=== PATIENT | male | born 1970 | race Caucasian/White ===

== ENCOUNTER 2021-01-02 06:05 | Outpatient (REF) | payer OTHER, SELFPAY ==
[2021-01-02 11:49] LABS: Estimated Average Glucose 252 mg/dL; Hemoglobin A1c % 10.4 %
[2021-01-02 12:08] LABS: Alanine Aminotransferase 59 U/L (0-40); Albumin Level 4.2 g/dL (3.5-5.0); Alkaline Phosphatase 147 U/L (39-117); Anion Gap 16 (12-20); Aspartate Amino Transferase 34 U/L (5-37); Bilirubin Total 0.9 mg/dL (0.0-1.0); Blood Urea Nitrogen 12 mg/dL (9-16); Calcium 8.9 mg/dL (8.4-10.2); Carbon Dioxide 27 mmol/L (22-29); Chloride 99 mmol/L (96-108); Cholesterol 190 mg/dL; Estimated Glomerular Filt Rate > 60; Glucose Fasting 296 mg/dL (60-99); HDL Cholesterol 28 mg/dL; LDL Cholesterol Calculated 114 mg/dl; Potassium 4.6 mmol/L (3.3-5.1); Sodium 137 mmol/L (135-145); Total Protein 7.3 g/dL (6.5-8.0); Triglycerides 241 mg/dL
[2021-01-02 12:28] LABS: Prostate Specific Antigen Scr 0.13 ng/mL (<0.05-4.0); TSH reflex Free T4 1.03 uIU/mL (0.32-4.0)
[2021-01-02 12:29] LABS: Creatinine Urine 180.14 mg/dL; Microalbum/Creatinine Ratio Ur 165.4 ug/mg cr
== END 2021-01-02 06:06 | disposition home or self-care (01) ==
LOC: HO.HMGCLDS 06:05
PROVIDERS: PCP Nurse Practitioner Family; Visit Provider Nurse Practitioner Family
DX: Z00.00 Encounter for general adult medical examination without abnormal findings (principal); Z12.5 Encounter for screening for malignant neoplasm of prostate; E11.9 Type 2 diabetes mellitus without complications
CPT/HCPCS: 36415; 80053; 80061; 82043; 83036; 84153; 84443

== ENCOUNTER 2021-01-08 06:33 | Outpatient (REF) | payer OTHER, SELFPAY ==
[2021-01-08 12:09] LABS: HBsAGNum1 0.25 S/CO (0.00-0.99); Hepatitis B Surface Antigen Negative (Negative); ~HepC Num1 0.07 S/CO (0.00-0.79); ~Hepatitis C Antibody Nonreactive (Nonreactive)
[2021-01-08 12:27] LABS: Gamma Glutamyl Transpeptidase 52 U/L (11-51)
[2021-01-08 12:48] LABS: HBS Num1 0.04 mIU/mL (0-7.99); HBc Num1 0.06 S/CO (0.00-0.79); Hepatitis B Core Antibody Nonreactive (Nonreactive); ~Hepatitis B Surface Antibody NONREACTIVE (Nonreactive)
[2021-01-10 08:43] LABS: Hepatitis A Antibody IgM 0.11 Index (0-0.79); ~Hepatitis A Antibody IgM Nonreactive (Nonreactive)
== END 2021-01-08 06:34 | disposition home or self-care (01) ==
LOC: HO.HMGCLDS 06:33
PROVIDERS: PCP Nurse Practitioner Family; Visit Provider Nurse Practitioner Family
DX: R74.8 Abnormal levels of other serum enzymes (principal)
CPT/HCPCS: 36415; 82977; 86704; 86706; 86709; 86803; 87340

== ENCOUNTER 2021-01-18 07:49 | Outpatient (REF) | payer OTHER, SELFPAY ==
--- NOTE | ~2021-01-18 | US_ITS ---
EXAMINATION: US ABDOMEN COMPLETE CLINICAL INFORMATION: Abnormal levels of serum enzymes. COMPARISON: None TECHNIQUE: Real-time imaging of the abdominal viscera. FINDINGS: Limited exam due to body habitus. PANCREAS: The head and the body of the pancreas are homogeneous in echotexture. The tail of the pancreas is obscured by overlying gas. ABDOMINAL AORTA: The proximal, mid, and distal segments are normal in caliber. INFERIOR VENA CAVA: Visualized portions are normal. LIVER: The liver is enlarged in size. The liver contour is normal. Parenchymal echogenicity is increased. No focal hepatic lesion. There is no intrahepatic biliary duct dilatation seen. GALLBLADDER: There are multiple echogenic mobile gallstones without wall thickening. There is no gallbladder wall thickening. COMMON BILE DUCT: Common bile duct is not visualized. RIGHT KIDNEY: There is an anechoic cyst in the lower pole lateral cortex partially exophytic measuring 0.9 x 0.6 x 0.8 cm. No additional lesions seen. No hydronephrosis. No renal calculi or focal parenchymal lesions. The kidney measures 13.4 cm in maximum dimension. LEFT KIDNEY: Normal. No hydronephrosis. No renal calculi or focal parenchymal lesions. The kidney measures 13.4 cm in maximum dimension. SPLEEN: The spleen is enlarged and homogeneous in echotexture. The spleen measures 15.4 cm in maximum dimension. FREE FLUID: None. US/US abdomen complete IMPRESSION: Multiple mobile echogenic gallstones without wall thickening. Mild hepatomegaly with hepatic steatosis. No focal lesion seen. Simple cyst lower pole right kidney. Mild splenomegaly.
== END 2021-01-18 07:50 | disposition home or self-care (01) ==
LOC: HO.US 07:49
PROVIDERS: PCP Nurse Practitioner Family; Visit Provider Nurse Practitioner Family
DX: R74.8 Abnormal levels of other serum enzymes (principal)
CPT/HCPCS: 76700

== ENCOUNTER → 2021-02-26 09:13 | Outpatient (REF) | payer OTHER, SELFPAY ==
--- NOTE | 2021-02-26 09:16 | CA_ITS ---
Transthoracic Echocardiogram Patient (Last, First, Middle): Jarrett Moore M Gender: Male Date of : 1970 Age: 50 Procedure Date: 02/26/2021 Procedure Type: Transthoracic Echocardiogram Location: OP Height: 187.96 cm Weight: 149.69 kg BSA: 2.69 m2 Heart Rate: bpm BP: 122 / 80 mmHg Fill Technician: RJ Referring MD: Homero Car [facility] Symptoms: R01.1 - Cardiac murmur, unspecified Study Quality: Fair/contrast ECG Rhythm: Sinus Conclusions: - The left ventricular systolic function is normal. The visually estimated ejection fraction is between 60-65%. - No obvious valvular pathology seen on this study. Findings Procedure Information Contrast agent, definity, is being given per protocol without apparent complications. Left Ventricle Normal left ventricular cavity size. There is normal left ventricular wall thickness. The left ventricular systolic function is normal. The visually estimated ejection fraction is between 60-65%. There is no evidence of regional wall motion abnormalities. Diastolic function is normal for age. Right Ventricle Normal right ventricular cavity size and systolic function. Atria The left atrium is normal in size. The right atrium is normal in size. Aortic Valve There is a normal trileaflet aortic valve. There is no aortic valve stenosis. The mean gradient is 4 mmHg. The aortic valve area is 4.03 cm2. There is no aortic valve regurgitation. Mitral Valve There is mild anterior mitral leaflet thickening. There is trace mitral valve regurgitation. There is no mitral valve stenosis. Pulmonic Valve The pulmonic valve was not well visualized. Tricuspid Valve Normal tricuspid valve structure. There is trace tricuspid valve regurgitation. The pulmonary artery systolic pressure is normal. Great Vessels The asc aorta is normal in size. Venous The inferior vena cava is normal in size and collapses greater than 50% with inspiration. Pericardium/Pleural There is no evidence of pericardial effusion. Prior Study Comparison No significant change compared to prior study dated: 01/12/2018. Recommendations, Care & Conclusions No obvious valvular pathology seen on this study. Measurements 2D Linear Measurements IVSd: 1.04 0.6-0.9/0.6-1.0 cm LVIDd: 5.60 3.9-5.3/4.2-5.9 cm LVIDd Index: 2.08 2.4-3.2/2.2-3.1 cm/m2 LVIDs: 3.75 2.0-3.6 cm LVPWd: 1.07 0.7-1.1 cm Ao Root: 3.30 2.1-3.5 cm LA Diam: 4.50 2.7-3.8/3.0-4.0 cm LAIDs Index: 1.67 1.5-2.3 cm/m2 LV Mass: 294.01 67-162/88-224 g LV Mass Index: 109.30 43-95/49-115 g/m2 LVOT Diam: 2.20 3.0+(-)1.3 cm 2D Systolic Function EF 4C: 63.30 >55% EF 2C: 63.70 >55% EF BiP: 63.10 >55% Mitral Valve MV Pk E: 0.85 MV PK A: 0.97 MV Decel Time: 268.00 E/A: 0.90 E'Lateral: 13.10 E'Medial: 7.62 E/E' Med: 11.10 E/E' Lat: 6.50 PHT: 78.00 MVA PHT: 2.82 Decel Kingfisher: 3.16 Aortic Valve AoV Pk Allan: 1.41 AoV Mn Allan: 0.93 AoV VTI: 0.28 AoV Pk Grad: 8.00 Aov Mn Grad: 4.00 WILFRIDO Cont.VTI: 4.03 LVOT LVOT Pk Allan: 1.17 LVOT Mn Allan: 0.85 LVOT VTI: 0.30 LVOT Pk Grad: 5.00 LVOT Mn Grad: 3.00 LVOT Diam: 2.20 LVOT Area: 3.80 Diastolic Function MV Pk E: 0.85 MV Pk A: 0.97 E/A: 0.90 E'Medial: 7.62 E/E' Med: 11.10 E' Laterial: 13.10 E/E' Lat: 6.50 Tricuspid Valve TR Pk Allan: 1.87 TR Pk Grad: 14.00 RA Press: 3.00 RVSP: 17.00 Great Vessels Aorta Ao Root-2D: 3.30 2.0-3.7 cm Ao Asc: 3.50 2.1-3.4 cm Ao Arch: 2.60 Updated in Other Vendor System with Status of Final Juan Spivey MD electronically signed on 02/27/2021 11:25:26 AM with status of Final
== END ==
LOC: HO.CARD 09:13
PROVIDERS: Visit Provider Nurse Practitioner Family
DX: R01.1 Cardiac murmur, unspecified (principal)
CPT/HCPCS: 93306; Q9957

== ENCOUNTER 2021-06-13 06:13 | Outpatient (REF) | payer OTHER, SELFPAY ==
[2021-06-13 12:03] LABS: Alanine Aminotransferase 32 U/L (0-40); Albumin Level 4.3 g/dL (3.5-5.0); Alkaline Phosphatase 90 U/L (39-117); Anion Gap 13 (12-20); Aspartate Amino Transferase 20 U/L (5-37); Bilirubin Total 0.4 mg/dL (0.0-1.0); Blood Urea Nitrogen 14 mg/dL (9-16); Calcium 9.1 mg/dL (8.4-10.2); Carbon Dioxide 25 mmol/L (22-29); Chloride 104 mmol/L (96-108); Cholesterol 186 mg/dL; Estimated Average Glucose 108 mg/dL; Estimated Glomerular Filt Rate > 60; Glucose Fasting 129 mg/dL (60-99); HDL Cholesterol 30 mg/dL; Hemoglobin A1C 148.3331 umol/L; Hemoglobin A1c % 5.4 %; LDL Cholesterol Calculated 130 mg/dl; Potassium 4.4 mmol/L (3.3-5.1); Sodium 138 mmol/L (135-145); Total Protein 7.4 g/dL (6.5-8.0); Triglycerides 130 mg/dL
== END 2021-06-13 06:14 | disposition home or self-care (01) ==
LOC: HO.HMGCLDS 06:13
PROVIDERS: PCP Nurse Practitioner Family; Visit Provider Nurse Practitioner Family
DX: E11.9 Type 2 diabetes mellitus without complications (principal)
CPT/HCPCS: 36415; 80053; 80061; 83036

== ENCOUNTER 2021-09-28 06:11 | Outpatient (REF) | payer OTHER, SELFPAY ==
[2021-09-28 11:37] LABS: Appearance Urine TURBID; Color Urine YELLOW; Glucose Urine UA NEG (NEG); Leukocyte Esterase Urine NEG (NEG); Nitrite Urine NEG (NEG); PH 5.5 (5.0-8.0); Specific Gravity - Urine >= 1.030 (1.005-1.025); Urine Blood NEG (NEG); Urine Ketones NEG (NEG); Urine Protein NEG (NEG-TRACE)
[2021-09-28 11:58] LABS: Estimated Average Glucose 114 mg/dL; Hemoglobin A1c % 5.6 %
[2021-09-28 12:13] LABS: Alanine Aminotransferase 34 U/L (0-40); Albumin Level 4.4 g/dL (3.5-5.0); Alkaline Phosphatase 89 U/L (39-117); Anion Gap 14 (12-20); Aspartate Amino Transferase 20 U/L (5-37); Bilirubin Total 0.7 mg/dL (0.0-1.0); Blood Urea Nitrogen 14 mg/dL (9-16); Calcium 9.4 mg/dL (8.4-10.2); Carbon Dioxide 23 mmol/L (22-29); Chloride 104 mmol/L (96-108); Cholesterol 209 mg/dL; Estimated Glomerular Filt Rate > 60; Glucose Fasting 119 mg/dL (60-99); HDL Cholesterol 27 mg/dL; LDL Cholesterol Calculated 144 mg/dl; Potassium 4.1 mmol/L (3.3-5.1); Sodium 137 mmol/L (135-145); Total Protein 7.6 g/dL (6.5-8.0); Triglycerides 193 mg/dL
[2021-09-28 12:22] LABS: Creatinine Urine 224.71 mg/dL; Microalbum/Creatinine Ratio Ur 21.3 ug/mg cr
[2021-09-28 12:35] LABS: TSH reflex Free T4 1.28 uIU/mL (0.32-4.0)
== END 2021-09-28 06:12 | disposition home or self-care (01) ==
LOC: HO.HMGCLDS 06:11
PROVIDERS: PCP Nurse Practitioner Family; Visit Provider Nurse Practitioner Family
DX: E11.9 Type 2 diabetes mellitus without complications (principal)
CPT/HCPCS: 36415; 80053; 80061; 81003; 82043; 83036; 84443

== ENCOUNTER → 2021-10-01 09:33 | Outpatient (BNVA) | payer OTHER, SELFPAY | PROVIDERS: PCP Nurse Practitioner Family; Referring Provider Nurse Practitioner Family; Visit Provider Surgery ==

== ENCOUNTER → 2021-11-13 10:09 | Outpatient (BNVA) | payer OTHER, SELFPAY | PROVIDERS: PCP Nurse Practitioner Family; Referring Provider Nurse Practitioner Family; Visit Provider Nurse Practitioner ==

== ENCOUNTER 2021-11-27 06:59 | Day surgery (SDC) | payer OTHER, SELFPAY ==
[2021-11-22 16:32] VITALS: BMI 40.8
--- NOTE | 2021-11-26 08:15 | P.CONAN_ITS ---
Documented by User: Shea Irwin NP 11/26/21 08:17 HPI - Anesthesia Eval Consult details Narrative: 51yo M for Hernia Repair Umbilical with Possible Mesh PMFSH Active Problems Active Problems: All Active Problems (Updated 11/22/21 @ 16:30 by Aleja Webster RN) Acute sinusitis (Acute) Occipital neuralgia (Acute) Erectile dysfunction (Acute) GERD (gastroesophageal reflux disease) (Acute) Tendonitis (Acute) Strain of other extensor muscle, fascia and tendon at forearm level, left arm, initial encounter (Acute) Diabetes (Acute) Physical exam (Acute) Screening PSA (prostate specific antigen) (Acute) Systolic murmur (Acute) Folliculitis (Acute) Elevated liver enzymes (Acute) Microalbuminuria (Acute) Lateral epicondylitis of elbow (Acute) Upper respiratory tract infection (Acute) Diabetes (Acute) Umbilical hernia (Acute) Screening for colon cancer (Acute) Dyslipidemia (Acute) Family history of polyps in the colon (Acute) Morbid obesity (Acute) Diabetes mellitus (Acute) Past Medical History Medical History (Updated 11/22/21 @ 16:30 by Aleja Webster RN) Diabetes mellitus Heart murmur Morbid obesity PONV (postoperative nausea and vomiting) Refused pneumococcal vaccination Family History Family History Father No problems noted. Father No problems noted. Surgical History Surgical History (Updated 11/22/21 @ 16:30 by Aleja Webster RN) H/O heart surgery History of surgery on extremity Social History Social History Housing: House Alcohol intake: current Alcohol intake frequency: holidays/special occasions only Patient Tobacco Use Status: Current everyday Tobacco user Tobacco use type: Cigarette Cigarettes Per Day: 15 e-Cigarette/Vaping Use: Never Used Second Hand Smoke Exposure: No Use of substances other than those prescribed or required for medical reasons: No Are you DNR?: No Advance Directives: No Advance Directives Information Provided: Yes Advance Directives on File: No service: No Current occupational status: employed Current occupation: [employer] Current occupational exposures/hazards: No Meds Allergies Allergy/AdvReac Type Severity Reaction Status Date / Time No Known Allergies Allergy Verified 11/27/21 07:07 [No Known Allergies*] Home Medications Medication Instructions Recorded Confirmed Last Taken Type diclofenac sodium 75 mg 75 mg PO Q OTHER DAY 09/10/21 11/22/21 Unknown History tablet,delayed release Exam Exam Date and Time: November 26, 2021 0815 Height,Weight and Vital Signs: Height 6 ft 2 in Weight 144.242 kg Pertinent Lab Results Pertinent Lab Results: Laboratory Tests 09/28/21 06:23 Sodium 137 Potassium 4.1 Chloride 104 Carbon Dioxide 23 BUN 14 Creatinine 0.84 Narrative Narrative: ECHO 02/2021 Conclusions: - The left ventricular systolic function is normal.? The visually estimated ejection fraction is between 60-65%. ? - No obvious valvular pathology seen on this study.? ?? Assessment and Plan Assessment Anesthesia Assessment: Chart Reviewed Documented by User: Brannon Trujillo MD 11/27/21 09:24 [facility] Past Medical History Medical History (Updated 11/22/21 @ 16:30 by Aleja Webster RN) Diabetes mellitus Heart murmur Morbid obesity PONV (postoperative nausea and vomiting) Refused pneumococcal vaccination Family History Family History Father No problems noted. Father No problems noted. Family history of problems with anesthesia: No Surgical History Surgical History (Updated 11/22/21 @ 16:30 by Aleja Webster RN) H/O heart surgery History of surgery on extremity History of Problems with Anesthesia: Yes (PONV) Social History Social History Housing: House Alcohol intake: current Alcohol intake frequency: holidays/special occasions only Patient Tobacco Use Status: Current everyday Tobacco user Tobacco use type: Cigarette Cigarettes Per Day: 15 e-Cigarette/Vaping Use: Never Used Second Hand Smoke Exposure: No Use of substances other than those prescribed or required for medical reasons: No Are you DNR?: No Advance Directives: No Advance Directives Information Provided: Yes Advance Directives on File: No service: No Current occupational status: employed Current occupation: [employer] Current occupational exposures/hazards: No Meds Allergies Allergy/AdvReac Type Severity Reaction Status Date / Time No Known Allergies Allergy Verified 11/27/21 07:07 [No Known Allergies*] Home Medications Medication Instructions Recorded Confirmed Last Taken Type diclofenac sodium 75 mg 75 mg PO Q OTHER DAY 09/10/21 11/22/21 Unknown History tablet,delayed release Exam Airway Mallampati Class: I TM Dist: >3cm Neck ROM: Full Loose/Missing/Broken Teeth: No Heart: ok Lungs: ok Assessment and Plan Final Anesthetic Review Family History of Problems with Anesthesia: No History of Problems with Anesthesia: Yes (PONV) NPO: Yes ASA Class: II Final Preanesthetic Review: No Changes in Pt Med Stat, Meds/Allgs Chart Reviewed, Consent Obtained/Reviewed and Anes Risks/Benef Reviewed Patient Risk: Intermediate Procedure Risk: Low Anesthetic Plan Anesthetic Plan: GA and Agree w/ Assess. and Plan Disposition: Standard PACU
[2021-11-27] VITALS (9 sets, daily range): BP systolic 100–137; BP diastolic 45–88; PULSE 50–63; RESP 14–18; TEMP 36.1–36.9; O2SAT 92–99
[2021-11-27 07:24] LABS: Glucose, Whole Blood 134 mg/dL (60-115)
[2021-11-27] MEDS: Lactated Ringers 1,000 ML 100 ML IVCONT (07:50)
[2021-11-27] MEDS: Scopolamine 1.5 MG PATCH.TD.3 TRANSDERMA (07:57)
--- NOTE | 2021-11-27 08:37 | P.HPSUR_ITS ---
Pre-Procedural Eval Section A Date of Service: 11/27/21 Section B Chief Complaint: Umbilical Hernia Details of Present Illness: has had a reducible mass on the umbilicus with discomfort Relevant Family History (Specify if Yes): No Relevant Social History: None Present Medications: see Short Stay Collaborative assessment Medical History: Significant History ( obesity and diabetes) History of Previous Operations: No relevant previous surgery Allergies: Allergies Allergy/AdvReac Type Severity Reaction Status Date / Time No Known Allergies Allergy Verified 11/27/21 07:07 [No Known Allergies*] Review of Systems Sugical H&P ROS: Negative: Constitution, Cardiovascular, Respiratory, Neurological, Psychiatric, Hem-Onc, Allergic/Immunologic, Gastrointestinal, Genitourinary, Musculoskeletal, Integumentary, Endocrine and Eyes/Ea rs/Nose/Throat Exam Surgical H&P Exam: Normal: HEENT, Normal: Heart, Normal: Lungs, Normal: Extremities, Normal: Skin and Normal: Neurological and Significant Findings: Abdomen ( umbilical hernia reducible, about 2.5 cm) Plan Diagnosis/Plan: Unchanged I have reviewed the history and physical and performed a pertinent physical examination on my patient. No changes have occurred unless specified.
--- NOTE | 2021-11-27 09:52 | W.PM.OPN ---
Operative Note Operative Note Date of Service: 11/27/21 Narrative: Preop diagnosis: umbilical hernia Postop diagnosis: Large umbilical hernia Procedure: Repair of a large umbilical hernia with him size Ventralex mesh , with partial omentectomy Surgeon: Reji Zuleta MD speech language pathology assistant: AVANI Dash The patient is a 51-year-old male who was morbidly obese, with the mass on the umbilicus a little to the right and superiorly. This was consistent with an umbilical hernia. In view of symptoms he wanted to proceed with repair. He understood technique of repair with mesh. He was aware of the risks, benefits, and alternatives. He understood that his perioperative risks are higher in view of his morbid obesity He was brought to the operating room placed supine on the table under general anesthesia via laryngeal mask airway. The abdomen is prepped and draped in the usual sterile fashion. A surgical time-out was done. The patient received cefazolin 2 g IV preoperatively. I infiltrated the planned line of incision using Lidocaine 1%. I made the incision longitudinally adjacent to the umblicus using a blade 15. This was carried down through the full-thickness of the skin and subcutaneous fat with electrocautery. Please note the patient had a pannus and went to go through a thick amount of subcutaneous fat. I was eventually able to see the hernia sac. I gently dissected the sac off of the rest of the thick subcutaneous layer using Metzenbaum scissors and electrocautery until was able to reach the basal layer. I opened the hernia sac to define the fascial edges. I excised part of the hernia sac using electrocautery. The hernia contents were seen and this was all omentum. I continued to separate the hernia contents off the rest of the fascia using electrocautery as well as Metzenbaum scissors. I was able to eventually define the fascial defect. There was large amounts of omentum that was herniated and we could not reduce this through the hernia. I had to do partial omentectomy with serial clamping and ligation using Effie clamps and division of omentum between the clamps with Metzenbaum scissors and ligation of the divided omentum using Dexon 2-0 ties.Eventually, I was able to reduce this omentum totally through the defect. I defined the fascial defect by excising more of the hernia sac. I dissected more adherent omentum from the fascial layers until was able to eventually define the entire hernia defect. This measured about 3.5 cm in diameter. I applied Maciel clamps on the fascial edges. I used a medium-sized Ventralex mesh to reinforce this defect. I secured the Prolene straps to the fascial layer with Prolene 2 sutures and trimmed the Prolene straps of the mesh. I then closed the fascial defect with a running Maxon 1 stitch, incorporating the Prolene side of the mesh periodically during closure. I irrigated the area and reapposed the subcutaneous layer with Dexon 3-0 interrupted sutures. Skin closure achieved with Dexon 4-0 subcuticular running stitch. Steri-Strips and dressings were applied. The procedure was completed. The patient tolerated procedure well. There were no complications noted. Initial and final counts of sponges and instruments were correct. Estimated blood loss was about 25 cc. The patient was extubated without difficulty and transferred to recovery room with stable vital signs.
[2021-11-27] MEDS: Acetaminophen 325 MG TABLET 650 MG PO (10:26)
[2021-11-27] MEDS: oxyCODONE HCl Immed Release 5 MG TABLET 10 MG PO (10:26)
[2021-11-27] MEDS: fentaNYL citrate/PF 100 MCG/2 ML VIAL 50 MCG IVPUSH (10:42)
== END 2021-11-27 11:41 | disposition home or self-care (01) ==
PROVIDERS: PCP Nurse Practitioner Family; Visit Provider Surgery
PROC: (CPT 49585; principal; 2021-11-27 08:40)
DX: K42.9 Umbilical hernia without obstruction or gangrene (principal); E11.9 Type 2 diabetes mellitus without complications; E66.01 Morbid (severe) obesity due to excess calories; Z68.41 Body mass index [BMI] 40.0-44.9, adult; R01.1 Cardiac murmur, unspecified; Z79.84 Long term (current) use of oral hypoglycemic drugs; Z79.899 Other long term (current) drug therapy; Z98.890 Other specified postprocedural states
CPT/HCPCS: 49585; 82947; 88302; 88304; C1781; J0690; J1100; J1885; J2250; J2405; J3010

== ENCOUNTER → 2021-12-10 14:05 | Outpatient (BNVA) | payer OTHER, SELFPAY | PROVIDERS: PCP Nurse Practitioner Family; Referring Provider Nurse Practitioner Family; Visit Provider Surgery | DX: Z09 Encounter for follow-up examination after completed treatment for conditions other than malignant neoplasm (principal); F17.210 Nicotine dependence, cigarettes, uncomplicated; Z87.19 Personal history of other diseases of the digestive system | CPT/HCPCS: 99212 ==

== ENCOUNTER 2022-06-07 13:53 | Day surgery (SDC) | payer OTHER, SELFPAY ==
[2022-06-04 14:57] VITALS: BMI 41.2
[2022-06-07 14:01] VITALS: BMI 38.5
[2022-06-07 14:06] VITALS: BP 143/86; PULSE 73; RESP 16; TEMP 36.4; O2SAT 97
--- NOTE | 2022-06-07 14:16 | P.CONAN_ITS ---
[facility] Active Problems Active Problems: All Active Problems (Updated 06/04/22 @ 14:56 by Niki Monique RN) Acute sinusitis (Acute) Occipital neuralgia (Acute) Erectile dysfunction (Acute) GERD (gastroesophageal reflux disease) (Acute) Tendonitis (Acute) Strain of other extensor muscle, fascia and tendon at forearm level, left arm, initial encounter (Acute) Diabetes (Acute) Physical exam (Acute) Screening PSA (prostate specific antigen) (Acute) Systolic murmur (Acute) Folliculitis (Acute) Elevated liver enzymes (Acute) Microalbuminuria (Acute) Lateral epicondylitis of elbow (Acute) Upper respiratory tract infection (Acute) Diabetes (Acute) Umbilical hernia (Acute) Screening for colon cancer (Acute) Dyslipidemia (Acute) Family history of polyps in the colon (Acute) Morbid obesity (Acute) Diabetes mellitus (Acute) Past Medical History Medical History (Updated 06/04/22 @ 14:56 by Niki Monique RN) Diabetes mellitus Elevated cholesterol GERD (gastroesophageal reflux disease) Heart murmur Morbid obesity PONV (postoperative nausea and vomiting) Refused pneumococcal vaccination Family History Family History Father No problems noted. Father No problems noted. Family history of problems with anesthesia: No Surgical History Surgical History (Updated 06/04/22 @ 14:53 by Niki Monique RN) H/O heart surgery History of surgery on extremity History of umbilical hernia repair (~11/27/21) History of Problems with Anesthesia: Yes Social History Social History Housing: House Alcohol intake: current Alcohol intake frequency: holidays/special occasions only Patient Tobacco Use Status: Current everyday Tobacco user Tobacco use type: Cigarette Cigarettes Per Day: 15 Years Smoked: 25 Smoked in Last 30 Days: Yes e-Cigarette/Vaping Use: Never Used Second Hand Smoke Exposure: No Use of substances other than those prescribed or required for medical reasons: No Are you DNR?: No Advance Directives: No Advance Directives Information Provided: Yes service: No Current occupational status: employed Current occupation: [employer] Current occupational exposures/hazards: No Meds Allergies Allergy/AdvReac Type Severity Reaction Status Date / Time No Known Allergies Allergy Verified 06/07/22 14:08 [No Known Allergies*] Exam Exam Date and Time: June 07, 2022 1416 Height,Weight and Vital Signs: Height 6 ft 2 in Weight 136.078 kg Last Vital Signs Temp 97.5 F 06/07/22 14:06 Pulse 73 06/07/22 14:06 Resp 16 06/07/22 14:06 BP 143/86 H 06/07/22 14:06 Pulse Ox 97 06/07/22 14:06 O2 Del Method 06/07/22 14:06 Airway Mallampati Class: II TM Dist: >3cm Heart: RRR Lungs: CTA Assessment and Plan Assessment Anesthesia Assessment: Anesthesia Plan Discussed and Chart Reviewed Final Anesthetic Review Family History of Problems with Anesthesia: No History of Problems with Anesthesia: Yes NPO: Yes ASA Class: III Final Preanesthetic Review: No Changes in Pt Med Stat, Meds/Allgs Chart Reviewed, Consent Obtained/Reviewed and Anes Risks/Benef Reviewed Patient Risk: Intermediate Procedure Risk: Low Anesthetic Plan Anesthetic Plan: MAC: Disposition: Standard PACU
[2022-06-07 14:18] LABS: Glucose, Whole Blood 116 mg/dL (60-115)
--- NOTE | 2022-06-07 14:30 | MHC.SHP ---
Pre-Procedural Eval Section A Date of Service: 06/07/22 The patient is an INPATIENT: No The History & Physical has been completed within 30 days and I have reviewed it.: No Section B Chief Complaint: screening Details of Present Illness: Colon cancer screening Relevant Family History (Specify if Yes): Yes Relevant Social History: Tobacco Use Present Medications: see Short Stay Collaborative assessment Medical History: Significant History (Morbid obesity High cholesterol Diabetes Occipital neuralgia Systolic heart murmur Umbilical hernia Erectile dysfunction GERD) History of Previous Operations: Relevant previous surgery/procedure and date(s) (Repair septal defect-infancy Multiple cyst removals dermal) Allergies: Allergies Allergy/AdvReac Type Severity Reaction Status Date / Time No Known Allergies Allergy Verified 06/07/22 14:08 [No Known Allergies*] Review of Systems Sugical H&P ROS: Negative: Constitution, Cardiovascular, Respiratory and Gastrointestinal Exam Surgical H&P Exam: Normal: Heart, Normal: Lungs, Normal: Extremities and Normal: Abdomen Plan Diagnosis/Plan: Unchanged I have reviewed the history and physical and performed a pertinent physical examination on my patient. No changes have occurred unless specified.
--- NOTE | 2022-06-07 14:35 | W.PM.OPN ---
Operative Note Operative Note Date of Service: 06/07/22 Narrative: Pre-op diagnosis: Colon cancer screening, family history of colon polyps - mom in her 70's Post-op diagnosis:?other (Colon polyps, diverticulosis, hemorrhoids) Procedure: COLONOSCOPY TILL CECUM WITH BIOPSIES, SNARE POLYPECTOMY AND HEMOCLIP PLACEMENT Consent: Indications for the procedure and potential complications of bleeding, perforation, reaction to medications and missed diagnosis were discussed with the patient and informed consent was obtained. Instrument: Olympus CF H 190 L variable stiffness adult colonoscope Monitoring: Vital signs and clinical assessment, intermittent blood pressure monitoring, continuous EKG monitoring, Pulse oximetry and Carbon Dioxide monitoring were done throughout the procedure. Colon withdrawl time was 25 minutes. Procedure: The patient was placed in the left lateral decubitis position and pre-procedure medications were administered. After a digital rectal examination of the ano-rectum, the video colonoscope was inserted into the rectum and advanced through the colon to the cecum. The colonoscope was slowly withdrawn in a retrograde panoramic fashion and the colon mucosa was carefully examined including a retroflexed view of the rectum. Findings and interventions are described below. Procedure Difficulty: Without difficulty Findings: Terminal Ileum: Not evaluated Cecum:? Normal Ascending Colon:? Two 4-8 mm sessile polyps in the distal AC removed with a cold bx and a cold snare. Transverse Colon:? Two 8 to 12 mm sessile polyps removed with a hot snare and a cold snare Descending Colon:? Moderate diverticulosis Sigmoid Colon:? Two 12-15 mm sessile polyps removed with a hot snare. A 2 cms pedunculated polyp at 30 cms - removed with a hot snare Polypectomy site was closed with a hemoclip. Moderate diverticulosis. Rectum:? Normal Ano-rectum:? Moderate internal hemorrhoids Colon preparation:? Good? Impression and Post Procedure Diagnosis: Colonoscopy Findings: Two small and five medium to large sized polyps removed Moderate diverticulosis seen in the left colon Moderate hemorrhoids on retroflexed exam. Plan: Await pathology results Patient has an appointment on 06/21/22 in the GI Clinic with? Ina Medina NP? . Repeat Colonoscopy interval based on path results - in 2 years if polyps are adenomatous and 5 years if polyps are hyperplastic. Above findings were reviewed with the patient and colon polyps and diverticulosis handouts were given in the discharge area Surgeon: Jasper Devlin MD Anesthesia:?MAC (Dr Pham) Was an Sheet Roller Operator used for this Procedure?:?Yes Sheet Roller Operator:?Felicitas Goddard Estimated blood loss (mL):?0 Pathology:?other (A. ascending colon polyps (2)? B. transverse colon polyps (2)? C. sigmoid polyps (2)? D. polyp @ 30 cm) Condition:?stable Disposition:?PACU
[2022-06-07 15:20] VITALS: BP 105/58; PULSE 66; RESP 19; TEMP 36.4; O2SAT 98
[2022-06-07 15:35] VITALS: BP 111/66; PULSE 64; RESP 16; TEMP 36.4; O2SAT 98
== END 2022-06-07 15:58 | disposition home or self-care (01) ==
PROVIDERS: PCP Internal Medicine Gastroenterology; Visit Provider Internal Medicine Gastroenterology
PROC: 0DJD8ZZ Inspection of Lower Intestinal Tract, Via Natural or Artificial Opening Endoscopic (ICD-10-PCS; CPT 45378; principal; 2022-06-07 13:20)
DX: Z12.11 Encounter for screening for malignant neoplasm of colon (principal); Z83.71 Family history of colonic polyps; D12.3 Benign neoplasm of transverse colon; D12.5 Benign neoplasm of sigmoid colon; K51.40 Inflammatory polyps of colon without complications; K57.30 Diverticulosis of large intestine without perforation or abscess without bleeding; K64.8 Other hemorrhoids; K21.9 Gastro-esophageal reflux disease without esophagitis; E78.00 Pure hypercholesterolemia, unspecified; E11.9 Type 2 diabetes mellitus without complications; M54.81 Occipital neuralgia; E66.01 Morbid (severe) obesity due to excess calories; Z68.41 Body mass index [BMI] 40.0-44.9, adult; Z79.84 Long term (current) use of oral hypoglycemic drugs; Z79.899 Other long term (current) drug therapy; F17.210 Nicotine dependence, cigarettes, uncomplicated
CPT/HCPCS: 45385; 45380; 82947; 88305

== ENCOUNTER 2022-10-28 06:07 | Outpatient (REF) | payer OTHER, SELFPAY ==
[2022-10-28 11:21] LABS: Color Urine Yellow; Glucose Urine UA Negative (Negative); Leukocyte Esterase Urine Negative (Negative); Nitrite Urine Negative (Negative); PH 5.5 (5.0-9.0); Specific Gravity - Urine 1.025 (1.005-1.025); Urine Blood Negative (Negative); Urine Ketones Negative (Negative); Urine Protein Negative (Neg-Trace)
[2022-10-28 11:31] LABS: Appearance Urine Cloudy
[2022-10-28 11:36] LABS: MANUAL DIFF FLAG NO
[2022-10-28 11:42] LABS: Basophils Percent Auto 0.6 % (0-2); Eosinophils Absolute Auto 0.1 X10*3/uL (0.0-0.4); Eosinophils Percent Auto 1.8 % (0-4); Hematocrit 49.7 % (42.0-52.0); Hemoglobin 16.7 g/dl (14.0-18.0); Imm Gran Abs Auto 0.02 X10*3/uL (0.00-0.03); Imm Gran Pct Auto 0.3 % (0.0-0.4); Lymphocytes Absolute Auto 2.1 X10*3/uL (1.2-4.9); Mean Corpuscular HGB Conc 33.6 g/dl (31.0-36.0); Mean Corpuscular Hemoglobin 29.6 pg (27.0-33.0); Mean Corpuscular Volume 88.1 fL (80.0-98.0); Mean Platelet Volume 11.1 fL (9.4-12.4); Monocytes Absolute Auto 0.6 X10*3/uL (0.1-1.2); Monocytes Percent Auto 7.7 % (2-11); Neutrophils Absolute Auto 4.4 x10*3/uL (2.0-8.3); Neutrophils Percent Auto 60.6 % (45-73); Platelet Count 180 X10*3/uL (160-400); Red Blood Count 5.64 X10*6/uL (4.60-5.80); Red Cell Distribution Width 12.7 % (11.0-16.0); White Blood Count 7.2 X10*3/uL (4.8-10.8)
[2022-10-28 12:01] LABS: Estimated Average Glucose 128 mg/dL; Hemoglobin A1C 192.1495 umol/L; Hemoglobin A1c % 6.1 %
[2022-10-28 12:37] LABS: Alanine Aminotransferase 39 U/L (0-40); Alkaline Phosphatase 91 U/L (39-117); Anion Gap 14 (12-20); Aspartate Amino Transferase 23 U/L (5-37); Bilirubin Total 0.5 mg/dL (0.0-1.0); Blood Urea Nitrogen 12 mg/dL (9-16); Calcium 9.2 mg/dL (8.4-10.2); Carbon Dioxide 26 mmol/L (22-29); Chloride 106 mmol/L (96-108); Cholesterol 136 mg/dL; Estimated Glomerular Filt Rate > 60; Glucose Fasting 153 mg/dL (60-99); HDL Cholesterol 32 mg/dL; LDL Cholesterol Calculated 83 mg/dl; Potassium 4.8 mmol/L (3.3-5.1); Prostate Specific Antigen Scr 0.17 ng/mL (<0.05-4.0); Sodium 141 mmol/L (135-145); TSH reflex Free T4 1.19 uIU/mL (0.32-4.0); Total Protein 6.8 g/dL (6.5-8.0); Triglycerides 108 mg/dL
[2022-10-28 12:47] LABS: Creatinine Urine 178.32 mg/dL
== END 2022-10-28 06:08 | disposition home or self-care (01) ==
LOC: HO.HMGCLDS 06:07
PROVIDERS: PCP Nurse Practitioner Family; Visit Provider Nurse Practitioner Family
DX: Z00.00 Encounter for general adult medical examination without abnormal findings (principal); Z12.5 Encounter for screening for malignant neoplasm of prostate; E11.9 Type 2 diabetes mellitus without complications
CPT/HCPCS: 36415; 80053; 80061; 81003; 82043; 83036; 84153; 84443; 85025

== ENCOUNTER 2023-04-14 09:45 | Outpatient (AMB) | payer OTHER, SELFPAY ==
--- NOTE | 2023-04-14 09:50 | MHC.PC.OV ---
Vital Signs 04/14/23 09:53 Height 6 ft 2 in Weight 332 lb 4 oz BMI 42.7 BP 132/78 Blood Pressure Location Lt brachial Position Sitting Pulse 72 Pulse Source Pulse Oximeter Pulse Oximetry (%) 97 Oxygen Delivery Method Room Air Intake Visit Reasons: 6 Month follow up Allergies No Known Allergies [No Known Allergies*] Allergy (Verified 04/14/23 09:56) Medication List - Last Reconciled 04/14/23 by NORMA Reddy alcohol swabs (Alcohol Prep Pads) 1 pad topical BID 30 days atorvastatin 10 mg PO BEDTIME 90 days blood sugar diagnostic (FreeStyle Lite Strips) Use to check fasting blood sugar in am and random blood sugar during the day. cyclobenzaprine 10 mg PO BEDTIME PRN diclofenac sodium 75 mg PO Q OTHER DAY 90 days lancets (FreeStyle Lancets) Use to check fasting blood sugar in am and random blood sugar during the day. metformin 500 mg PO BID 90 days omeprazole 20 mg PO DAILY sildenafil 50 mg PO DAILY PRN 10 days Tobacco use date assessed: 04/14/23 Dental Screening Dental Screen Date: 04/14/23 Did you have a dental visit in the last 12 months?: No Did you have a dental problem in the last 6 months where you did not have access to dental care?: No Was dental information given to patient?: Patient has dentist HPI 6 Month follow up HPI Details Pt is a diabetic, on a statin. A1c in office today is 6.8. Microalbumin is up to date. Denies polyuria, polydipsia, and neuropathy. Pt denies any signs and symptoms of hypoglycemia and does know how to correct it. Eye exam is up to date. Pt does not check his blood sugar at home. He is interested in a sensor/transmitter, will try to send this. Will start ozempic 0.25mg. Refuses pneumonia vaccine. Will start low-dose NICHOLE. [facility] Medical History Diabetes mellitus Elevated cholesterol GERD (gastroesophageal reflux disease) Heart murmur Morbid obesity PONV (postoperative nausea and vomiting) Refused pneumococcal vaccination Surgical History H/O colonoscopy H/O heart surgery History of surgery on extremity History of umbilical hernia repair (~11/27/21) Family History Father No problems noted. Father Substance use disorder Mother Substance use disorder Maternal Uncle Substance use disorder Sister Substance use disorder Social History Housing: House Alcohol intake: current Alcohol intake frequency: holidays/special occasions only Patient Tobacco Use Status: Current everyday Tobacco user Tobacco use type: Cigarette Cigarettes Per Day: 15 Years Smoked: 25 e-Cigarette/Vaping Use: Never Used Second Hand Smoke Exposure: Yes service: No Current occupational status: employed Current occupation: [employer] Current occupational exposures/hazards: No Cognitive needs: No Hearing needs: No Vision needs: No Questionnaire Thrive Questionnaire Date Thrive assessed: 10/14/22 IRENE-7 AMB Questionnaire IRENE-7 Date IRENE - 7 assessed: 10/14/22 Source: Developed by Drs. Je Gonzalez, Saray Villafana, Elian Hatfield and colleagues, with an educational yamileth from [employer]. Review of Systems Const Reports as per HPI Physical exam (Primary Care) Vital Signs: Last Vital Signs Pulse 72 04/14/23 09:53 BP 132/78 04/14/23 09:53 Pulse Ox 97 04/14/23 09:53 Oxygen Delivery Method Room Air 04/14/23 09:53 BMI result Body Mass Index 42.7 Tobacco/Smoking Status: Tobacco use Status Tobacco use date assessed 04/14/23 04/14/23 09:57 Patient Tobacco Use Status Current everyday Tobacco 04/14/23 09:50 Tobacco use type Cigarette 04/14/23 09:50 e-Cigarette/Vaping Use Never Used 04/14/23 09:50 Thrive Assessment: Date of Thrive Assessment Date Thrive assessed 10/14/22 04/14/23 09:50 Const General: cooperative Nutritional Appearance: obese morbidly obese Orientation/consciousness: patient oriented x3 Neuro General: patient oriented x3 Extrem Other: bilat feet: + sensation with use of monofilament, feet intact Psych Appearance: grossly normal Mental Status: mental status grossly normal Speech and movement: Normal speech and movement present Affect: normal affect Attitude: cooperative Thought process: Normal thought process present Thought content: Normal thought content present Insight: Good insight present (Psych) Judgement: Good judgement present (Psych) Results AMB Hemoglobin A1c AMB Hemoglobin A1c 6.8 % Last Edit by Denae Crabtree CMA on 04/14/23 10:22 Assessment and Plan Assessment & Plan (1) Diabetes: Code(s): E11.9 - Type 2 diabetes mellitus without complications Qualifiers: Diabetes mellitus complication status: without complication Diabetes mellitus vermin exterminator insulin use: with vermin exterminator use Diabetes mellitus type: type 2 Qualified Code(s): E11.9 - Type 2 diabetes mellitus without complications; Z79.4 - watermelon inspector (current) use of insulin Plan: Labs ordered Plan The patient agreed to the use of a medical service representative for this encounter. Scribed for NORMA Ibrahim by Mary Rivera medical service representative, on 04/14/2023 at 10:10 EST. Orders: Orders Comprehensive [place]. Panel Fast Today E11.9 - Type 2 diabetes mellitus without complications Lipid Panel Today E11.9 - Type 2 diabetes mellitus without complications TSH reflex Free T4 Today E11.9 - Type 2 diabetes mellitus without complications Complete Blood Count Auto Diff Today E11.9 - Type 2 diabetes mellitus without complications UA CC w/rflx Micro + Cult Today E11.9 - Type 2 diabetes mellitus without complications AMB Hemoglobin A1c Today E11.9 - Type 2 diabetes mellitus without complications Medications: New lisinopril 2.5 mg PO DAILY 30 tabs 3RF semaglutide (Ozempic) for 4 weeks 0.25 mg (0.4 mL) subcut QWEEK 3 mL 2RF Coding Level of Care Code Est Pt Level 3 (58239) Diagnoses Diabetes E11.9; Z79.4 Diabetes mellitus complication status: without complication Diabetes mellitus vermin exterminator insulin use: with vermin exterminator use Diabetes mellitus type: type 2
[2023-04-14 09:53] VITALS: BP 132/78; PULSE 72; O2SAT 97; BMI 42.7
== END 2023-04-14 10:23 | disposition home or self-care (01) ==
PROVIDERS: PCP Nurse Practitioner Family; Visit Provider Nurse Practitioner Family
DX: E11.9 Type 2 diabetes mellitus without complications (principal); Z79.4 Long term (current) use of insulin
CPT/HCPCS: 83036; 99213

== ENCOUNTER 2023-04-28 06:04 | Outpatient (REF) | payer OTHER, SELFPAY ==
[2023-04-28 11:53] LABS: Appearance Urine Turbid; Color Urine Dark Yellow; Glucose Urine UA Negative (Negative); Leukocyte Esterase Urine Negative (Negative); Nitrite Urine Negative (Negative); PH 5.5 (5.0-9.0); Specific Gravity - Urine >= 1.030 (1.005-1.025); Urine Blood Negative (Negative); Urine Ketones Trace mg/dL (Negative); Urine Protein Trace mg/dL (Neg-Trace)
[2023-04-28 11:59] LABS: MANUAL DIFF FLAG NO
[2023-04-28 12:15] LABS: Basophils Percent Auto 0.6 % (0-2); Eosinophils Absolute Auto 0.1 X10*3/uL (0.0-0.4); Eosinophils Percent Auto 1.8 % (0-4); Hematocrit 50.4 % (42.0-52.0); Hemoglobin 16.6 g/dl (14.0-18.0); Imm Gran Abs Auto 0.03 X10*3/uL (0.00-0.03); Imm Gran Pct Auto 0.5 % (0.0-0.4); Lymphocytes Absolute Auto 1.8 X10*3/uL (1.2-4.9); Lymphocytes Percent Auto 26.8 % (20-40); Mean Corpuscular HGB Conc 32.9 g/dl (31.0-36.0); Mean Corpuscular Hemoglobin 29.9 pg (27.0-33.0); Mean Corpuscular Volume 90.6 fL (80.0-98.0); Mean Platelet Volume 11.4 fL (9.4-12.4); Monocytes Absolute Auto 0.6 X10*3/uL (0.1-1.2); Monocytes Percent Auto 8.9 % (2-11); Neutrophils Absolute Auto 4.1 x10*3/uL (2.0-8.3); Neutrophils Percent Auto 61.4 % (45-73); Platelet Count 178 X10*3/uL (160-400); Red Blood Count 5.56 X10*6/uL (4.60-5.80); Red Cell Distribution Width 12.8 % (11.0-16.0); White Blood Count 6.7 X10*3/uL (4.8-10.8)
[2023-04-28 12:52] LABS: Alanine Aminotransferase 46 U/L (0-40); Alkaline Phosphatase 88 U/L (39-117); Anion Gap 15 (12-20); Aspartate Amino Transferase 29 U/L (5-37); Bilirubin Total 0.5 mg/dL (0.0-1.0); Blood Urea Nitrogen 12 mg/dL (9-16); Calcium 9.3 mg/dL (8.4-10.2); Carbon Dioxide 22 mmol/L (22-29); Chloride 105 mmol/L (96-108); Cholesterol 136 mg/dL; Estimated Glomerular Filt Rate > 60; Glucose Fasting 152 mg/dL (60-99); HDL Cholesterol 29 mg/dL; LDL Cholesterol Calculated 84 mg/dl; Potassium 4.4 mmol/L (3.3-5.1); Sodium 138 mmol/L (135-145); Total Protein 7.4 g/dL (6.5-8.0); Triglycerides 115 mg/dL
[2023-04-28 12:55] LABS: TSH reflex Free T4 0.98 uIU/mL (0.32-4.0)
== END 2023-04-28 06:05 | disposition home or self-care (01) ==
LOC: HO.HMGCLDS 06:04
PROVIDERS: PCP Nurse Practitioner Family; Visit Provider Nurse Practitioner Family
DX: E11.9 Type 2 diabetes mellitus without complications (principal)
CPT/HCPCS: 36415; 80053; 80061; 81003; 84443; 85025

== ENCOUNTER 2023-06-24 14:26 | Outpatient (AMB) | payer OTHER, SELFPAY ==
--- NOTE | 2023-06-24 15:30 | MHC.OFFWIV ---
Intake Vital Signs 06/24/23 15:32 Height 6 ft 2 in Weight 324 lb BMI 41.6 BP 122/70 Blood Pressure Location Lt brachial Position Sitting Pulse 78 Pulse Source Pulse Oximeter Temp 97.9 F Temp Source Temporal Artery Scan Pulse Oximetry (%) 96 Intake Visit Reasons: EP Cold 1 week [phone] Intake Note: pt is here for c/o cough, head and chest congestion, fatigue Patient Tobacco Use Status: Current everyday Tobacco user Allergies No Known Allergies [No Known Allergies*] Allergy (Verified 06/24/23 16:18) Medication List - Last Reconciled 06/24/23 by Zander Orellana MD alcohol swabs (Alcohol Prep Pads) 1 pad topical BID 30 days atorvastatin 10 mg PO BEDTIME 90 days blood sugar diagnostic (FreeStyle Lite Strips) Use to check fasting blood sugar in am and random blood sugar during the day. Dexcom G7 Lead Developer (blood-glucose meter,continuous) tid testing NS Dexcom G7 Sensor (blood-glucose sensor) tid testing NS diclofenac sodium 75 mg PO Q OTHER DAY 90 days FreeStyle Boyd 2 [place] (flash glucose scanning reader) Tid testing NS FreeStyle Boyd 2 Sensor (flash glucose sensor) TID testing NS lancets (FreeStyle Lancets) Use to check fasting blood sugar in am and random blood sugar during the day. lisinopril 2.5 mg PO DAILY metformin 500 mg PO BID 90 days omeprazole 20 mg PO DAILY semaglutide (Ozempic) 0.25 mg (0.368 mL) subcut QWEEK sildenafil 50 mg PO DAILY PRN 10 days Do you need a note to return to daycare/school/sports/work: Yes HPI EP Cold 1 week [phone] HPI Details Patient presents for a sick visit. Reporting symptoms of sinus congestion, sore throat and difficulty swallowing. Low-grade fever. No family member is sick. No recent travel. Patient reports symptoms of malaise and fatigue. [facility] Medical History Diabetes mellitus Elevated cholesterol GERD (gastroesophageal reflux disease) Heart murmur Morbid obesity PONV (postoperative nausea and vomiting) Refused pneumococcal vaccination Surgical History H/O colonoscopy H/O heart surgery History of surgery on extremity History of umbilical hernia repair (~11/27/21) Family History Father No problems noted. Father Substance use disorder Mother Substance use disorder Maternal Uncle Substance use disorder Sister Substance use disorder Social History Housing: House Alcohol intake: current Alcohol intake frequency: holidays/special occasions only Patient Tobacco Use Status: Current everyday Tobacco user Tobacco use type: Cigarette Cigarettes Per Day: 15 Years Smoked: 25 e-Cigarette/Vaping Use: Never Used Second Hand Smoke Exposure: Yes service: No Current occupational status: employed Current occupation: [employer] Current occupational exposures/hazards: No Cognitive needs: No Hearing needs: No Vision needs: No Physical Exam Vital Signs: Last Vital Signs Temp 97.9 F 06/24/23 15:32 Pulse 78 06/24/23 15:32 BP 122/70 06/24/23 15:32 Pulse Ox 96 06/24/23 15:32 BMI result Body Mass Index 41.6 Const General: cooperative and healthy appearing Nutritional Appearance: well nourished Orientation/consciousness: patient oriented x3 Limitations: no limitations HEENT Head: Yes normal to inspection Eyes General: appearance normal, both eyes and all related structures Neck Neck: Yes normal visual inspection Chest Chest palpation & inspection: normal palpation of entire chest wall Resp Effort & Inspection: normal respiratory effort Neuro General: patient oriented x3 Assessment & Plan Assessment & Plan (1) Upper respiratory tract infection: Code(s): J06.9 - Acute upper respiratory infection, unspecified Plan: Antibiotics ordered. Increase fluid intake. Tylenol for aches and pains. If symptoms worsen, follow-up here for a recheck. Coding Level of Care Code Est Pt Level 3 (69608) Diagnoses Upper respiratory tract infection J06.9
[2023-06-24 15:32] VITALS: BP 122/70; PULSE 78; TEMP 36.6; O2SAT 96; BMI 41.6
== END 2023-06-24 16:25 | disposition home or self-care (01) ==
PROVIDERS: PCP Nurse Practitioner Family; Visit Provider Internal Medicine
DX: J06.9 Acute upper respiratory infection, unspecified (principal)
CPT/HCPCS: 99213

== ENCOUNTER 2023-07-28 09:44 | Outpatient (AMB) | payer OTHER, SELFPAY ==
[2023-07-28 11:50] VITALS: BP 130/80; PULSE 85; TEMP 36.6; O2SAT 97; BMI 41.6
--- NOTE | 2023-07-28 11:50 | AM.OFFWIN_ITS ---
Intake Vital Signs 07/28/23 11:50 Height 6 ft 2 in Weight 324 lb BMI 41.6 BP 130/80 Blood Pressure Location Rt brachial Position Sitting Pulse 85 Pulse Source Pulse Oximeter Temp 97.9 F Temp Source Temporal Artery Scan Pulse Oximetry (%) 97 Oxygen Delivery Method Room Air Intake Visit Reasons: EST/right arm sore [phone] Intake Note: pt is here for c.o left arm pain, denies injury, ongoing for 2 months Patient Tobacco Use Status: Current everyday Tobacco user Allergies No Known Allergies [No Known Allergies*] Allergy (Verified 08/03/23 17:13) Medication List - Last Reconciled 08/03/23 by Zander Orellana MD alcohol swabs (Alcohol Prep Pads) 1 pad topical BID 30 days atorvastatin 10 mg PO BEDTIME 90 days blood sugar diagnostic (FreeStyle Lite Strips) Use to check fasting blood sugar in am and random blood sugar during the day. Dexcom G7 [employer] (blood-glucose meter,continuous) tid testing NS Dexcom G7 Sensor (blood-glucose sensor) tid testing NS diclofenac sodium 75 mg PO Q OTHER DAY 90 days FreeStyle Boyd 2 [place] (flash glucose scanning reader) Tid testing NS FreeStyle Boyd 2 Sensor (flash glucose sensor) TID testing NS lancets (FreeStyle Lancets) Use to check fasting blood sugar in am and random blood sugar during the day. lisinopril 2.5 mg PO DAILY metformin 500 mg PO BID 90 days omeprazole 20 mg PO DAILY semaglutide (Ozempic) 0.25 mg (0.368 mL) subcut QWEEK sildenafil 50 mg PO DAILY PRN 10 days Do you need a note to return to daycare/school/sports/work: Yes HPI EST/right arm sore [phone] HPI Details 52-year-old heavyset male presents to [facility] office for a sick visit. Patient reports pain in his right forearm for the past month. Does not recall any fall or injury. 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 [facility] Medical History Diabetes mellitus Elevated cholesterol GERD (gastroesophageal reflux disease) Heart murmur Morbid obesity PONV (postoperative nausea and vomiting) Refused pneumococcal vaccination Surgical History H/O colonoscopy H/O heart surgery History of surgery on extremity History of umbilical hernia repair (~11/27/21) Family History Father No problems noted. Father Substance use disorder Mother Substance use disorder Maternal Uncle Substance use disorder Sister Substance use disorder Social History Housing: House Alcohol intake: current Alcohol intake frequency: holidays/special occasions only Patient Tobacco Use Status: Current everyday Tobacco user Tobacco use type: Cigarette Cigarettes Per Day: 15 Years Smoked: 25 e-Cigarette/Vaping Use: Never Used Second Hand Smoke Exposure: Yes service: No Current occupational status: employed Current occupation: [employer] Current occupational exposures/hazards: No Cognitive needs: No Hearing needs: No Vision needs: No Physical Exam Vital Signs: Last Vital Signs Temp 97.9 F 07/28/23 11:50 Pulse 85 07/28/23 11:50 BP 130/80 07/28/23 11:50 Pulse Ox 97 07/28/23 11:50 Oxygen Delivery Method Room Air 07/28/23 11:50 BMI result Body Mass Index 41.6 Const General: cooperative and healthy appearing Nutritional Appearance: well nourished Orientation/consciousness: patient oriented x3 Limitations: no limitations HEENT Head: Yes normal to inspection Eyes General: appearance normal, both eyes and all related structures Neck Neck: Yes normal visual inspection Chest Chest palpation & inspection: normal palpation of entire chest wall Resp Effort & Inspection: normal respiratory effort Neuro General: patient oriented x3 Extrem Other: Right arm: Forearm: Tenderness over the dorsum of the forearm. Minimal discomfort over the epicondyles. Assessment & Plan Assessment & Plan (1) Tendonitis: Code(s): M77.9 - Enthesopathy, unspecified Plan: Rest of the arm and forearm. NSAIDs as tolerated. Orders: Orders PT Evaluation and Treatment 07/28/23 M77.9 - Enthesopathy, unspecified Coding Level of Care Code Est Pt Level 3 (99697) Diagnoses Tendonitis M77.9
== END 2023-07-28 12:39 | disposition home or self-care (01) ==
PROVIDERS: PCP Nurse Practitioner Family; Visit Provider Internal Medicine
DX: M77.9 Enthesopathy, unspecified (principal)
CPT/HCPCS: 99213

== ENCOUNTER 2023-09-29 07:30 | Outpatient (RCR) | payer OTHER, SELFPAY ==
--- NOTE | 2023-09-01 08:55 | MHC.OT.EP ---
[address] [phone] Occupational Therapy Plan of Care Patient Name: Jarrett Moore Date of Evaluation: 09/01/23 Diagnosis: Left forearm pain Pain Location: Left arm deep pain, radiating down forearm Numbness w/ prolonged pressure to arm Pain Score: 5 Pain Scale Used: Numeric (0 - 10) Aggravating Factors: Resting arm on desk/table Neck extension Alleviating Factors: Nothing tried due to inconsistency Assessment: 52 yo male was seen in walk-in clinic 07/28 for persistent left forearm pain for several months. On assessment today, he reports pain in primarily when sitting at his desk or with prolonged sitting w/ left arm supported on table top. Signs and symptoms consistent w/ ulnar nerve irritation, possible double crush injury w/ (+) Spurlings at c-spine and discomfort w/ cervical ROM. He has been educated on joint protection/activity modification, given use of Heel-ioana to decrease pressure on elbow/forearm and practiced w/ ulnar nerve glides. he will follow up for OT in two weeks to determine gains made w/ self management due to busy schedule. 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 Thank you once again for your referral.
--- NOTE | 2023-10-15 11:32 | MHC.OT.DC ---
[address] [phone] F: [phone] Occupational Therapy Discharge Note Patient Name: Jarrett Moore Provider: Dr Zander Orellana Diagnosis: Left forearm pain Date of Surgery: Date of Evaluation: 09/01/23 Date of Discharge: 10/15/23 Treatments to Date: 3 Cancellations to Date: No Shows to Date: 1 Discharge Status: Achieved Goals Independent with HEP Discharge Summary: Jarrett was referred to OT w/ persistent left forearm pain for several months, reporting pain primarily when sitting at his desk or with prolonged sitting w/ left arm supported on table top. Signs and symptoms consistent w/ ulnar nerve irritation, possible double crush injury w/ (+) Spurlings at c-spine and discomfort w/ cervical ROM. He has been educated on joint protection/activity modification, given use of Heel-ioana to decrease pressure on elbow/forearm and practiced w/ ulnar nerve glides. We have done brief course of OT and given HEP, but primary focus is self management w/ goal of daily movement and HEP w/ mindfulness of positioning w/ prolonged sitting. No further OT needed at this time. Electronically Signed By: LATISHA Green/Alethea CANALEST Reviewed/agree with student documentation: Therapist: Please Sign and return to therapist, thank you for your referral.
== END 2023-10-15 11:33 | disposition home or self-care (01) ==
LOC: HO.OT 07:30
PROVIDERS: PCP Nurse Practitioner Family; Visit Provider Internal Medicine
DX: S56.512A Strain of other extensor muscle, fascia and tendon at forearm level, left arm, initial encounter (principal)
CPT/HCPCS: 97110; 97140; 97165

== ENCOUNTER 2023-10-03 08:01 | Outpatient (AMB) | payer OTHER, SELFPAY ==
[2023-10-03 08:16] VITALS: BP 128/80; PULSE 102; TEMP 36.6; O2SAT 97; BMI 41.6
--- NOTE | 2023-10-03 08:16 | MHC.OFFWIV ---
Intake Vital Signs 10/03/23 08:16 Height 6 ft 2 in Weight 324 lb BMI 41.6 BP 128/80 Blood Pressure Location Rt brachial Position Sitting Pulse 102 H Pulse Source Pulse Oximeter Temp 97.9 F Temp Source Oral Pulse Oximetry (%) 97 Intake Visit Reasons: EST/Left leg pain (lobby) Intake Note: pt is here for c.o left leg pain since friday morning, denies swelling and redness, and denies injury Patient Tobacco Use Status: Current everyday Tobacco user Allergies No Known Allergies [No Known Allergies*] Allergy (Verified 10/03/23 08:21) Medication List - Last Reconciled 10/03/23 by Tasha Garcia NP acetaminophen 1,000 mg (2 x 500 mg) PO Q6H PRN alcohol swabs (Alcohol Prep Pads) 1 pad topical BID 30 days atorvastatin 10 mg PO BEDTIME 90 days blood sugar diagnostic (FreeStyle Lite Strips) Use to check fasting blood sugar in am and random blood sugar during the day. Dexcom G7 Pot Puncher (blood-glucose meter,continuous) tid testing NS Dexcom G7 Sensor (blood-glucose sensor) tid testing NS diclofenac sodium 75 mg PO Q OTHER DAY 90 days FreeStyle Boyd 2 [place] (flash glucose scanning reader) Tid testing NS FreeStyle Boyd 2 Sensor (flash glucose sensor) TID testing NS lancets (FreeStyle Lancets) Use to check fasting blood sugar in am and random blood sugar during the day. lisinopril 2.5 mg PO DAILY metformin 500 mg PO BID 90 days omeprazole 20 mg PO DAILY semaglutide (Ozempic) 0.25 mg (0.368 mL) subcut QWEEK sildenafil 50 mg PO DAILY PRN 10 days Do you need a note to return to daycare/school/sports/work: Yes HPI HPI Comments History of Present Illness Details 53 y/o male presents to walk in clinic with c/o left leg pain that started Friday. Denies any injuries or falls. Denies numbness or tingling. PFS Medical History Diabetes mellitus Elevated cholesterol GERD (gastroesophageal reflux disease) Heart murmur Morbid obesity PONV (postoperative nausea and vomiting) Refused pneumococcal vaccination Surgical History H/O colonoscopy H/O heart surgery History of surgery on extremity History of umbilical hernia repair (~11/27/21) Family History Father No problems noted. Father Substance use disorder Mother Substance use disorder Maternal Uncle Substance use disorder Sister Substance use disorder Social History Housing: House Alcohol intake: current Alcohol intake frequency: holidays/special occasions only Patient Tobacco Use Status: Current everyday Tobacco user Tobacco use type: Cigarette Cigarettes Per Day: 15 Years Smoked: 25 e-Cigarette/Vaping Use: Never Used Second Hand Smoke Exposure: Yes service: No Current occupational status: employed Current occupation: [employer] Current occupational exposures/hazards: No Cognitive needs: No Hearing needs: No Vision needs: No Review of Systems Const All systems reviewed & are unremarkable except as noted in HPI and below Physical Exam Vital Signs: Last Vital Signs Temp 97.9 F 10/03/23 08:16 Pulse 102 H 10/03/23 08:16 BP 128/80 10/03/23 08:16 Pulse Ox 97 10/03/23 08:16 BMI result Body Mass Index 41.6 Extrem General: Yes normal to inspection, Yes full ROM and Yes capillary refill normal Left lower extremity: normal to inspection, full ROM and knee (Normal skin tone, no swelling or tenderness) Details: normal ROM; no swelling and no unusual warmth; no cyanosis, no edema and joint enlargement noted Assessment & Plan Assessment & Plan (1) Left knee pain: Code(s): M25.562 - Pain in left knee Qualifiers: Chronicity: acute Qualified Code(s): M25.562 - Pain in left knee Plan: - RICE - Acetaminophen and Ibuprofen - Rec PT Medications: New acetaminophen 1,000 mg (2 x 500 mg) PO Q6H PRN 20 caps 0RF pain M25.562 - Pain in left knee Coding Level of Care Code Est Pt Level 2 (14199) Diagnoses Acute pain of left knee M25.562 Chronicity: acute Time Spent (min) 10
== END 2023-10-03 09:09 | disposition home or self-care (01) ==
PROVIDERS: PCP Nurse Practitioner Family; Visit Provider Nurse Practitioner Family
DX: M25.562 Pain in left knee (principal)
CPT/HCPCS: 99212

== ENCOUNTER 2023-10-04 15:31 | Emergency (ER) | payer OTHER, SELFPAY ==
--- NOTE | ~2023-10-04 | US_ITS ---
EXAMINATION: US VENOUS ULTRASOUND WITH DOPPLER LOWER EXTREMITY, LEFT CLINICAL INFORMATION: Calf and popliteal fossa pain and swelling COMPARISON: None available. TECHNIQUE: Ultrasound of the deep veins is performed from the hip to the calf with compression sonography and color and pulse Doppler assessment. Spectral analysis with color-flow imaging is performed. FINDINGS: There is normal venous compression and respiratory variation and augmented flow. The visualized common femoral vein, superficial femoral vein, profunda femoral vein, popliteal vein, and the trifurcation region shows no evidence of deep venous thrombosis. There is no significant popliteal fossa cyst. If the patient's symptoms persist, followup ultrasound in 5 days 7 days might be of value to exclude proximal propagation from a non-visualized calf vein. US/US venous duplex LE LT IMPRESSION: No DVT demonstrated in the left lower extremity.
--- NOTE | ~2023-10-04 | XR_ITS ---
EXAMINATION: XR KNEE, LEFT CLINICAL INFORMATION: Knee pain and swelling COMPARISON: Right knee 11/18/2018 TECHNIQUE: Four views of the left knee. FINDINGS: No fracture or joint effusion. Alignment is anatomic. Joint spaces are maintained. No abnormal soft tissue calcification. XR/XR knee LT 4V IMPRESSION: Normal left knee.
[2023-10-04 15:35] VITALS: BP 172/86; PULSE 75; RESP 18; TEMP 36; O2SAT 100; BMI 43.1
--- NOTE | 2023-10-04 15:36 | ED_ITS ---
HPI - General Adult General Chief complaint: Extremity Injury, Lower Stated complaint: calf and behind the knee pain left Time Seen by Provider: 10/04/23 16:00 Source: patient Mode of arrival: ambulatory Limitations: no limitations History of Present Illness HPI narrative: Patient is a 53-year-old male who presents emergency department for evaluation of pain to the left knee and calf. Symptom onset was 5 days ago and has become progressively worse. He presented to an urgent care yesterday for evaluation was advised that he had pulled a muscle. This morning he felt a popping sensation to the back of his knee while he was walking and reports swelling to the posterior knee. He does admit that the pain improved some with rest, but is severe when weight-bearing. He denies any numbness or tingling to the foot or cold sensation. Denies fevers chills rashes or lesions. Related Data Previous Rx's Medication Instructions Recorded alcohol swabs (Alcohol Prep Pads) 1 pad topical BID 30 days #100 ea 01/19/21 blood sugar diagnostic (FreeStyle #100 ea 05/03/22 Lite Strips) lancets 28 gauge (FreeStyle #100 ea 06/30/22 Lancets) diclofenac sodium 75 mg 75 mg PO Q OTHER DAY 90 days #45 01/22/23 tablet,delayed release tabs sildenafil 50 mg tablet 50 mg PO DAILY PRN sexual activity 01/22/23 10 days #10 tabs Dexcom G7 Fiberglass Luggage Molder (blood-glucose #1 ea 04/15/23 meter,continuous) Dexcom G7 Sensor (blood-glucose #1 ea 04/15/23 sensor) FreeStyle Boyd 2 [place] (flash #1 ea 04/17/23 glucose scanning reader) FreeStyle Boyd 2 Sensor (flash #1 ea 04/17/23 glucose sensor) atorvastatin 10 mg tablet 10 mg PO BEDTIME 90 days #90 tabs 04/23/23 semaglutide 0.25 mg or 0.5 mg (2 0.25 mg (0.368 mL) subcut QWEEK #3 07/01/23 mg/3 mL) subcutaneous pen injector mL (Ozempic) metformin 500 mg tablet 500 mg PO BID 90 days #180 tabs 07/05/23 lisinopril 2.5 mg tablet 2.5 mg PO DAILY #90 tabs 07/11/23 omeprazole 20 mg capsule,delayed 20 mg PO DAILY #90 caps 07/11/23 release acetaminophen 500 mg capsule 1,000 mg (2 x 500 mg) PO Q6H PRN 10/03/23 pain #20 caps Allergies Allergy/AdvReac Type Severity Reaction Status Date / Time No Known Allergies Allergy Verified 10/03/23 08:21 [No Known Allergies*] Review of Systems 2 Review of Systems: Yes all other systems are reviewed and are negative PMFSH Past Medical History Attestation statement: The following information was validated with the patient. Source: old records reviewed Onset Date is defined in the Problem List Problems that require an onset date and time if occurred within 24 hrs of arrival to the ED Aortic Dissection and Rupture; Neurologic impairment; Cardiopulmonary Arrest; Endotracheal Intubation; Insertion or Replacement of Mechanical Circulatory Assist Device Medical History Elevated cholesterol GERD (gastroesophageal reflux disease) PONV (postoperative nausea and vomiting) Morbid obesity Diabetes mellitus Refused pneumococcal vaccination Heart murmur Surgical History H/O colonoscopy History of umbilical hernia repair (~11/27/21) History of surgery on extremity H/O heart surgery Family History Family History Father No problems noted. Father Substance use disorder Mother Substance use disorder Maternal Uncle Substance use disorder Sister Substance use disorder Social History Social History Housing: House Alcohol intake: current Alcohol intake frequency: holidays/special occasions only Patient Tobacco Use Status: Current everyday Tobacco user Tobacco use type: Cigarette Cigarettes Per Day: 15 Years Smoked: 25 e-Cigarette/Vaping Use: Never Used Second Hand Smoke Exposure: Yes Advance Directives: No Advance Directives Information Provided: No service: No Current occupational status: employed Current occupation: [employer] Current occupational exposures/hazards: No Cognitive needs: No Hearing needs: No Vision needs: No Physical Exam ED Vital Signs: Vital Signs - 24 hr 10/04/23 15:35 10/04/23 16:47 Temperature 96.8 F 98 F Pulse Rate 75 78 Respiratory Rate 18 20 Blood Pressure 172/86 H 131/84 Pulse Oximetry 100 98 Oxygen Delivery Method Room Air BMI result Body Mass Index 43.1 Appearance: Alert.?Oriented to person, place and time. No acute distress.?Normal affect. Eyes: Pupils equal, round and reactive to light.? ENT: Pharynx normal.?? Neck: Normal inspection.? Neck supple.?? CVS: Heart sounds normal. Normal heart rate and rhythm.? Pulses normal.?? Respiratory: No respiratory distress.? Lung sounds clear to auscultation bilaterally?? Abdomen: Soft and non-tender. Normoactive bowel sounds. No pulsatile mass.?? Skin: Skin warm and dry.? Normal skin color.? Normal skin turgor.?? Extremities: No lower extremity edema.? 2+ DP/PT pulse bilaterally. No overt effusion. No erythema. No warmth. No laxity upon examination. Neuro: Moves all extremities spontaneously. Sensation intact bilaterally. No focal neuro deficits. Ambulates with Antalgic gait. Course Course Course Narrative: This is a rapid medical exam: Additional HPI, ROS, PE not included below will be deferred to primary provider. Patient is a 53-year-old male with history of DM, GERD presenting to the ED with complaint of left calf and posterior knee pain since Friday. Progressively worsening. Went to urgent care yesterday and was told he had a muscle strain. This morning felt a double pop sensation as he was leaving for work. Reports swelling behind the knee. Arrives with knee brace in place. Plan: labs, U/S Medical Decision Making Medical Decision Making MDM Narrative: Patient is a 53 old male who presents emergency department for evaluation of left knee pain as per HPI, overall atraumatic in nature with progressive worsening until today when a popping sensation was felt while walking. Pain does radiate to the calf. No personal history of VTE, he has diffuse tenderness to the knee and calf upon palpation. History and physical examination concerning for avulsion fracture, ligamentous injury, meniscus injury, linda cyst. Not consistent with septic arthritis. Labs obtained prior to my assumption of care reveals a normal CBC, overall unremarkable CMP aside from mildly elevated glucose at 122. Venous duplex ultrasound of the left lower extremity reveals No evidence of DVT or popliteal fossa cyst, XR of the left knee reveals no acute fracture. will place in the immobilizer provide crutches and recommend outpatient follow-up with orthopedics for further evaluation. PT INR was also obtained initially prior to my assumption of care, results indicated PT >320, INR >26 and clinically this seems highly abnormal, no medications or past medical history that would indicate any etiology for this. Therefore a repeat coag study was obtained which Was normal. Differential Diagnosis Differential Diagnoses: The differential diagnosis associated with the presentation includes (See narrative above) Admission/Observation Consideration of admission/observation: Escalation of care including admission/observation considered (See narrative above) Lab Data MDM Lab Attestation statement: I reviewed the patient's lab results. ( see narrative above) 10/04/23 15:50 10/04/23 15:50 Labs: Lab Results 10/04/23 10/04/23 Range/Units 15:50 17:01 WBC 9.6 (4.8-10.8) X10*3/uL RBC 5.55 (4.60-5.80) X10*6/uL Hgb 16.8 (14.0-18.0) g/dl Hct 49.2 (42.0-52.0) % MCV 88.6 (80.0-98.0) fL MCH 30.3 (27.0-33.0) pg MCHC 34.1 (31.0-36.0) g/dl RDW 12.8 (11.0-16.0) % Plt Count 173 (160-400) X10*3/uL MPV 10.4 (9.4-12.4) fL Immature Gran % (Auto) 0.3 (0.0-0.4) % Neut % (Auto) 61.9 (45-73) % Lymph % (Auto) 28.2 (20-40) % Rolette % (Auto) 7.7 (2-11) % Eos % (Auto) 1.3 (0-4) % Baso % (Auto) 0.6 (0-2) % Lymph # (Auto) 2.7 (1.2-4.9) X10*3/uL [place] # (Auto) 0.7 (0.1-1.2) X10*3/uL Eos # (Auto) 0.1 (0.0-0.4) X10*3/uL Baso # (Auto) 0.1 (0.0-0.2) X10*3/uL Abs Immat Gran (auto) 0.03 (0.00-0.03) X10*3/uL Absolute Neuts (auto) 5.9 (2.0-8.3) x10*3/uL Absolute Nucleated RBC 0.000 (0.0-0.012) X10*3/uL Nucleated RBC % (auto) 0.0 (0.0-0.2) /100WBC PT > 320.0 H 12.1 D (11.1-13.3) SEC INR > 26.0 H* 1.0 D (0.9-1.1) APTT 33.5 (26.0-36.4) SEC Sodium 138 (135-145) mmol/L Potassium 4.2 (3.3-5.1) mmol/L Chloride 104 (96-108) mmol/L Carbon Dioxide 25 (22-29) mmol/L Anion Gap 13 (12-20) BUN 15 (9-16) mg/dL Creatinine 0.85 (0.5-1.4) mg/dL Estim Creat Clear Calc 154.9 Estimated GFR > 60 Random Glucose 122 H (60-115) mg/dL Calcium 9.7 (8.4-10.2) mg/dL Total Bilirubin 0.5 (0.0-1.0) mg/dL AST 22 (5-37) U/L ALT 38 (0-40) U/L Alkaline Phosphatase 93 (39-117) U/L Total Protein 7.8 (6.5-8.0) g/dL Albumin 4.2 (3.5-5.0) g/dL Independent Interpretation I performed an independent interpretation of an: Plain X-Ray (I personally interpreted XR imaging and agree with radiologist impression.) and Ultrasound Radiology Impression Discussion of test interpretation with radiology: I have reviewed the radiologist's reading. Radiologist Impression: US/US venous duplex LE LT IMPRESSION: No DVT demonstrated in the left lower extremity. XR/XR knee LT 4V IMPRESSION: Normal left knee. External Record Review External record reviewed: Outpatient record Tests considered The following testing was considered but not selected: Inflammatory markers, less likely septic arthritis, deferred Prescription Management I considered prescription management with: Pain Medication ( Acetaminophen/ibuprofen) Discharge Plan Discharge Clinical Impression: Acute knee pain Qualifiers: Laterality: left Qualified Code(s): M25.562 - Pain in left knee Patient Disposition: Home, Self-Care Instructions: Knee Pain (ED) Additional Instructions: x-ray today does not show any evidence of a fracture dislocation. Ultrasound does not show any evidence of a blood clot or fluid collection/cyst behind the knee. You have been placed in knee immobilizer, this should remain in place when you are ambulating. Use crutches to bear weight on your leg only as tolerated. Contact orthopedic office on Friday to arrange for a follow-up visit. You may also contact your primary care provider to arrange for further follow-up You can take ibuprofen 200 mg, 3 tablets (600mg) every 6-8 hours as needed for pain, in addition to Tylenol 500 mg, 2 tablets (1,000mg) every 4-6 hours as needed for pain, but not to exceed 3 doses daily (3,000mg).? Prescriptions: No Action alcohol swabs [Alcohol Prep Pads] Pads, Medicated 1 pad topical BID 30 Days Qty: 100 1RF Rx Instructions: Use to check fasting blood sugar in am and random blood sugar during the day. (DME) FreeStyle Lite Strips Strip See Rx Instructions .ROUTE .MEDSUPPLY Qty: 100 1RF Rx Instructions: Use to check fasting blood sugar in am and random blood sugar during the day. (DME) lancets [FreeStyle Lancets] 28 gauge misc See Rx Instructions .ROUTE .MEDSUPPLY Qty: 100 1RF Rx Instructions: Use to check fasting blood sugar in am and random blood sugar during the day. sildenafil 50 mg tablet 50 mg PO DAILY PRN (Reason: sexual activity) 10 Days Qty: 10 5RF Rx Instructions: administer 30 minutes to 4 hours before activity diclofenac sodium 75 mg tablet,delayed release (DR/EC) 75 mg PO Q OTHER DAY 90 Days Qty: 45 4RF (DME) Dexcom G7 Fiberglass Luggage Molder Misc See Rx Instructions .Route Qty: 1 0RF Rx Instructions: tid testing (DME) Dexcom G7 Sensor Device See Rx Instructions .Route Qty: 1 0RF Rx Instructions: tid testing (DME) FreeStyle Boyd 2 [place] Misc See Rx Instructions .Route Qty: 1 0RF Rx Instructions: Tid testing (DME) FreeStyle Boyd 2 Sensor Kit See Rx Instructions .Route Qty: 1 0RF Rx Instructions: TID testing atorvastatin 10 mg tablet 10 mg PO BEDTIME 90 Days Qty: 90 1RF Ozempic 0.25 mg or 0.5 mg (2 mg/3 mL) pen injector 0.25 mg subcut QWEEK Qty: 3 2RF Rx Instructions: for 4 weeks metformin 500 mg tablet 500 mg PO BID 90 Days Qty: 180 3RF lisinopril 2.5 mg tablet 2.5 mg PO DAILY Qty: 90 1RF omeprazole 20 mg capsule,delayed release(DR/EC) 20 mg PO DAILY Qty: 90 1RF acetaminophen 500 mg capsule 1,000 mg PO Q6H PRN (Reason: pain) Qty: 20 0RF Referrals: Griselda Loving PA-C [Phys[facility] Risk And Assurance Manager] -
[2023-10-04 15:54] LABS: MANUAL DIFF FLAG NO
[2023-10-04 16:01] LABS: Basophils Absolute Auto 0.1 X10*3/uL (0.0-0.2); Basophils Percent Auto 0.6 % (0-2); Eosinophils Absolute Auto 0.1 X10*3/uL (0.0-0.4); Eosinophils Percent Auto 1.3 % (0-4); Hematocrit 49.2 % (42.0-52.0); Hemoglobin 16.8 g/dl (14.0-18.0); Imm Gran Abs Auto 0.03 X10*3/uL (0.00-0.03); Imm Gran Pct Auto 0.3 % (0.0-0.4); Lymphocytes Absolute Auto 2.7 X10*3/uL (1.2-4.9); Lymphocytes Percent Auto 28.2 % (20-40); Mean Corpuscular HGB Conc 34.1 g/dl (31.0-36.0); Mean Corpuscular Hemoglobin 30.3 pg (27.0-33.0); Mean Corpuscular Volume 88.6 fL (80.0-98.0); Mean Platelet Volume 10.4 fL (9.4-12.4); Monocytes Absolute Auto 0.7 X10*3/uL (0.1-1.2); Monocytes Percent Auto 7.7 % (2-11); Neutrophils Absolute Auto 5.9 x10*3/uL (2.0-8.3); Neutrophils Percent Auto 61.9 % (45-73); Platelet Count 173 X10*3/uL (160-400); Red Blood Count 5.55 X10*6/uL (4.60-5.80); Red Cell Distribution Width 12.8 % (11.0-16.0); White Blood Count 9.6 X10*3/uL (4.8-10.8)
[2023-10-04 16:09] LABS: Alanine Aminotransferase 38 U/L (0-40); Albumin Level 4.2 g/dL (3.5-5.0); Alkaline Phosphatase 93 U/L (39-117); Anion Gap 13 (12-20); Aspartate Amino Transferase 22 U/L (5-37); Bilirubin Total 0.5 mg/dL (0.0-1.0); Blood Urea Nitrogen 15 mg/dL (9-16); Calcium 9.7 mg/dL (8.4-10.2); Carbon Dioxide 25 mmol/L (22-29); Chloride 104 mmol/L (96-108); Creatinine Clr Calc Pharmacy 154.9; Estimated Glomerular Filt Rate > 60; Glucose Random 122 mg/dL (60-115); Potassium 4.2 mmol/L (3.3-5.1); Sodium 138 mmol/L (135-145); Total Protein 7.8 g/dL (6.5-8.0)
[2023-10-04 16:36] LABS: Prothrombin Time > 320.0 SEC (11.1-13.3)
[2023-10-04 16:37] LABS: INTERNATIONAL NORM RATIO > 26.0 (0.9-1.1)
[2023-10-04 16:47] VITALS: BP 131/84; PULSE 78; RESP 20; TEMP 36.6; O2SAT 98
[2023-10-04 17:20] LABS: Prothrombin Time 12.1 SEC (11.1-13.3)
[2023-10-04 17:23] LABS: Partial Thromboplastin Time 33.5 SEC (26.0-36.4)
== END 2023-10-04 18:09 | disposition home or self-care (01) ==
PROVIDERS: Nurse Practitioner Family; Registered Nurse Emergency; Emergency Provider Emergency Medicine Emergency Medical Services; PCP Nurse Practitioner Family
DX: M25.562 Pain in left knee (principal); E78.5 Hyperlipidemia, unspecified; E11.9 Type 2 diabetes mellitus without complications; F17.210 Nicotine dependence, cigarettes, uncomplicated; E66.9 Obesity, unspecified; Z68.41 Body mass index [BMI] 40.0-44.9, adult
CPT/HCPCS: 36415; 73564; 80053; 85025; 85610; 85730; 93971; 99282; 99284

== ENCOUNTER 2023-10-21 07:31 | Outpatient (AMB) | payer OTHER, SELFPAY ==
--- NOTE | 2023-10-21 07:37 | MHC.PC.OV ---
Vital Signs 10/21/23 07:39 Height 6 ft 2 in Weight 335 lb BMI 43.0 BP 100/68 Blood Pressure Location Rt brachial Position Sitting Pulse 78 Pulse Source Pulse Oximeter Pulse Oximetry (%) 95 Oxygen Delivery Method Room Air Intake Visit Reasons: PE Allergies No Known Allergies [No Known Allergies*] Allergy (Verified 10/21/23 07:39) Medication List - Last Reconciled 10/21/23 by NORMA Reddy acetaminophen 1,000 mg (2 x 500 mg) PO Q6H PRN alcohol swabs (Alcohol Prep Pads) 1 pad topical BID 30 days atorvastatin 10 mg PO BEDTIME 90 days blood sugar diagnostic (FreeStyle Lite Strips) Use to check fasting blood sugar in am and random blood sugar during the day. diclofenac sodium 75 mg PO Q OTHER DAY 90 days FreeStyle Boyd 2 [place] (flash glucose scanning reader) Tid testing NS FreeStyle Boyd 2 Sensor (flash glucose sensor) TID testing NS lancets (FreeStyle Lancets) Use to check fasting blood sugar in am and random blood sugar during the day. lisinopril 2.5 mg PO DAILY metformin 500 mg PO ONCE omeprazole 20 mg PO DAILY semaglutide (Ozempic) 0.25 mg (0.368 mL) subcut QWEEK sildenafil 50 mg PO DAILY PRN 10 days Tobacco use date assessed: 10/21/23 Dental Screening Dental Screen Date: 10/21/23 Did you have a dental visit in the last 12 months?: Yes Did you have a dental problem in the last 6 months where you did not have access to dental care?: No Was dental information given to patient?: Patient has dentist HPI PE HPI Details Pt is here for a PE. Will order labs. Colon screen is up to date. Due for PSA, will order. Denies dribbling with urination, weak stream, and frequent nocturia. Pt is a diabetic, on an NICHOLE and a statin. A1C in office today is 5.8. Due for microalbumin, will order. Denies polyuria, polydipsia, and neuropathy. Pt denies any signs and symptoms of hypoglycemia and does know how to correct it. Pt reports that his blood sugar has been ranging from 90s-130s. Pt has been a PPD smoker since age 17. Will refer for low-dose CT. [facility] Medical History Elevated cholesterol GERD (gastroesophageal reflux disease) PONV (postoperative nausea and vomiting) Morbid obesity Diabetes mellitus Refused pneumococcal vaccination Heart murmur Surgical History H/O colonoscopy History of umbilical hernia repair (~11/27/21) History of surgery on extremity H/O heart surgery Family History Father No problems noted. Father Substance use disorder Mother Substance use disorder Maternal Uncle Substance use disorder Sister Substance use disorder Social History Housing: House Alcohol intake: current Alcohol intake frequency: holidays/special occasions only Patient Tobacco Use Status: Current everyday Tobacco user Tobacco use type: Cigarette Cigarettes Per Day: 15 Years Smoked: 25 e-Cigarette/Vaping Use: Never Used Second Hand Smoke Exposure: Yes service: No Current occupational status: employed Current occupation: [employer] Current occupational exposures/hazards: No Cognitive needs: No Hearing needs: No Vision needs: Yes Questionnaire Thrive Questionnaire Date Thrive assessed: 10/14/22 I am a: Patient What is your living situation today?: I have a steady place to live Within the past 12 months, did the food you bought not last and you didn't have the money to get more?: Never true Within the past 12 months, did you worry whether your food would run out before you got money to buy more?: Never true THRIVE Score: 0 AUDIT C Alcohol Use Questionnaire (AUDIT-C) 1. How often do you have a drink containing alcohol?: Monthly or less 2. How many drinks containing alcohol do you have on a typical day when you are drinking?: 3 or 4 3. How often do you have six or more drinks on one occasion?: Never Total Score: 2 IRENE-7 AMB Questionnaire IRENE-7 Date IRENE - 7 assessed: 10/14/22 Feeling nervous, anxious, or on edge: 0 = Not at all Not being able to stop or control worryin = Not at all Worrying too much about different things: 0 = Not at all Trouble relaxin = Not at all Being so restless that it is hard to sit still: 0 = Not at all Becoming easily annoyed or irritable: 1 = Several days Feeling afraid as if something awful might happen: 1 = Several days Total IRENE-7 score (0-4 normal; 5-9 mild; 10-14 moderate; 15-21 severe): 2 Source: Developed by Drs. Je Gonzalez, Saray Villafana, Elian Hatfield and colleagues, with an educational yamileth from [employer]. Review of Systems Const Denies chills and Denies fever(s) Eyes Denies blurry vision ENT Denies vertigo, Denies dizziness and Denies sore throat Card Denies chest pain at rest, Denies chest pain with activity, Denies diaphoresis, Denies dyspnea and Denies dyspnea on exertion Resp Denies cough, Denies dyspnea, Denies dyspnea on exertion and Denies wheezing GI Denies abdominal pain, Denies melena, Denies hematochezia, Denies constipation, Denies diarrhea and Denies loose stools Denies hematuria Musc Denies numbness and Denies tingling Skin/Breast Denies lesions Neuro Denies vertigo, Denies dizziness, Denies numbness and Denies tingling Psych Denies anxiety, Denies depression, Denies homicidal ideation, Denies suicidal ideation and Denies other (substance abuse) Aller/Immun Denies wheezing Physical exam (Primary Care) Vital Signs: Last Vital Signs Pulse 78 10/21/23 07:39 BP 100/68 10/21/23 07:39 Pulse Ox 95 10/21/23 07:39 Oxygen Delivery Method Room Air 10/21/23 07:39 BMI result Body Mass Index 43.0 Tobacco/Smoking Status: Tobacco use Status Tobacco use date assessed 10/21/23 10/21/23 07:43 Patient Tobacco Use Status Current everyday Tobacco 10/21/23 07:38 Tobacco use type Cigarette 10/21/23 07:38 e-Cigarette/Vaping Use Never Used 10/21/23 07:38 Thrive Assessment: Date of Thrive Assessment Date Thrive assessed 10/14/22 10/21/23 07:38 Const General: cooperative Nutritional Appearance: obese morbidly obese Orientation/consciousness: patient oriented x3 HENMT Head: Yes normal to inspection, Yes normocephalic and Yes atraumatic Ears: TM's normal bilaterally Eyes General: appearance normal, both eyes and all related structures Alignment and Position: alignment normal and position normal Neck Neck: Yes normal visual inspection and Yes no lymphadenopathy Thyroid: Thyroid normal Resp Effort & Inspection: normal respiratory effort Auscultation: clear to auscultation bilaterally Cardio Rate: regular rate Rhythm: regular rhythm Heart sounds: S1 normal heart sound present, S2 normal heart sound present and no murmurs GI Palpation (GI): Soft to palpation and nontender Auscultation: normal bowel sounds Male General Exam: Yes normal external exam Penis: normal penis Scrotum: scrotum normal, testes descended bilaterally and no inguinal hernias Testes: no testicular mass Skin Rashes: no rashes Neuro General: patient oriented x3, moves all extremities, no focal motor deficits and deep tendon reflexes 2+ bilaterally Romberg Test: Negative Extrem Other: bilat feet: + sensation with use of monofilament Psych Appearance: grossly normal Mental Status: mental status grossly normal Speech and movement: Normal speech and movement present Affect: normal affect Attitude: cooperative Thought process: Normal thought process present Thought content: Normal thought content present Insight: Good insight present (Psych) Judgement: Good judgement present (Psych) Results AMB Hemoglobin A1c AMB Hemoglobin A1c 5.8 % Last Edit by Kimber Quesada CMA on 10/21/23 07:57 Assessment and Plan Assessment & Plan (1) Smoker: Code(s): F17.200 - Nicotine dependence, unspecified, uncomplicated Plan: Referred to thoracic (2) Physical exam: Code(s): Z00.00 - Encounter for general adult medical examination without abnormal findings (3) Diabetes mellitus: Code(s): E11.9 - Type 2 diabetes mellitus without complications Plan The patient agreed to the use of a biomedical engineering internship for this encounter. Scribed for NORMA Ibrahim by Mary Rivera biomedical engineering internship, on 10/21/2023 at 07:45 EST. Orders: Orders Comprehensive [place]. Panel Fast Today Z00.00 - Encounter for general adult medical examination without abnormal findings TSH reflex Free T4 Today Z00.00 - Encounter for general adult medical examination without abnormal findings UA CC w/rflx Micro + Cult Today Z00.00 - Encounter for general adult medical examination without abnormal findings Lipid Panel Today Z00.00 - Encounter for general adult medical examination without abnormal findings Microalbumin, Random (w Creat) Today E11.9 - Type 2 diabetes mellitus without complications Complete Blood Count Auto Diff Today Z00.00 - Encounter for general adult medical examination without abnormal findings Prostate Specific Antigen Scr Today Z12.5 - Encounter for screening for malignant neoplasm of prostate AMB Hemoglobin A1c Today E11.9 - Type 2 diabetes mellitus without complications Referrals Thoracic Surgery Referral F17.200 - Nicotine dependence, unspecified, uncomplicated Medications: Changed From metformin 500 mg PO BID 90 days 180 tabs 3RF E11.9 - Type 2 diabetes mellitus without complications To metformin 500 mg PO ONCE E11.9 - Type 2 diabetes mellitus without complications Coding Level of Care Code Est Pt Prev Care 40-64y(29675) Diagnoses Smoker F17.200 Physical exam Z00.00 Diabetes mellitus E11.9
[2023-10-21 07:39] VITALS: BP 100/68; PULSE 78; O2SAT 95; BMI 43.0
== END 2023-10-21 09:58 | disposition home or self-care (01) ==
PROVIDERS: Visit Provider Nurse Practitioner Family
DX: F17.200 Nicotine dependence, unspecified, uncomplicated (principal); Z00.00 Encounter for general adult medical examination without abnormal findings; E11.9 Type 2 diabetes mellitus without complications
CPT/HCPCS: 83036; 99396

== ENCOUNTER 2023-10-21 10:11 | Outpatient (REF) | payer OTHER, SELFPAY ==
--- NOTE | ~2023-10-21 | XR_ITS ---
EXAMINATION: XR AP STANDING BILATERAL KNEES XR LEFT KNEE, AXIAL VIEW CLINICAL INFORMATION: Pain. COMPARISON: Prior radiographs, most recently 10/04/2023. TECHNIQUE: An AP bilateral standing view of the knees was obtained. An axial view of the left knee is obtained. FINDINGS: No fracture or joint effusion. Alignment is anatomic. Joint spaces are maintained. No abnormal soft tissue calcification. XR/XR knee LT 1V IMPRESSION: Normal knees.
--- NOTE | ~2023-10-21 | XR_ITS ---
EXAMINATION: XR AP STANDING BILATERAL KNEES XR LEFT KNEE, AXIAL VIEW CLINICAL INFORMATION: Pain. COMPARISON: Prior radiographs, most recently 10/04/2023. TECHNIQUE: An AP bilateral standing view of the knees was obtained. An axial view of the left knee is obtained. FINDINGS: No fracture or joint effusion. Alignment is anatomic. Joint spaces are maintained. No abnormal soft tissue calcification. XR/XR knee standing BI IMPRESSION: Normal knees.
== END 2023-10-21 10:12 | disposition home or self-care (01) ==
LOC: HO.HOSX 10:11
PROVIDERS: Visit Provider Physician Assistant
DX: M79.605 Pain in left leg (principal)
CPT/HCPCS: 73560; 73565; 99202

== ENCOUNTER 2023-10-21 13:52 | Outpatient (AMB) | payer OTHER, SELFPAY ==
--- NOTE | 2023-10-21 14:05 | MHC.OFFVIS ---
Intake Intake Visit Reasons: HORSER UP-Left knee/calf pain Allergies No Known Allergies [No Known Allergies*] Allergy (Verified 10/21/23 07:39) HPI HORSER UP-Left knee/calf pain HPI Details 53-year-old male who presents in the office today, as a new patient, for an evaluation of left knee and calf pain. The patient presented to the Walk-In clinic on 10/03/2023 where he was told he had a pulled muscle. He then presented to the ED on 10/04/2023 status post 5 days of increasing left knee pain and feeling a pop that morning. X-rays were obtained. He was placed in a knee immobilizer and instructed to wear it while ambulating. The patient states he does not recall an injury. He states 3 weeks ago on Friday he began to have pain that increased through out the week. He states he presented to the ED due to being unable to walk. He states the pain will radiated down the leg. He denies numbness or tingling. He reports stiffness and pain when he wakes up in the morning. He states this will get some relief but as the day goes on he has increased pain. 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 He states the pain has been present since 09/27/2023. He states he has to side step when using the stairs at his house. He states he sits at a desk and sits on a high stool. He will have to grab the seat and roll into it. This caused him severe pain. He states he has tried ice, heat, and ibuprofen with no relief. He states the only way he gets relief is to not be up on the left lower extremity. He states his will massage the leg and states she feels a knot. He denies any complications with the lower back. [facility] Medical History Elevated cholesterol GERD (gastroesophageal reflux disease) PONV (postoperative nausea and vomiting) Morbid obesity Diabetes mellitus Refused pneumococcal vaccination Heart murmur Surgical History H/O colonoscopy History of umbilical hernia repair (~11/27/21) History of surgery on extremity H/O heart surgery Family History Father No problems noted. Father Substance use disorder Mother Substance use disorder Maternal Uncle Substance use disorder Sister Substance use disorder Social History Housing: House Alcohol intake: current Alcohol intake frequency: holidays/special occasions only Patient Tobacco Use Status: Current everyday Tobacco user Tobacco use type: Cigarette Cigarettes Per Day: 15 Years Smoked: 25 e-Cigarette/Vaping Use: Never Used Second Hand Smoke Exposure: Yes service: No Current occupational status: employed Current occupation: [employer] Current occupational exposures/hazards: No Cognitive needs: No Hearing needs: No Vision needs: Yes Review of Systems Const All systems reviewed & are unremarkable except as noted in HPI and below Physical Exam Const General: cooperative and no acute distress Orientation/consciousness: patient oriented x3 Resp Effort & Inspection: normal respiratory effort and able to speak in complete sentences Cardio Peripheral pulses: Peripheral pulses 2+ throughout Skin General skin exam: no rashes or lesions noted Neuro General: patient oriented x3 Extrem Other: Left knee: Normal to inspection. No ecchymosis, erythema, or joint effusion. No tenderness to palpation to the medial or lateral joint lines. Full knee extension and flexion. Negative Ivy's. Negative anterior drawer. Negative straight leg raise. NVI. Patient reports pain behind the left knee. Pain radiates from the knee to his heel. No palpable linda?s cyst on exam. Denies numbness or tingling. Denies lower back pain. Results AMB Hemoglobin A1c AMB Hemoglobin A1c 5.8 % Last Edit by Kimber Quesada CMA on 10/21/23 07:57 Assessment & Plan Assessment & Plan (1) Acute pain of left lower extremity: Code(s): M79.605 - Pain in left leg Plan Mr. Moore is a 53-year-old male who presents in the office today, as a new patient, for an evaluation of left knee and calf pain. The patient presented to the Walk-In clinic on 10/03/2023 where he was told he had a pulled muscle. He then presented to the ED on 10/04/2023 status post 5 days of increasing left knee pain and feeling a pop that morning. X-rays were obtained. He was placed in a knee immobilizer and instructed to wear it while ambulating. The patient states he does not recall an injury. He states 3 weeks ago on Friday he began to have pain that increased through out the week. He states he presented to the ED due to being unable to walk. He states the pain will radiated down the leg. He denies numbness or tingling. He reports stiffness and pain when he wakes up in the morning. He states this will get some relief but as the day goes on he has increased pain. He states he has to side step when using the stairs at his house. He states he sits at a desk and sits on a high stool. He will have to grab the seat and roll into it. This caused him severe pain. He states he has tried ice, heat, and ibuprofen with no relief. He states the only way he gets relief is to not be up on the left lower extremity.He states his will massage the leg and this does help sometimes. He denies any complications with the lower back. The patient will be referred to Physiatry for further evaluation and treatment of possible neurological involvement. Follow up with Orthopedics will be PRN, or sooner if needed. X-rays of the left knee which were obtained while in the office today and were reviewed by me, Amy Ho PA-C, revealed no acute fracture or dislocation. X-rays of the left knee, obtained on 10/04/2023, revealed no acute fractures or dislocation. Orders: Orders XR knee standing BI Today M25.569 - Pain in unspecified knee XR knee LT 1V Today M25.569 - Pain in unspecified knee Patient Instructions: Scribed by Felicitas West senior medical technologist, for Amy Ho PA-C on 10/21/2023 at 1:58 pm, EST. Quality Reporting (2019) Adult ([facility] 138/11/06/68) Smoking risk assessment performed?: Yes Patient Tobacco Use Status: Current everyday Tobacco user Coding Level of Care Code New Pt Level 3 (00146) Diagnoses Acute pain of left lower extremity M79.605
== END 2023-10-21 15:20 | disposition home or self-care (01) ==
PROVIDERS: PCP Nurse Practitioner Family; Visit Provider Physician Assistant
DX: M79.605 Pain in left leg (principal)
CPT/HCPCS: 99203

== ENCOUNTER 2023-11-26 08:07 | Outpatient (AMB) | payer OTHER, SELFPAY ==
--- NOTE | 2023-11-26 08:11 | MHC.OFFVIS ---
Intake Vital Signs 11/26/23 08:12 11/26/23 08:16 Height 6 ft 2 in 6 ft 2 in Weight 335 lb 335 lb BMI 43.0 43.0 Intake Visit Reasons: OV - Left Leg Pain - Per Intake Note: Jarrett is a 53-year-old male who presents today for an evaluation of left knee and calf pain. The patient presented to the Walk-In clinic on 10/03/2023 where he was told he had a pulled muscle. He then presented to the ED on 10/04/2023 after 5 days of increasing left knee pain. He was placed in a knee immobilizer and instructed to wear it while ambulating. He states the pain radiates down the leg, but denies numbness or tingling. He reports stiffness and pain when he wakes up in the morning, Stiffness improves through the day but pain increases with activity. He has to side step when using the stairs at his house. He has tried ice, heat, and ibuprofen with no relief. He states the only way he gets relief is to not be up on the left lower extremity .He states his will massage the leg and this does help sometimes. He denies any complications with the lower back. He was last seen with Amy who referred him to physiatry [employer] Required: No Information Interpreted: non-clinical & clinical Accompanied by: Self / Same As Patient Allergies No Known Allergies [No Known Allergies*] Allergy (Verified 11/26/23 08:19) Medication List - Last Reconciled 11/26/23 by Miriam Mathis MD acetaminophen 1,000 mg (2 x 500 mg) PO Q6H PRN alcohol swabs (Alcohol Prep Pads) 1 pad topical BID 30 days atorvastatin 10 mg PO BEDTIME 90 days blood sugar diagnostic (FreeStyle Lite Strips) Use to check fasting blood sugar in am and random blood sugar during the day. diclofenac sodium 75 mg PO Q OTHER DAY 90 days FreeStyle Boyd 2 Coy (flash glucose scanning reader) Tid testing NS FreeStyle Boyd 2 Sensor (flash glucose sensor) TID testing NS lancets (FreeStyle Lancets) Use to check fasting blood sugar in am and random blood sugar during the day. lisinopril 2.5 mg PO DAILY metformin 500 mg PO ONCE omeprazole 20 mg PO DAILY Ozempic (semaglutide) 0.5 mg (0.736 mL) subcut QWEEK NS sildenafil 50 mg PO DAILY PRN 10 days HPI HPI Comments History of Present Illness Details Seen initially by Ortho for left knee and calf pain. The patient presented to the Walk-In clinic on 10/03/2023 where he was told he had a pulled muscle. He then presented to the ED on 10/04/2023 status post 5 days of increasing left knee pain and feeling a pop that morning. X-rays were obtained. He was placed in a knee immobilizer and instructed to wear it while ambulating. The patient stated he does not recall an injury. He stated 3 weeks prior he began to have pain that increased through out the week. He stated he presented to the ED due to being unable to walk. He stated the pain radiated down the leg. He denied numbness or tingling. He reported stiffness and pain when he wakes up in the morning. He stated this get some relief but as the day goes on he has increased pain. 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 He stated the pain has been present since 09/27/2023. History of DM. No history of numbness. Patient says it gradually worsened since September, no specific inciting injury or change in his routine. He did sit down a low stool with that left leg extended, while sanding the wall. Denies swelling or redness. Daily but some days worse than others, worst when prolonged standing. Standing worse than walking. Does not hurt with sitting. No numbness. 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 [facility] Medical History Elevated cholesterol GERD (gastroesophageal reflux disease) PONV (postoperative nausea and vomiting) Morbid obesity Diabetes mellitus Refused pneumococcal vaccination Heart murmur Surgical History H/O colonoscopy History of umbilical hernia repair (~11/27/21) History of surgery on extremity H/O heart surgery Family History Father No problems noted. Father Substance use disorder Mother Substance use disorder Maternal Uncle Substance use disorder Sister Substance use disorder Social History Housing: House Alcohol intake: current Alcohol intake frequency: holidays/special occasions only Patient Tobacco Use Status: Current everyday Tobacco user Tobacco use type: Cigarette Cigarettes Per Day: 15 Years Smoked: 25 e-Cigarette/Vaping Use: Never Used Second Hand Smoke Exposure: Yes service: No Current occupational status: employed Current occupation: [employer] Current occupational exposures/hazards: No Cognitive needs: No Hearing needs: No Vision needs: Yes Review of Systems Const All systems reviewed & are unremarkable except as noted in HPI and below Physical Exam Vital Signs: BMI result Body Mass Index 43.0 Constitutional: Patient appears to be in no acute distress, well nourished and well developed. MSK: No specific abnormalities found on inspection of the spine and all extremities. Lumbar ROM was full. Bilateral hip, knee and ankle ROM WNL. No ligamentous laxity or crepitant. No increased effusion. No joint line tenderness. No specific tenderness over hamstrings, calf muscles, Achillis. No signs of muscle tear or inflammation. No Olguin's cyst seen. No calf tenderness or redness. Strength is 5/5 in all muscle groups tested. No increased tone noted. Neurological: Neurologic examination of the upper and lower extremities was nonfocal with intact sensation, muscle stretch reflexes and without focal motor deficits . Nation?s negative bilaterally. Babinski was down going bilaterally. Clonus was negative. Gait is non-antalgic without loss of balance. Able to stand on toes or heels. Results Reviewed Results Reviewed: Ordering Physician: Amy Ho PA-C Date of Service: 10/21/23 Procedure(s): XR knee LT 1V Accession Number(s): [id number] cc: Amy Ho PA-C~ EXAMINATION: XR AP STANDING BILATERAL KNEES XR LEFT KNEE, AXIAL VIEW CLINICAL INFORMATION: Pain. COMPARISON: Prior radiographs, most recently 10/04/2023. TECHNIQUE: An AP bilateral standing view of the knees was obtained. An axial view of the left knee is obtained. FINDINGS: No fracture or joint effusion. Alignment is anatomic. Joint spaces are maintained. No abnormal soft tissue calcification. XR/XR knee LT 1V IMPRESSION: Normal knees. Ordering Physician: Yue Payton NP Date of Service: 10/04/23 Procedure(s): US venous duplex LE LT Accession Number(s): [id number] cc: [employer] [facility]-; Yue Payton NP~ EXAMINATION: US VENOUS ULTRASOUND WITH DOPPLER LOWER EXTREMITY, LEFT CLINICAL INFORMATION: Calf and popliteal fossa pain and swelling COMPARISON: None available. TECHNIQUE: Ultrasound of the deep veins is performed from the hip to the calf with compression sonography and color and pulse Doppler assessment. Spectral analysis with color-flow imaging is performed. FINDINGS: There is normal venous compression and respiratory variation and augmented flow. The visualized common femoral vein, superficial femoral vein, profunda femoral vein, popliteal vein, and the trifurcation region shows no evidence of deep venous thrombosis. There is no significant popliteal fossa cyst. If the patient's symptoms persist, followup ultrasound in 5 days 7 days might be of value to exclude proximal propagation from a non-visualized calf vein. US/US venous duplex LE LT IMPRESSION: No DVT demonstrated in the left lower extremity. I reviewed records from the following: Ortho Assessment & Plan Assessment & Plan (1) Left hamstring muscle strain: Code(s): S76.312A - Strain of muscle, fascia and tendon of the posterior muscle group at thigh level, left thigh, initial encounter Qualifiers: Encounter type: initial encounter Qualified Code(s): S76.312A - Strain of muscle, fascia and tendon of the posterior muscle group at thigh level, left thigh, initial encounter Plan Suspect left hamstring strain/pull, without signs of tear. No signs of DVT or Olguin's cyst. Recent ultrasound negative for DVT. We will refer to PT. Advised relative rest, elevation of leg and ice. Can take ibuprofen 600 mg t.i.d. for 7 days. Discussed side effects and precautions. Assessment and plan discussed with patient, and patient was agreeable. All questions were answered thoroughly. Follow-up 4 weeks. Miriam Mathis MD, ANU Board Certified, [place] [employer] and Rehabilitation (ABPMR) Board Certified, [place] Board [employer] Electrodiagnostic Medicine (ABEM) Orders: Orders PT Evaluation and Treatment Today S76.312A - Strain of muscle, fascia and tendon of the posterior muscle group at thigh level, left thigh, initial encounter Quality Reporting (2019) Adult ([facility] 138/11/06/68) Smoking risk assessment performed?: Yes Patient Tobacco Use Status: Current everyday Tobacco user Coding Level of Care Code New Pt Level 4 (94510) Diagnoses Strain of left hamstring muscle, initial encounter S76.312A Encounter type: initial encounter
[2023-11-26 08:12] VITALS: BMI 43.0
[2023-11-26 08:16] VITALS: BMI 43.0
== END 2023-11-26 08:56 | disposition home or self-care (01) ==
PROVIDERS: PCP Nurse Practitioner Family; Visit Provider Physical Medicine & Rehabilitation
DX: S76.312A Strain of muscle, fascia and tendon of the posterior muscle group at thigh level, left thigh, initial encounter (principal)
CPT/HCPCS: 99204

== ENCOUNTER → 2023-11-26 08:07 | Outpatient (BNVA) | payer OTHER, SELFPAY | PROVIDERS: PCP Nurse Practitioner Family; Visit Provider Physical Medicine & Rehabilitation ==

== ENCOUNTER 2023-12-05 09:40 | Outpatient (AMB) | payer OTHER, SELFPAY ==
--- NOTE | 2023-12-05 09:49 | MHC.OFFVIS ---
Intake Intake Visit Reasons: LDCT SD Allergies No Known Allergies [No Known Allergies*] Allergy (Verified 11/26/23 08:19) HPI HPI Comments History of Present Illness Details Jarrett is a pleasant 53 year old male, current smoker with a 39 PYH. Patient has been smoking since age 14 for 39 years at 1 ppd. Denies marijuana use. Denies exposure to chemicals or substances like asbestos. Admits second hand smoke exposure. Denies known family history of lung cancer. Denies personal history of cancers. Denies chest CT in last year. Denies recent travel outside the [place]. Denies fever, chills, chest pain, new cough, hemoptysis or unintentional weight loss. Lung Cancer Screening Questionnaire reviewed with patient by provider. Shared Decision Making Completed. Discussed in detail with patient, the risk versus benefit of LDCT screening. Patient in agreement of proceeding with scan. [facility] Medical History Elevated cholesterol GERD (gastroesophageal reflux disease) PONV (postoperative nausea and vomiting) Morbid obesity Diabetes mellitus Refused pneumococcal vaccination Heart murmur Surgical History H/O colonoscopy History of umbilical hernia repair (~11/27/21) History of surgery on extremity H/O heart surgery Family History Father No problems noted. Father Substance use disorder Mother Substance use disorder Maternal Uncle Substance use disorder Sister Substance use disorder Social History Housing: House Alcohol intake: current Alcohol intake frequency: holidays/special occasions only Patient Tobacco Use Status: Current everyday Tobacco user Tobacco use type: Cigarette Cigarettes Per Day: 15 Years Smoked: 25 e-Cigarette/Vaping Use: Never Used Second Hand Smoke Exposure: Yes service: No Current occupational status: employed Current occupation: [employer] Current occupational exposures/hazards: No Cognitive needs: No Hearing needs: No Vision needs: Yes Assessment & Plan Assessment & Plan (1) Smoker: Code(s): F17.200 - Nicotine dependence, unspecified, uncomplicated Plan Shared decision-making visit completed today in office. This patient meets criteria for LDCT for lung cancer screening purposes and is asymptomatic. Offered smoking cessation. Patient has been scheduled for a low dose chest CT for screening purposes at [facility]. We discussed how the results will be obtained depending on CT findings. RADS 1 and RADS 2 will receive a letter with results and will follow up for annual LDCT. Patient informed they will be contacted at later date to schedule upcoming LDCT scan. RADS 3 and RADS 4 will receive a telephone call, or an office visit after reviewing case at our Lung Cancer Conference to determine when the next LDCT will be scheduled or further interventions that may be needed. Discussed importance of screening program and compliance with yearly LDCT scan as scheduled. Risks, benefits, and alternatives were discussed in detail and patient agrees to proceed. Risks discussed include but are not limited to: radiation exposure and possibility of additional intervention for benign disease. Benefits include detection of lung cancer at an early stage. A copy of today's visit and LDCT results will be sent to patient's PCP. Incidental findings on LDCT are PCP's responsibility. If there are incidental findings, our office will ensure that PCP office is aware of these findings. All questions were answered and patient is in agreement of plan. Quality Reporting (2020) Adult ([facility] 138/11/06/68) Smoking risk assessment performed?: Yes Patient Tobacco Use Status: Current everyday Tobacco user Coding Level of Care Code Lung Cancer Screening G0296 Diagnoses Smoker F17.200
== END 2023-12-05 10:20 | disposition home or self-care (01) ==
PROVIDERS: PCP Nurse Practitioner Family; Referring Provider Nurse Practitioner Family; Visit Provider Nurse Practitioner Family
DX: F17.200 Nicotine dependence, unspecified, uncomplicated (principal)
CPT/HCPCS: G0296

== ENCOUNTER 2023-12-05 09:56 | Outpatient (REF) | payer OTHER, SELFPAY ==
--- NOTE | ~2023-12-05 | CT_ITS ---
EXAMINATION: CT LUNG SCREENING CLINICAL INFORMATION: Nicotine dependence, cigarettes, uncomplicated. COMPARISON: None available. TECHNIQUE: Multidetector volumetric CT imaging of the chest is performed without contrast using low dose technique. Additional 2D coronal and sagittal reformatted images and axial 3D maximum intensity projection (MIP) images are generated on the CT workstation. This CT examination was performed using dose optimization techniques as appropriate, variously including the following: *Automated exposure control *Adjustment of mA and/or kV according to patient size (this includes techniques or standardized protocols for targeted exams where dose is matched to indication/reason for exam; i.e. extremities or head) *Use of iterative reconstruction technique DLP: 102 mGy-cm. FINDINGS: LUNGS: Emphysematous changes are present. Moderate bronchial wall thickening is present diffusely without bronchiectasis. There is a 9 mm nodule present in the left lower lobe (5:298 and chong images). MEDIASTINUM: The mediastinum is normal. CORONARY ARTERY CALCIFICATION: None visualized on this study. PLEURA: There is no pleural effusion. No pleural mass or thickening. AXILLA: No lymphadenopathy. UPPER ABDOMEN: The spleen is enlarged at 15.2 cm in greatest transverse dimension. Cholelithiasis is noted without cholecystitis. A small fat density left adrenal nodule is seen, consistent with a benign adenoma, which needs no additional imaging or follow-up. OSSEOUS STRUCTURES: Unremarkable. CT/CT lung screening IMPRESSION: 9 mm left lower lobe lung nodule on the first study must be considered suspicious. Pulmonary emphysema and bronchial wall thickening with incidental splenomegaly and cholelithiasis. ASSESSMENT: Lung-RADS category 4A: Suspicious. RECOMMENDATION: Short interval 3 month follow up low dose CT chest.
== END 2023-12-05 09:57 | disposition home or self-care (01) ==
LOC: HO.CT 09:56
PROVIDERS: PCP Nurse Practitioner Family; Visit Provider Nurse Practitioner Family
DX: Z12.2 Encounter for screening for malignant neoplasm of respiratory organs (principal); F17.210 Nicotine dependence, cigarettes, uncomplicated
CPT/HCPCS: 71271; G0296

== ENCOUNTER 2024-01-02 07:00 | Outpatient (RCR) | payer OTHER, SELFPAY ==
--- NOTE | 2023-12-08 07:59 | MHC.PT.EP ---
[facility] [place] Office [place] Office [place] Office [address] Nemesio Goyal [address] [phone] F: [phone] F: [phone] F: [phone] F: [phone] Physical Therapy Plan of Care Date of Evaluation: 12/08/23 Date of Surgery: Diagnosis: L hamstring strain Assessment: Patient is a 53 year old R handed male who presents with s/s consistent with L hamstring strain/pain. He works with daily job demands including [employer] service with sitting at high desk and walking all day. Patient past medical history includes obesity, HTN. Current impairments include pain, posture, ROM, flexibility, gait mechanics, strength, activity tolerance and functional mobility. Functional limitations include decreased ability to stand, sit, walk, drive, work, bend, and squat. Patient is motivated with good rehab potential. Skilled PT will address impairments and functional limitations in order to achieve goals. 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 Manual therapy to restore motion and function. Therapeutic exercise to improve strength and flexibility. Neuromuscular re-education for posture and balance. Therapeutic activities to return to functional activities of daily living. Electronically signed by: Christophe Argueta, PT Please sign and return to therapist. Thank you for your referral.
--- NOTE | 2024-01-02 09:11 | MHC.PT.OD ---
[facility] [place] Office [place] [facility] [place] Office [address] Nemesio Goyal [address] [phone] F: [phone] F: [phone] F: [phone] F: [phone] Physical Therapy Daily Note Diagnosis: L hamstring strain Date of Surgery: Date of Evaluation: 12/08/23 Date of Treatment: 01/02/24 Treatments to Date: 7 Cancellations to Date: No Shows to Date: Authorized Visits: Insurance End Date: Precautions/ Contraindications:none. Subjective: The knee is killing me Pain Score and Location: 3 Objective Flowsheet: Tests & Measures min gastroc and HS tightness. HS s/s stable. 4+/5 strength grossly in b/l LE. Exercises Stepper 10 min L3 SNG 2x30 LTR 10x10 LTR with ball 3x20 each ball squeeze 20x5 (NT) supine clam black 20x5 (NT) HS rolls with ball 20x piriformis stretch 2x30 prone quad stretch 3x30 hep and pt edu S/CS L piriformis, IASTM to L HS, mod ozzy stretching Modalities IFC lumbar spine 13.0, 12 min. Assessment: 01/02/24: pt has been compliant throughout PT with good attendance and attentiveness to HEP. during his course of PT, he has been unable to achieve sustained progress although he functionally is able to stand and walk, play golf daily. His s/s still persist. He has an HEP but at this time we would hold therapy and I referred him back to his MD to discern optimal next steps, whether it be imaging or otherwise. I will keep his chart open for 1 month should he need more PT in the upcoming weeks. His ant knee pain seems to be biggest complaints while his HS discomfort is still there but to slightly less degree. 12/30/23: pt limited by knee pain. back and HS discomfort has been stable and with small signs of modest progress. we will likely refer back to MD for further imaging after next visit. IFC helped in short term. 12/26/23: pt notes progress no sustaining. we started IFC and will discern continue vs refer Next week. 12/22/23: piriformis and HS pain subsiding but knee pain persists. educated on gait mechanics. 12/19/23: pt progressing with skilled PT. added stretching. re-educated on HEP 12/15/23: pt progressing well with skilled PT. mod compliance with HEP. encouraged him in this. Patient is a 53 year old R handed male who presents with s/s consistent with L hamstring strain/pain. He works with daily job demands including [employer] service with sitting at high desk and walking all day. Patient past medical history includes obesity, HTN. Current impairments include pain, posture, ROM, flexibility, gait mechanics, strength, activity tolerance and functional mobility. Functional limitations include decreased ability to stand, sit, walk, drive, work, bend, and squat. Patient is motivated with good rehab potential. Skilled PT will address impairments and functional limitations in order to achieve goals. PT Plan: posture mod, STM, flex, symmetry and strength, function. Short Term Goals: I with HEP - 2 weeks (-) slump - 3 weeks tissue tension symmetrical - 3 weeks proper life modifications to manage s/s - 3 weeks Fdc Goals: Able to walk > 30 minutes without increased pain - 5 weeks Able to sit/stand > 30 minutes without increased pain - 5 weeks Pain with daily activities 2/10 at worst- 5 weeks LEFS 72/80 - 5 weeks Electronically signed by: Christophe Argueta, PT
--- NOTE | 2024-05-31 14:54 | MHC.PT.DC ---
[facility] [place] Office [place] [facility] [place] Office [address] Nemesio Goyal [address] [phone] F: [phone] F: [phone] F: [phone] F: [phone] Physical Therapy Discharge Report Diagnosis: L hamstring strain Date of Surgery: Date of Evaluation: 12/08/23 Date of Discharge: 02/01/24 Treatments to Date: 7 Cancellations to Date: No Shows to Date: Discharge Status: Achieved Goals Independent with HEP Discharge Summary: 01/02/24: pt has been compliant throughout PT with good attendance and attentiveness to HEP. during his course of PT, he has been unable to achieve sustained progress although he functionally is able to stand and walk, play golf daily. His s/s still persist. He has an HEP but at this time we would hold therapy and I referred him back to his MD to discern optimal next steps, whether it be imaging or otherwise. I will keep his chart open for 1 month should he need more PT in the upcoming weeks. His ant knee pain seems to be biggest complaints while his HS discomfort is still there but to slightly less degree. 12/30/23: pt limited by knee pain. back and HS discomfort has been stable and with small signs of modest progress. we will likely refer back to MD for further imaging after next visit. IFC helped in short term. 12/26/23: pt notes progress no sustaining. we started IFC and will discern continue vs refer Next week. 12/22/23: piriformis and HS pain subsiding but knee pain persists. educated on gait mechanics. 12/19/23: pt progressing with skilled PT. added stretching. re-educated on HEP 12/15/23: pt progressing well with skilled PT. mod compliance with HEP. encouraged him in this. Patient is a 53 year old R handed male who presents with s/s consistent with L hamstring strain/pain. He works with daily job demands including [employer] service with sitting at high desk and walking all day. Patient past medical history includes obesity, HTN. Current impairments include pain, posture, ROM, flexibility, gait mechanics, strength, activity tolerance and functional mobility. Functional limitations include decreased ability to stand, sit, walk, drive, work, bend, and squat. Patient is motivated with good rehab potential. Skilled PT will address impairments and functional limitations in order to achieve goals. Electronically signed by: Christophe Argueta, PT Please sign and return to therapist. Thank you for your referral.
== END 2024-05-31 14:54 | disposition home or self-care (01) ==
LOC: HO.PTCHIC 07:00
PROVIDERS: PCP Nurse Practitioner Family; Visit Provider Physical Medicine & Rehabilitation
DX: S76.312D Strain of muscle, fascia and tendon of the posterior muscle group at thigh level, left thigh, subsequent encounter (principal)
CPT/HCPCS: 97014; 97110; 97140; 97162

== ENCOUNTER 2024-01-22 13:50 | Outpatient (AMB) | payer OTHER, SELFPAY ==
--- NOTE | 2024-01-22 13:51 | MHC.OFFWIV ---
Intake Vital Signs 01/22/24 13:52 Height 6 ft 2 in Weight 338 lb BMI 43.4 BP 110/68 Blood Pressure Location Lt brachial Position Sitting Pulse 68 Pulse Source Pulse Oximeter Temp 97.9 F Temp Source Temporal Artery Scan Pulse Oximetry (%) 98 Oxygen Delivery Method Room Air Intake Visit Reasons: EP right eye stye? Intake Note: pt is here today for rt eye stye started yesterday Patient Tobacco Use Status: Current everyday Tobacco user Allergies No Known Allergies [No Known Allergies*] Allergy (Verified 01/22/24 13:58) Do you need a note to return to daycare/school/sports/work: Yes HPI HPI Comments History of Present Illness Details 53 y/o female patient who presents to walk in clinic with c/o right eye stye since yesterday and RLQ abdominal pain x 1 month. The abdominal pain is caused by sneezing and coughing. Denies SOB, CP, Nausea or vomiting. Denies changes to his BM. His abdomen is large and obese. [facility] Medical History Elevated cholesterol GERD (gastroesophageal reflux disease) PONV (postoperative nausea and vomiting) Morbid obesity Diabetes mellitus Refused pneumococcal vaccination Heart murmur Surgical History H/O colonoscopy History of umbilical hernia repair (~11/27/21) History of surgery on extremity H/O heart surgery Family History Father No problems noted. Father Substance use disorder Mother Substance use disorder Maternal Uncle Substance use disorder Sister Substance use disorder Social History Housing: House Alcohol intake: current Alcohol intake frequency: holidays/special occasions only Patient Tobacco Use Status: Current everyday Tobacco user Tobacco use type: Cigarette Cigarettes Per Day: 15 Years Smoked: 25 e-Cigarette/Vaping Use: Never Used Second Hand Smoke Exposure: Yes service: No Current occupational status: employed Current occupation: [employer] Current occupational exposures/hazards: No Cognitive needs: No Hearing needs: No Vision needs: Yes Review of Systems Const All systems reviewed & are unremarkable except as noted in HPI and below Physical Exam Vital Signs: Last Vital Signs Temp 97.9 F 01/22/24 13:52 Pulse 68 01/22/24 13:52 BP 110/68 01/22/24 13:52 Pulse Ox 98 01/22/24 13:52 Oxygen Delivery Method Room Air 01/22/24 13:52 BMI result Body Mass Index 43.4 Const General: comfortable and no acute distress Nutritional Appearance: obese Orientation/consciousness: patient oriented x3 Eyes Eyelids: Yes eyelid abnormality (Small stye filled with pus right lower eyelid) Pupils: Equal, round and reactive pupils present EOM: EOMs intact bilaterally Direct Ophthalmoscopy: normal light reflex Eyes/upper lids images: 1. Stye GI Inspection: Yes Abdominal panniculus present and Yes obesity Palpation (GI): Soft to palpation and Tenderness to palpation present (GI) (Exam limited due to large body Habitus) in the RLQ and in the RUQ Auscultation: Hypoactive bowel sounds present Neuro General: patient oriented x3, gait normal and moves all extremities Cranial nerves: Yes Equal, round and reactive pupils present Psych Speech and movement: Normal speech and movement present Assessment & Plan Assessment & Plan (1) External hordeolum: Code(s): H00.019 - Hordeolum externum unspecified eye, unspecified eyelid Qualifiers: Laterality: right Eyelid: lower Qualified Code(s): H00.012 - Hordeolum externum right lower eyelid Plan: - Warm compress - Advised to schedule an appointment with his eye doctor, if not better (2) Abdominal pain: Code(s): R10.9 - Unspecified abdominal pain Qualifiers: Abdominal location: right lower quadrant Qualified Code(s): R10.31 - Right lower quadrant pain Plan: - Large and obese abdomen, exam limited - Advised Abdominal U/S - Sent a message to PCP to order non-urgent U/S Coding Level of Care Code Est Pt Level 3 (79673) Diagnoses Hordeolum externum of right lower eyelid H00.012 Laterality: right Eyelid: lower Right lower quadrant abdominal pain R10.31 Abdominal location: right lower quadrant Time Spent (min) 15
[2024-01-22 13:52] VITALS: BP 110/68; PULSE 68; TEMP 36.6; O2SAT 98; BMI 43.4
== END 2024-01-22 14:28 | disposition home or self-care (01) ==
PROVIDERS: PCP Nurse Practitioner Family; Visit Provider Nurse Practitioner Family
DX: H00.012 Hordeolum externum right lower eyelid (principal); R10.31 Right lower quadrant pain
CPT/HCPCS: 99213

== ENCOUNTER 2024-02-04 08:58 | Outpatient (REF) | payer OTHER, SELFPAY ==
--- NOTE | ~2024-02-04 | US_ITS ---
EXAMINATION: US ABDOMEN LIMITED CLINICAL INFORMATION: Right lower quadrant pain. Right upper quadrant pain. COMPARISON: Ultrasound abdomen complete 01/18/2021. CT abdomen and pelvis 10/26/2017. TECHNIQUE: Real-time imaging of the right upper quadrant abdominal viscera. Technically difficult study secondary to body habitus. FINDINGS: PANCREAS: Limited visualization of pancreatic tail and head. Imaged portion of pancreatic body is unremarkable. LIVER: Hepatomegaly, 21.3 cm. Increased hepatic parenchymal heterogeneity and echogenicity could be associated with hepatocellular disease/hepatic steatosis and substantially limits visualization. Correlation with liver function tests and clinical exam recommended to determine further management. GALLBLADDER: Multiple gallstones. Gallbladder wall thickening. COMMON BILE DUCT: Normal in caliber measuring 0.4 cm in diameter. RIGHT KIDNEY: No hydronephrosis. No renal calculi. Limited visualization. The kidney measures 14.2 cm in maximum dimension. FREE FLUID: None. ADDITIONAL FINDINGS: Targeted ultrasound images were obtained by the robot programmer of the area of concern as indicated by the patient in the right lower quadrant and demonstrated no hernia, mass or fluid collection. Limited visualization due to bowel gas and body habitus. Radiologist was not in attendance. Images were later provided for interpretation. US/US abdomen limited IMPRESSION: 1. Hepatomegaly, 21.3 cm. Increased hepatic parenchymal heterogeneity and echogenicity could be associated with hepatocellular disease/hepatic steatosis and substantially limits visualization. Correlation with liver function tests and clinical exam recommended to determine further management. 2. Multiple gallstones. Gallbladder wall thickening. 3. Targeted ultrasound images were obtained by the robot programmer of the area of concern as indicated by the patient in the right lower quadrant and demonstrated no hernia, mass or fluid collection. Limited visualization due to bowel gas and body habitus. CT scan could be considered for further evaluation based on the clinical assessment.
== END 2024-02-04 08:59 | disposition home or self-care (01) ==
LOC: HO.HMGCX 08:58
PROVIDERS: PCP Nurse Practitioner Family; Visit Provider Nurse Practitioner Family
DX: R10.31 Right lower quadrant pain (principal)
CPT/HCPCS: 76705

== ENCOUNTER → 2024-03-09 07:31 | Outpatient (REF) | payer OTHER, SELFPAY ==
--- NOTE | ~2024-03-09 | CT_ITS ---
EXAMINATION: CT LOW-DOSE SCREENING CHEST WITHOUT CONTRAST CLINICAL INFORMATION: Solitary pulmonary nodule. The patient is a current smoker with a 41 pack-year history of smoking. COMPARISON: CT chest 12/05/2023. There is a 9 mm nodule present in the left lower lobe (5:298 and chong images). TECHNIQUE: Multidetector volumetric CT imaging of the chest is performed on a Siemens SOMATOM Definition scanner without contrast using low dose technique. Additional 2D coronal and sagittal reformatted images and axial 3D maximum intensity projection (MIP) images are generated on the CT workstation. This CT examination was performed using dose optimization techniques as appropriate, variously including the following: *Automated exposure control *Adjustment of mA and/or kV according to patient size (this includes techniques or standardized protocols for targeted exams where dose is matched to indication/reason for exam; i.e. extremities or head) *Use of iterative reconstruction technique TOTAL EXAM DLP: 113 mGy-cm. CTDIvol: 2.86 mGy. FINDINGS: PULMONARY NODULES: There is a 9 mm nodule seen in the left lower lobe but is entirely unchanged when compared to the prior study (5:363 compare prior 5:298). No new or additional pulmonary nodules are seen. LUNGS: Lungs bilaterally symmetrically expanded. No focal lung nodule or mass. No effusion or pneumothorax. Central airways patent. MEDIASTINUM: No mediastinal, hilar or axillary adenopathy or free fluid collection. CORONARY ARTERY CALCIFICATION: None visualized on this study. THYROID GLAND: Unremarkable to the extent seen. CARDIOVASCULAR STRUCTURES: Aortic and heart size normal. No pericardial effusion. CHEST WALL/AXILLA: Unremarkable. UPPER ABDOMEN: Again noted is splenomegaly at 15.6 cm in greatest transverse dimension. Left adrenal nodule shown to be a benign adenoma is unchanged and needs no follow-up. Cholelithiasis is again noted. Included portions of the solid organs in the upper abdomen are otherwise unremarkable on noncontrast imaging. OSSEOUS STRUCTURES: No suspicious focal findings. CT/CT lung screen follow up IMPRESSION: 1. Stable 9 mm left lower lobe pulmonary nodule. 2. Other incidental findings as described above. 3. Lung-RADS Category S Negative. There are no clinically significant or potentially clinically significant findings not related to the lungs requiring urgent additional evaluation. ASSESSMENT: 1. Lung-RADS Category 3: Probably benign findings. RECOMMENDATION: A 6-month follow up low-dose lung CT scan is recommended. An order for CT LUNG CANCER SCREENING SHORT INTERVAL FOLLOWUP ([id number]) can be placed. If the lesion continues to be stable, surveillance can be changed to yearly.
== END | disposition home or self-care (01) ==
LOC: HO.CT
PROVIDERS: PCP Nurse Practitioner Family; Visit Provider Nurse Practitioner Family
DX: R91.1 Solitary pulmonary nodule (principal); F17.200 Nicotine dependence, unspecified, uncomplicated
CPT/HCPCS: 71250

== ENCOUNTER 2024-04-12 15:07 | Outpatient (REF) | payer OTHER, SELFPAY ==
--- NOTE | ~2024-04-12 | CT_ITS ---
EXAMINATION: CT ABDOMEN AND PELVIS WITHOUT CONTRAST CLINICAL INFORMATION: Right lower quadrant pain COMPARISON: None available. TECHNIQUE: Multidetector volumetric imaging was performed from the superior aspect of the liver through the pubic symphysis. Sagittal and coronal reformatted images were obtained on the technologist's workstation. This CT examination was performed using dose optimization techniques as appropriate, variously including the following: *Automated exposure control *Adjustment of mA and/or kV according to patient size (this includes techniques or standardized protocols for targeted exams where dose is matched to indication/reason for exam; i.e. extremities or head) *Use of iterative reconstruction technique DLP: 1001 mGy-cm FINDINGS: LUNG BASES: The visualized lung bases are unremarkable. LIVER, GALLBLADDER, AND BILIARY TREE: Liver is of low attenuation due to hepatic steatosis and enlarged, without intrahepatic masses or ductal dilatation. Gallbladder revealed a layering small stones consistent with corticated changes but there is no evidence of cholecystitis. CBD is nondilated. PANCREAS: Unremarkable. SPLEEN: Spleen is enlarged measuring 16 cm. ADRENAL GLANDS: Unremarkable. KIDNEYS AND URETERS: The kidneys are normal in size, shape, and attenuation. No hydronephrosis, hydroureter, or calculi seen. No perinephric stranding. BLADDER: Unremarkable. GASTROINTESTINAL TRACT: The small and large bowel are unremarkable. The appendix is unremarkable. ABDOMINAL WALL: There is fat-containing umbilical hernia. LYMPH NODES: Normal. VASCULAR: Unremarkable. PELVIC VISCERA: Uterus is surgically absent OSSEOUS STRUCTURES: Unremarkable. CT/CT abdomen pelvis wo IV con IMPRESSION: 1. Cholelithiasis without cholecystitis. 2. Hepatosplenomegaly. 3. Fat-containing umbilical hernia. Fleischner guidelines were followed. Electronically signed by: Kane Lopez MD 05/10/2024 09:46 AM EDT
== END 2024-04-12 15:08 | disposition home or self-care (01) ==
LOC: HO.CT 15:07
PROVIDERS: PCP Nurse Practitioner Family; Visit Provider Nurse Practitioner Family
DX: R10.31 Right lower quadrant pain (principal)
CPT/HCPCS: 74176

== ENCOUNTER 2024-04-23 08:01 | Outpatient (AMB) | payer OTHER, SELFPAY ==
[2024-04-23 08:03] VITALS: BP 124/82; PULSE 64; TEMP 36.7; O2SAT 98; BMI 42.1
--- NOTE | 2024-04-23 08:03 | AM.OFFWIN_ITS ---
Intake Vital Signs 04/23/24 08:03 Height 6 ft 2 in Weight 328 lb BMI 42.1 BP 124/82 Blood Pressure Location Lt brachial Position Sitting Pulse 64 Pulse Source Pulse Oximeter Temp 98.1 F Temp Source Oral Pulse Oximetry (%) 98 Oxygen Delivery Method Room Air Intake Visit Reasons: EP Cough, chest/head cold Intake Note: pt c/o cough and cold. Started Friday Patient Tobacco Use Status: Current everyday Tobacco user Allergies No Known Allergies [No Known Allergies*] Allergy (Verified 04/23/24 08:07) Do you need a note to return to daycare/school/sports/work: Yes HPI HPI Comments History of Present Illness Details Patient is a 53-year-old male complaining of 3 days of a barky cough. He states his cough is dry and his tells him he sounds like a seal. He is also complaining of head congestion and sinus pain. He denies any ear pain, shortness of breath chest pain or wheezing or fever. He has been taking [employer] vapo cool cough medicine which seems to be helping. He states nobody is sick at home. He states he did test for COVID at home in his test was negative. [facility] Medical History (Updated 04/23/24 @ 08:29 by Kaitlynn Ramachandran PA-C) Heart murmur Dyslipidemia Diabetes mellitus GERD (gastroesophageal reflux disease) Fatty liver Tubular adenoma of colon Splenomegaly Nicotine dependence, cigarettes, uncomplicated PONV (postoperative nausea and vomiting) Morbid obesity Erectile dysfunction Refused pneumococcal vaccination Surgical History (Updated 04/01/24 @ 10:30 by Navya Alcala PA-C) History of colonoscopy History of ventricular septal defect repair History of umbilical hernia repair (~11/2021) History of surgery on extremity Family History Father No problems noted. Father Substance use disorder Mother Substance use disorder Maternal Uncle Substance use disorder Sister Substance use disorder Social History Housing: House Alcohol intake: current Alcohol intake frequency: holidays/special occasions only Patient Tobacco Use Status: Current everyday Tobacco user Tobacco use type: Cigarette Cigarettes Per Day: 15 Years Smoked: 25 e-Cigarette/Vaping Use: Never Used Second Hand Smoke Exposure: Yes service: No Current occupational status: employed Current occupation: [employer] Current occupational exposures/hazards: No Cognitive needs: No Hearing needs: No Vision needs: Yes Review of Systems Const All systems reviewed & are unremarkable except as noted in HPI and below Physical Exam Vital Signs: Last Vital Signs Temp 98.1 F 04/23/24 08:03 Pulse 64 04/23/24 08:03 BP 124/82 04/23/24 08:03 Pulse Ox 98 04/23/24 08:03 Oxygen Delivery Method Room Air 04/23/24 08:03 BMI result Body Mass Index 42.1 Const General: cooperative, healthy appearing, comfortable and no acute distress Orientation/consciousness: patient oriented x3 Limitations: no limitations HEENT Head: Yes normal to inspection Ears: hearing grossly normal bilaterally, external ears normal and TM's normal bilaterally General nose exam: Normal external nose present, Normal nares present and No nasal discharge present Face and sinus: Yes normal facial exam and Yes sinuses nontender Mouth: Normal oral and palatal mucosa present and moist mucous membranes Throat: Yes tonsils normal, Yes uvula midline and Yes posterior oropharynx abnormal (Erythema) Eyes General: appearance normal, both eyes and all related structures Neck Neck: Yes normal visual inspection Resp Effort & Inspection: normal respiratory effort, able to speak in complete sentences, no respiratory distress, not tachypneic, no tripod positioning and no use of accessory muscles Auscultation: rhonchi right upper and right lower Cardio Rate: regular rate Rhythm: regular rhythm Heart sounds: normal S1 and S2 Skin General skin exam: no rashes or lesions noted Neuro General: patient oriented x3 Extrem General: Yes normal to inspection and Yes no clubbing, cyanosis or edema Assessment & Plan Assessment & Plan (1) Cough: Code(s): R05.9 - Cough, unspecified Qualifiers: Cough type: acute Qualified Code(s): R05.1 - Acute cough Plan: Vital signs are stable, with the right-sided rhonchi, we will get chest x-ray. Plan See above Orders: Orders XR chest 2V Today R05.9 - Cough, unspecified Coding Level of Care Code Est Pt Level 3 (45000) Diagnoses Acute cough R05.1 Cough type: acute
== END 2024-04-23 08:35 | disposition home or self-care (01) ==
PROVIDERS: PCP Nurse Practitioner Family; Visit Provider Physician Assistant
DX: R05.1 Acute cough (principal)
CPT/HCPCS: 99213

== ENCOUNTER 2024-04-23 08:24 | Outpatient (REF) | payer OTHER, SELFPAY ==
--- NOTE | ~2024-04-23 | XR_ITS ---
EXAMINATION: XR CHEST CLINICAL INFORMATION: Cough. COMPARISON: CT chest 03/09/2024. TECHNIQUE: 2 views of the chest were obtained. FINDINGS: Normal heart size. Diffuse interstitial thickening, more noticeable in the central lungs. No dense consolidation. No pleural effusion or pneumothorax. A 9 mm left lower lobe pulmonary nodule is best visualized on prior CT chest. No acute osseous findings. Visualized upper abdomen is within normal limits. XR/XR chest 2V IMPRESSION: 1. Diffuse interstitial thickening is nonspecific and could be associated with bronchitis, reactive airways disease or atypical infections. 2. No dense consolidation. 3. A 9 mm left lower lobe pulmonary nodule is best visualized on prior CT chest.
== END 2024-04-23 08:25 | disposition home or self-care (01) ==
LOC: HO.HMGCX 08:24
PROVIDERS: PCP Nurse Practitioner Family; Visit Provider Physician Assistant
DX: R05.9 Cough, unspecified (principal)
CPT/HCPCS: 71046

== ENCOUNTER 2024-04-27 06:07 | Outpatient (REF) | payer OTHER, SELFPAY ==
[2024-04-27 10:20] LABS: Appearance Urine Cloudy; Color Urine Yellow; Glucose Urine UA Negative (Negative); Leukocyte Esterase Urine Negative (Negative); MANUAL DIFF FLAG NO; Nitrite Urine Negative (Negative); PH 5.5 (5.0-9.0); Urine Blood Negative (Negative); Urine Ketones Trace mg/dL (Negative); Urine Protein Negative (Neg-Trace)
[2024-04-27 10:36] LABS: Basophils Absolute Auto 0.1 X10*3/uL (0.0-0.2); Basophils Percent Auto 0.7 % (0-2); Eosinophils Absolute Auto 0.1 X10*3/uL (0.0-0.4); Eosinophils Percent Auto 1.8 % (0-4); Hemoglobin 16.2 g/dl (14.0-18.0); Imm Gran Abs Auto 0.03 X10*3/uL (0.00-0.03); Imm Gran Pct Auto 0.4 % (0.0-0.4); Lymphocytes Absolute Auto 1.8 X10*3/uL (1.2-4.9); Lymphocytes Percent Auto 26.2 % (20-40); Mean Corpuscular HGB Conc 34.5 g/dl (31.0-36.0); Mean Corpuscular Hemoglobin 30.5 pg (27.0-33.0); Mean Corpuscular Volume 88.5 fL (80.0-98.0); Monocytes Absolute Auto 0.5 X10*3/uL (0.1-1.2); Monocytes Percent Auto 7.9 % (2-11); Neutrophils Absolute Auto 4.3 x10*3/uL (2.0-8.3); Platelet Count 181 X10*3/uL (160-400); Red Blood Count 5.31 X10*6/uL (4.60-5.80); Red Cell Distribution Width 12.9 % (11.0-16.0); White Blood Count 6.8 X10*3/uL (4.8-10.8)
[2024-04-27 11:05] LABS: Prostate Specific Antigen Scr 0.18 ng/mL (<0.05-4.0)
[2024-04-27 11:09] LABS: Alanine Aminotransferase 30 U/L (0-40); Alkaline Phosphatase 95 U/L (39-117); Anion Gap 11 (12-20); Aspartate Amino Transferase 22 U/L (5-37); Bilirubin Total 0.4 mg/dL (0.0-1.0); Blood Urea Nitrogen 12 mg/dL (9-16); Calcium 8.6 mg/dL (8.4-10.2); Carbon Dioxide 25 mmol/L (22-29); Chloride 106 mmol/L (96-108); Cholesterol 146 mg/dL (<200); Estimated Glomerular Filt Rate > 60; Glucose Fasting 154 mg/dL (60-99); HDL Cholesterol 27 mg/dL (>40); LDL Cholesterol Calculated 85 mg/dL (<100); Potassium 3.9 mmol/L (3.3-5.1); Sodium 138 mmol/L (135-145); Total Protein 7.3 g/dL (6.5-8.0); Triglycerides 172 mg/dL (<150)
[2024-04-27 11:10] LABS: TSH reflex Free T4 1.43 uIU/mL (0.32-4.0)
[2024-04-27 11:13] LABS: Estimated Average Glucose 128 mg/dL; Hemoglobin A1c % 6.1 % (<6.0)
[2024-04-27 11:29] LABS: Creatinine Urine 154.46 mg/dL; Microalbum/Creatinine Ratio Ur 25.8 ug/mg cr (<30)
== END 2024-04-27 06:08 | disposition home or self-care (01) ==
LOC: HO.HMGCLDS 06:07
PROVIDERS: PCP Nurse Practitioner Family; Visit Provider Nurse Practitioner Family
DX: Z00.00 Encounter for general adult medical examination without abnormal findings (principal); E11.9 Type 2 diabetes mellitus without complications; E78.5 Hyperlipidemia, unspecified; Z12.5 Encounter for screening for malignant neoplasm of prostate
CPT/HCPCS: 36415; 80053; 80061; 81003; 82043; 82570; 83036; 84153; 84443; 85025

== ENCOUNTER 2024-05-03 15:05 | Outpatient (AMB) | payer OTHER, SELFPAY ==
[2024-05-03 15:12] VITALS: BP 138/82; PULSE 79; O2SAT 97; BMI 42.6
--- NOTE | 2024-05-03 15:12 | A.OFFPC_ITS ---
Vital Signs 05/03/24 15:12 Height 6 ft 2 in Weight 332 lb BMI 42.6 BP 138/82 Blood Pressure Location Rt brachial Position Sitting Pulse 79 Pulse Source Pulse Oximeter Pulse Oximetry (%) 97 Oxygen Delivery Method Room Air Intake Visit Reasons: DM followup Intake Note: pt is here for DM follow up Turbinated Bone Grinder Required: No Accompanied by: Self / Same As Patient Allergies No Known Allergies [No Known Allergies*] Allergy (Verified 05/03/24 15:30) Medication List - Last Reconciled 05/03/24 by NORMA Reddy acetaminophen 1,000 mg (2 x 500 mg) PO Q6H PRN alcohol swabs (Alcohol Prep Pads) 1 pad topical BID 30 days atorvastatin 10 mg PO BEDTIME 90 days blood sugar diagnostic (FreeStyle Lite Strips) Use to check fasting blood sugar in am and random blood sugar during the day. diclofenac sodium 75 mg PO Q OTHER DAY 90 days FreeStyle [place] 2 [place] (flash glucose scanning reader) Tid testing NS FreeStyle Boyd 2 Sensor (flash glucose sensor) TID testing NS lancets (FreeStyle Lancets) Use to check fasting blood sugar in am and random blood sugar during the day. lisinopril 2.5 mg PO DAILY metformin 500 mg PO ONCE omeprazole 20 mg PO DAILY sildenafil 50 mg PO DAILY PRN 10 days Tobacco use date assessed: 10/21/23 Dental Screening Dental Screen Date: 10/21/23 HPI DM followup HPI Details Pt is a diabetic, on an NICHOLE and a statin. Last A1C was 6.1. Microalbumin is up to date. Denies polyuria, polydipsia, and neuropathy. Pt denies any signs and symptoms of hypoglycemia and does know how to correct it. Pt reports that he has not been taking his ozempic. Pt was seen in the walk-in on 04/23 for cough. He was treated with zpak for pneumonia. Will repeat chest XR. Denies fever, chills, chest pain, and shortness of breath. He reports, feeling better [facility] Medical History Heart murmur Dyslipidemia Diabetes mellitus GERD (gastroesophageal reflux disease) Fatty liver Tubular adenoma of colon Splenomegaly Nicotine dependence, cigarettes, uncomplicated PONV (postoperative nausea and vomiting) Morbid obesity Erectile dysfunction Refused pneumococcal vaccination Surgical History History of colonoscopy History of ventricular septal defect repair History of umbilical hernia repair (~11/2021) History of surgery on extremity Family History Father No problems noted. Father Substance use disorder Mother Substance use disorder Maternal Uncle Substance use disorder Sister Substance use disorder Social History Housing: House Alcohol intake: current Alcohol intake frequency: holidays/special occasions only Patient Tobacco Use Status: Current everyday Tobacco user Tobacco use type: Cigarette Cigarettes Per Day: 15 Years Smoked: 25 Packs per year/per ci.75 e-Cigarette/Vaping Use: Never Used Second Hand Smoke Exposure: Yes service: No Current occupational status: employed Current occupation: [employer] Current occupational exposures/hazards: No Cognitive needs: No Hearing needs: No Vision needs: Yes Questionnaire PHQ-9 Over the last 2 weeks, how often have you been bothered by any of the following problems? 1. Little interest or pleasure in doing things: not at all 2. Feeling down, depressed, or hopeless: not at all 3. Trouble falling or staying asleep, or sleeping too much: not at all 4. Feeling tired or having little energy: not at all 5. Poor appetite or overeating: not at all 6. Feeling bad about yourself - or that you are a failure or have let yourself or your family down: not at all 7. Trouble concentrating on things, such as reading the newspaper or watching television: not at all 8. Moving or speaking so slowly that other people could have noticed. Or the opposite - being so fidgety or restless that you have been moving around a lot more than usual: not at all 9. Thoughts that you would be better off or of hurting yourself in some way: not at all Total score: 0 Depression Screening Interpretation: Negative Depression Screening Done: Yes 36162 - PHQ-9 Billing: Yes Source: Developed by Drs. Je Gonzalez, Saray Villafana, Elian Hatfield and colleagues, with an educational yamileth from [employer]. Thrive Questionnaire Date Thrive assessed: 05/03/24 I am a: Patient What is your living situation today?: I have a steady place to live Within the past 12 months, did the food you bought not last and you didn't have the money to get more?: Never true Within the past 12 months, did you worry whether your food would run out before you got money to buy more?: Never true Do you have trouble paying for medicines?: No Do you have trouble getting transportation to medical appointments?: No Do you have trouble paying your heating and electricity bill?: No Do you have trouble taking care of your child, family member or friend?: No Do you have trouble with day-to-day activities such as bathing, preparing meals, shopping, managing finances, etc.?: No Are you currently unemployed and looking for a job?: No Are you interested in more education?: No Please select the resources that you would like help with: None Currently or been in a relationship where the following occur: No concerns reported THRIVE Score: 0 AUDIT C Alcohol Use Questionnaire (AUDIT-C) 1. How often do you have a drink containing alcohol?: Monthly or less 2. How many drinks containing alcohol do you have on a typical day when you are drinking?: 3 or 4 3. How often do you have six or more drinks on one occasion?: Never Total Score: 2 Score Reviewed/Action Taken: Yes IRENE-7 AMB Questionnaire IRENE-7 Date IRENE - 7 assessed: 05/03/24 Feeling nervous, anxious, or on edge: 0 = Not at all Not being able to stop or control worryin = Not at all Worrying too much about different things: 0 = Not at all Trouble relaxin = Not at all Being so restless that it is hard to sit still: 0 = Not at all Becoming easily annoyed or irritable: 0 = Not at all Feeling afraid as if something awful might happen: 0 = Not at all Total IRENE-7 score (0-4 normal; 5-9 mild; 10-14 moderate; 15-21 severe): 0 Source: Developed by Drs. Je Gonzalez, Saray Villafana, Elian Hatfield and colleagues, with an educational yamileth from [employer]. IRENE-7 Assessment Billing IRENE-7 Assessment Tool: IRENE-7 Assessment 97635 Review of Systems Const Reports as per HPI Physical exam (Primary Care) Vital Signs: Last Vital Signs Pulse 79 05/03/24 15:12 BP 138/82 05/03/24 15:12 Pulse Ox 97 05/03/24 15:12 Oxygen Delivery Method Room Air 05/03/24 15:12 BMI result Body Mass Index 42.6 Tobacco/Smoking Status: Tobacco use Status Tobacco use date assessed 10/21/23 05/03/24 15:16 Patient Tobacco Use Status Current everyday Tobacco 05/03/24 15:16 Tobacco use type Cigarette 05/03/24 15:16 e-Cigarette/Vaping Use Never Used 05/03/24 15:16 PHQ-9: PHQ-9 Score PHQ-9: Total score 0 05/03/24 15:31 Depression Screening Interpretation: Negative Thrive Assessment: Date of Thrive Assessment Date Thrive assessed 05/03/24 05/03/24 15:16 Currently or been in a relationship where the following occur: No concerns reported Const General: cooperative Nutritional Appearance: obese morbidly obese Orientation/consciousness: patient oriented x3 Resp Other: significant wheezing and rhonchi Effort & Inspection: normal respiratory effort Cardio Rate: regular rate Rhythm: regular rhythm Heart sounds: S1 normal heart sound present and S2 normal heart sound present Neuro General: patient oriented x3 Extrem Other: bilat feet: + sensation with use of monofilament, feet intact Psych Appearance: grossly normal Mental Status: mental status grossly normal Speech and movement: Normal speech and movement present Affect: normal affect Attitude: cooperative Thought process: Normal thought process present Thought content: Normal thought content present Insight: Good insight present (Psych) Judgement: Good judgement present (Psych) Assessment and Plan Assessment & Plan (1) Pneumonia: Code(s): J18.9 - Pneumonia, unspecified organism Plan: Repeat chest XR ordered (2) Diabetes mellitus: Code(s): E11.9 - Type 2 diabetes mellitus without complications Plan: well controlled Plan The patient agreed to the use of a medical director/head team physician for this encounter. Scribed for NORMA Ibrahim by Mary Rivera medical director/head team physician, on 05/03/2024 at 15:30 EST. Orders: Orders XR chest 2V Today J18.9 - Pneumonia, unspecified organism Referrals Gastroenterology Referral E11.9 - Type 2 diabetes mellitus without complications Coding Level of Care Code Est Pt Level 3 (05377) Diagnoses Pneumonia J18.9 Diabetes mellitus E11.9 Additional Codes IRENE-7 Assessment Billing - RIENE-7 Assessment Tool: IRENE-7 Assessment 24597 ([id number])
== END 2024-05-03 16:53 | disposition home or self-care (01) ==
PROVIDERS: PCP Nurse Practitioner Family; Visit Provider Nurse Practitioner Family
DX: J18.9 Pneumonia, unspecified organism (principal); E11.9 Type 2 diabetes mellitus without complications
CPT/HCPCS: 99213

== ENCOUNTER 2024-05-31 08:30 | Outpatient (REF) | payer OTHER, SELFPAY ==
--- NOTE | ~2024-05-31 | XR_ITS ---
EXAMINATION: XR CHEST CLINICAL INFORMATION: Pneumonia unspecified organism. COMPARISON: 04/23/2024 TECHNIQUE: 2 views of the chest were obtained. FINDINGS: There is no gross pneumothorax. Redemonstration of mild asymmetric elevation of the left lung base. Mild diffuse interstitial prominence most noted in the central and lower lungs redemonstrated. Mild degenerative changes in the thoracic spine. No gross pleural effusion. XR/XR chest 2V IMPRESSION: Redemonstration of mild asymmetric elevation of the left lung base. Mild diffuse interstitial prominence most noted in the central and lower lungs redemonstrated. This study was presented today July 04, 2024 for interpretation. Stat results provided at this time as requested by referring provider. Electronically signed by: Radha Garza MD 07/12/2024 11:37 AM EDT
== END 2024-05-31 08:31 | disposition home or self-care (01) ==
LOC: HO.HMGCX 08:30
PROVIDERS: PCP Nurse Practitioner Family; Visit Provider Nurse Practitioner Family
DX: J18.9 Pneumonia, unspecified organism (principal)
CPT/HCPCS: 71046

== ENCOUNTER 2024-06-17 08:04 | Outpatient (AMB) | payer OTHER, SELFPAY ==
--- NOTE | 2024-06-17 08:18 | AM.OFFWIN_ITS ---
Intake Vital Signs 06/17/24 08:20 Height 6 ft 2 in Weight 329 lb BMI 42.2 BP 124/82 Blood Pressure Location Lt brachial Position Sitting Pulse 66 Pulse Source Pulse Oximeter Pulse Oximetry (%) 98 Oxygen Delivery Method Room Air Intake Visit Reasons: EP back pain, lt heel pain Intake Note: Patient here for lower back pain that has been present for almost 3 weeks and also has left heel pain. Patient Tobacco Use Status: Current everyday Tobacco user Allergies No Known Allergies [No Known Allergies*] Allergy (Verified 06/17/24 08:20) Do you need a note to return to daycare/school/sports/work: Yes HPI EP back pain, lt heel pain HPI Details This note is constructed using voice recognition software. While every effort has been made to ensure accuracy, stitch bonding machine tender helper errors may have been included. The patient is a 53 year old male who presents to the clinic today with left heel and bilateral lumbar pain. The heel pain has been for the last month and a half, worse after walking on it all day. He has tried purchasing several new pairs of shoes which does not seem to help. He puts icy hot and ice on the heel, helped some but does not relieve it. He feels that he is walking with an off gait as a result, and due to that approximately 3 weeks ago his lumbar region of his back started to be painful. The pain is worse when he is sitting for prolonged periods of time or standing in the same place for long period of time, or going from sitting to standing. He denies numbness and tingling in his legs. He denies loss of control of his bowel or bladder. He denies trauma, injury, or surgery to his back or his foot. He does take diclofenac every other day following an injury to his right Achilles, at which he avoids every day to protect his kidneys. He he notes that his kidneys have been healthy, however he is attempting to have a proactive approach. [facility] Medical History (Updated 05/11/24 @ 14:52 by NORMA Reddy) Cholelithiasis H/O splenomegaly Hepatomegaly Heart murmur Dyslipidemia Diabetes mellitus GERD (gastroesophageal reflux disease) Fatty liver Tubular adenoma of colon Splenomegaly Nicotine dependence, cigarettes, uncomplicated PONV (postoperative nausea and vomiting) Morbid obesity Erectile dysfunction Refused pneumococcal vaccination Surgical History History of colonoscopy History of ventricular septal defect repair History of umbilical hernia repair (~11/2021) History of surgery on extremity Family History Father No problems noted. Father Substance use disorder Mother Substance use disorder Maternal Uncle Substance use disorder Sister Substance use disorder Social History Housing: House Alcohol intake: current Alcohol intake frequency: holidays/special occasions only Patient Tobacco Use Status: Current everyday Tobacco user Tobacco use type: Cigarette Cigarettes Per Day: 15 Years Smoked: 25 e-Cigarette/Vaping Use: Never Used Second Hand Smoke Exposure: Yes service: No Current occupational status: employed Current occupation: [employer] Current occupational exposures/hazards: No Cognitive needs: No Hearing needs: No Vision needs: Yes Review of Systems Const All systems reviewed & are unremarkable except as noted in HPI and below Physical Exam Vital Signs: Last Vital Signs Pulse 66 06/17/24 08:20 BP 124/82 06/17/24 08:20 Pulse Ox 98 06/17/24 08:20 Oxygen Delivery Method Room Air 06/17/24 08:20 BMI result Body Mass Index 42.2 Const General: cooperative, healthy appearing, comfortable, no acute distress and alert Orientation/consciousness: patient oriented x3 Limitations: no limitations Neck Neck: Yes normal visual inspection and Yes full ROM Resp Effort & Inspection: normal respiratory effort and able to speak in complete sentences General: Yes no CVA tenderness Back/Spine/Pelvis Other: Bilateral lumbar tenderness with increased muscle bulging. Normal lateral rotation and flexion, however has pain with flexion. Negative SLR, negative well SLR. Back: no CVA tenderness Skin General skin exam: no rashes or lesions noted, elasticity normal and turgor normal Neuro General: patient oriented x3 Extrem Other: TTP to left heel, no tenderness along plantar fascia. General: Yes normal to inspection, Yes full ROM, Yes capillary refill normal and Yes normal exam except as noted Psych Appearance: grossly normal Mental Status: mental status grossly normal Speech and movement: Normal speech and movement present Affect: normal affect Results Reviewed Results Reviewed: XR images contemporaneously read by me with findings absent of any fractures, or bone spurs. Assessment & Plan Assessment & Plan (1) Back pain: Code(s): M54.9 - Dorsalgia, unspecified Qualifiers: Back pain laterality: bilateral Back pain location: low back pain Chronicity: acute Sciatica presence: without sciatica Qualified Code(s): M 54.50 - Low back pain, unspecified Plan: Likely worsened by altered gait due to heel pain. Advised heat/ice, adequate footwear, topical muscle rubs, and we will try a muscle relaxer at bedtime with slightly increased diclofenac to daily for the next 5 days. Advised follow up with worsening or failure to resolve. (2) Foot pain, left: Code(s): M79.672 - Pain in left foot Plan: X-ray ordered to evaluate for contributing sources. Advised heat/ice, adequate footwear, topical applications of muscle rubs may be attempted. Increased diclofenac to daily for the next 5 days for symptomatic management. May benefit from referral to Podiatry with ongoing symptoms or based on foot x-ray. Plan See above for full details and plan. Orders: Orders XR foot LT min 3V Today M79.672 - Pain in left foot Medications: New cyclobenzaprine 10 mg PO BEDTIME PRN 5 tabs 0RF Muscle Spasm 5 days Coding Level of Care Code Est Pt Level 4 (96958) Diagnoses Acute bilateral low back pain without sciatica M54.50 Back pain laterality: bilateral Back pain location: low back pain Chronicity: acute Sciatica presence: without sciatica Foot pain, left M79.672
[2024-06-17 08:20] VITALS: BP 124/82; PULSE 66; O2SAT 98; BMI 42.2
== END 2024-06-17 08:50 | disposition home or self-care (01) ==
PROVIDERS: PCP Nurse Practitioner Family; Visit Provider Registered Nurse
DX: M54.50 Low back pain, unspecified (principal); M79.672 Pain in left foot

== ENCOUNTER → 2024-06-17 08:04 | Outpatient (BNVA) | payer OTHER, SELFPAY | PROVIDERS: PCP Nurse Practitioner Family ==

== ENCOUNTER 2024-06-17 08:53 | Outpatient (REF) | payer OTHER, SELFPAY ==
--- NOTE | ~2024-06-17 | XR_ITS ---
EXAMINATION: XR FOOT, LEFT CLINICAL INFORMATION: Left foot pain COMPARISON: None available. TECHNIQUE: AP, lateral, and oblique views of the left foot. FINDINGS: Degenerative changes are seen at the interphalangeal joints most marked in the first digit. Some mild degenerative changes are present at the first MTP joint. No fractures or dislocations are seen. XR/XR foot LT min 3V IMPRESSION: Degenerative changes as described above. No acute finding. Electronically signed by: Donal Buchanan MD 06/17/2024 11:07 AM EDT
== END 2024-06-17 08:54 | disposition home or self-care (01) ==
LOC: HO.HMGCX 08:53
PROVIDERS: PCP Nurse Practitioner Family; Visit Provider Registered Nurse
DX: M79.672 Pain in left foot (principal)
CPT/HCPCS: 73630

== ENCOUNTER 2024-07-12 08:03 | Outpatient (AMB) | payer OTHER, SELFPAY ==
[2024-07-12 08:09] VITALS: BP 126/82; PULSE 69; O2SAT 97; BMI 42.6
--- NOTE | 2024-07-12 08:09 | AM.OFFWIN_ITS ---
Intake Vital Signs 07/12/24 08:09 Height 6 ft 2 in Weight 332 lb BMI 42.6 BP 126/82 Blood Pressure Location Rt brachial Position Sitting Pulse 69 Pulse Source Pulse Oximeter Pulse Oximetry (%) 97 Oxygen Delivery Method Room Air Intake Visit Reasons: EP Injury to lt ribs Intake Note: Pt is here today for injury on Lt side of stomach, pt states he was on his roof and took a turn and felt a pop Patient Tobacco Use Status: Current everyday Tobacco user Allergies No Known Allergies [No Known Allergies*] Allergy (Verified 07/12/24 08:15) Do you need a note to return to daycare/school/sports/work: No HPI EP Injury to lt ribs HPI Details This note is constructed using voice recognition software. While every effort has been made to ensure accuracy, senior ux developer errors may have been included. The patient is a 53 year old male who presents to the clinic today with left- sided rib pain since yesterday. He notes that he was laying on his roof, reaching over the edge doing it project, when he was done he rolled over to get up, felt 2 pops on the left side, and then followed by sharp pain. Since that time he has had pain in the left lower rib area, that is worse with rotation, moving the arms, or taking a deep breath. He denies dyspnea, fever, cough. He continues to take diclofenac routinely due to other pain that he has been working through. [facility] Medical History (Updated 05/11/24 @ 14:52 by NORMA Reddy) Cholelithiasis H/O splenomegaly Hepatomegaly Heart murmur Dyslipidemia Diabetes mellitus GERD (gastroesophageal reflux disease) Fatty liver Tubular adenoma of colon Splenomegaly Nicotine dependence, cigarettes, uncomplicated PONV (postoperative nausea and vomiting) Morbid obesity Erectile dysfunction Refused pneumococcal vaccination Surgical History History of colonoscopy History of ventricular septal defect repair History of umbilical hernia repair (~11/2021) History of surgery on extremity Family History Father No problems noted. Father Substance use disorder Mother Substance use disorder Maternal Uncle Substance use disorder Sister Substance use disorder Social History Housing: House Alcohol intake: current Alcohol intake frequency: holidays/special occasions only Patient Tobacco Use Status: Current everyday Tobacco user Tobacco use type: Cigarette Cigarettes Per Day: 15 Years Smoked: 25 e-Cigarette/Vaping Use: Never Used Second Hand Smoke Exposure: Yes service: No Current occupational status: employed Current occupation: [employer] Current occupational exposures/hazards: No Cognitive needs: No Hearing needs: No Vision needs: Yes Review of Systems Const All systems reviewed & are unremarkable except as noted in HPI and below Physical Exam Vital Signs: Last Vital Signs Pulse 69 07/12/24 08:09 BP 126/82 07/12/24 08:09 Pulse Ox 97 07/12/24 08:09 Oxygen Delivery Method Room Air 07/12/24 08:09 BMI result Body Mass Index 42.6 Const General: cooperative, healthy appearing, comfortable, no acute distress and well developed Orientation/consciousness: patient oriented x3 Limitations: no limitations Chest Other: Tender to palpation along left lower rib area. No palpable step-offs. Chest palpation & inspection: normal inspection of the chest and no crepitus Resp Effort & Inspection: normal respiratory effort and able to speak in complete sentences Auscultation: clear to auscultation bilaterally Cardio Rate: regular rate Rhythm: regular rhythm Heart sounds: normal S1 and S2 GI Inspection: Yes normal to inspection Palpation (GI): Soft to palpation and nontender Skin General skin exam: no rashes or lesions noted Neuro General: patient oriented x3 Extrem General: Yes normal to inspection Assessment & Plan Assessment & Plan (1) Pleurodynia: Code(s): R07.81 - Pleurodynia Plan: Xray ordered to evaluate. Reviewed symptom management including use of NSAIDs, consider topical muscle rubs and lidocaine for symptomatic management. Advised follow up as needed with dyspnea, or worsening pain. Plan See above for full details and plan. Orders: Orders XR ribs LT min 3V w CXR1V Today R07.81 - Pleurodynia Coding Level of Care Code Est Pt Level 3 (21000) Diagnoses Pleurodynia R07.81
== END 2024-07-12 08:49 | disposition home or self-care (01) ==
PROVIDERS: PCP Nurse Practitioner Family; Visit Provider Registered Nurse
DX: R07.81 Pleurodynia (principal)

== ENCOUNTER 2024-07-12 08:03 | Outpatient (REF) | payer OTHER, SELFPAY ==
--- NOTE | ~2024-07-12 | XR_ITS ---
EXAMINATION: XR RIBS, LEFT CLINICAL INFORMATION: Pleuritic pain. COMPARISON: 05/31/2024 and 04/23/2024 chest x-rays. TECHNIQUE: 4 views of the left ribs. FINDINGS: There is no gross pneumothorax. Lung volumes are low. Heart size within normal limits. No gross pleural effusion. Asymmetric elevation of the left lung base redemonstrated. Redemonstration of bilateral diffuse interstitial prominence, predominantly central and lower lungs. Mild left basilar streaky opacities. Radiopaque marker placed by technologist to indicate the area of concern as indicated by the patient overlying the lower left ribs. Limited visualization of the lower left ribs due to overlying bone and soft tissues. No gross displaced lower left rib fracture appreciated. XR/XR ribs LT min 3V w CXR1V IMPRESSION: 1. Asymmetric elevation of the left lung base redemonstrated. Mild left basilar streaky opacities. Redemonstration of bilateral diffuse interstitial prominence, predominantly central and lower lungs. 2. Radiopaque marker placed by technologist to indicate the area of concern as indicated by the patient overlying the lower left ribs. Limited visualization of the lower left ribs due to overlying bone and soft tissues. No gross displaced lower left rib fracture appreciated. This study was presented today July 12, 2024 for interpretation. Stat results provided at this time as requested by referring provider. Electronically signed by: Radha Garza MD 07/12/2024 11:37 AM EDT RP
== END 2024-07-12 08:04 | disposition home or self-care (01) ==
LOC: HO.HMGCX 08:03
PROVIDERS: PCP Nurse Practitioner Family; Visit Provider Registered Nurse
DX: R07.81 Pleurodynia (principal)
CPT/HCPCS: 71101

== ENCOUNTER 2024-10-04 07:34 | Outpatient (REF) | payer OTHER, SELFPAY ==
--- NOTE | ~2024-10-04 | CT_ITS ---
EXAMINATION: CT LOW-DOSE SCREENING CHEST WITHOUT CONTRAST CLINICAL INFORMATION: Solitary pulmonary nodule. Six-month follow-up COMPARISON: None available. TECHNIQUE: Multidetector volumetric CT imaging of the chest is performed on a Siemens SOMATOM Definition scanner without contrast using low dose technique. Additional 2D coronal and sagittal reformatted images and axial 3D maximum intensity projection (MIP) images are generated on the CT workstation. This CT examination was performed using dose optimization techniques as appropriate, variously including the following: *Automated exposure control *Adjustment of mA and/or kV according to patient size (this includes techniques or standardized protocols for targeted exams where dose is matched to indication/reason for exam; i.e. extremities or head) *Use of iterative reconstruction technique CTDIvol: 107 mGy. FINDINGS: PULMONARY NODULES: There is a 9 mm nodule left lower lobe axial image 45/4, stable. No additional nodule seen. LUNGS: Lungs bilaterally symmetrically expanded. No effusion or pneumothorax. Central airways patent. MEDIASTINUM: No mediastinal, hilar or axillary adenopathy or free fluid collection. CORONARY ARTERY CALCIFICATION: None visualized on this study. THYROID GLAND: Unremarkable to the extent seen. CARDIOVASCULAR STRUCTURES: Aortic and heart size normal. No pericardial effusion. CHEST WALL/AXILLA: Unremarkable. UPPER ABDOMEN: There is a solid left adrenal lesion likely adenoma. Mild splenomegaly. Partially visualized gallbladder shows some hypodense areas question stones. OSSEOUS STRUCTURES: No suspicious focal findings. CT/CT lung screen follow up IMPRESSION: Left lower lobe 9 mm nodule is stable to last 2 CT screening exams. ASSESSMENT: 1. Lung-RADS Category 2, benign 2. Lung-RADS Category S: Negative. There are no clinically significant or potentially clinically significant findings not related to the lungs requiring urgent additional evaluation. RECOMMENDATION: Low-dose annual CT chest exam. Electronically signed by: Robert May MD 10/04/2024 02:18 PM [facility]
--- OUTSIDE RECORDS SUMMARY | 2024-10-04 07:36 | XMS_ITS | Data Portability ---
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 Primary Care Provider Assessment No assessment recorded. Plan of Treatment Reminders Order Date Submit Date Provider Last Modified By Organization Details Last Modified Time Details Appointments None recorded. Lab None recorded. Referral None recorded. Procedures None recorded. Surgeries None recorded. Imaging None recorded. Medication Orders Polytrim 10,000 unit-1 mg/mL eye drops 2022 023 [email or web address] [facility]/Pharmacy #[id number], [address] [place], [address], 3 08:19:30 erythromyci n 5 mg/gram (0.5 %) eye ointment [address] [facility] [place]Pharmacy #[id number], [address] [place], [address], 3 08:19:27 prednisone [address] [facility] ([place] [place]Pharmacy #[id number], [address] [place], [address], 3 08:31:44 albuterol sulfate HFA 90 mcg/actuati on aerosol inhaler [address] [facility] ([place] [place]Pharmacy #[id number], [address] [place], [address], 3 08:31:43 benzonatate 200 mg capsule 2022 023 [facility]/Pharmacy #[id number], [address] [facility] [place], [address], 3 08:31:44 Allergy Relief (fluticason e) 50 mcg/actuati on nasal spray,suspe nsion 2022 023 [facility]/Pharmacy #[id number], [address] [place], [address], 3 08:31:44 Patient TargetsNo targets recorded. Patient Instructions Encounter Date Encounter Id Patient Instructions Last Modified By Organization Details Last Modified Time 09/15/2022 [id number] franchescae: care instructions sghohestanib Not available 09/15/2022 15:40:10 saravanan: care instructions sghohestanib Not available 09/15/2022 15:40:10 Radha, You were seen today for conjunctivitis of your left eye. It appears to be bacterial and I am prescribing you antibiotic eye drops. Please use warm compresses as discussed. Warm black tea bag is also helpful as it is a natural anti-microbial. If you experience any worsening symptoms, changes in vision, severe eye pain, rashes or other new symptoms please return to the urgent care or proceed to ED promptly. Thanks! Please follow up with PRIMARY CARE in 5-7 days for further care and management. Please consider returning to the Urgent Care or go to the ER if having any new, worsening or changing symptoms. Otherwise following up outside of Urgent Care with a primary care doctor is very important to make sure you are improving and remain healthy. Some RED FLAG symptoms to watch out for: fevers, spreading area of redness, increasing pain or pus discharge as this could be a sign of SEVERE INFECTION It was a pleasure to take care of you! [email or web address] Not available 09/15/2022 15:40:09 01/17/2023 [id number] Patient instruct ed on worsening signs and symptoms that would require further evaluation by ED or PCP such as fever of 101.0 or greater, congestion accompanied with coughing, vomiting, diarrhea, abdominal pain, decreased oral intake, lethargy, or other new symptom(s) experienced not discussed during this visit. Use humidifier and ensure good hydration. If you experience new concerning symptoms, shortness of breath, respiratory distress, or chest pain go to the ER. Use the medications prescribed. May use Decongestants if tolerated and no history of elevated blood pressure or Diabetes. Use saline nasal saline and Flonase daily for1 week. You may use tylenol for pain/fever. Do not take prednisone with Ibuprofen. Get some extra rest. When should you call for help? Call anytime you think you may need emergency care. For example, call if: You have severe trouble breathing. Call your doctor now or seek immediate medical care if: You have new or worse trouble breathing. You cough up dark brown or bloody mucus (sputum). You have a new or higher fever. You have a new rash. Watch closely for changes in your health, and be sure to contact your doctor if: You cough more deeply or more often, especially if you notice more mucus or a change in the color of your mucus. You are not getting better as expected. [email or web address] Not available 01/17/2023 08:31:38 Reason for Referral None Reported. Problems Name Problem SNOMED Code Status Onset Date Resolution Date Notes Provider Name and Address Organization Details Recorded Time Hypercholestero lemia 93169617 Active 2022 MICHELE DEPINTO null, PA - [facility] 3 15:24:10 Diabetes mellitus 64766735 Active 2022 MICHELE DEPINTO null, PA - [facility] 3 15:24:14 Heart murmur 78250507 Active 2022 MICHELE DEPINTO null, PA - [facility] 3 15:26:08 Problem Notes None recorded. Procedures Surgical History Date Name Laterality Status Provider Name and Address Organization Details Recorded Time hernia repair completed MICHELE DEPINTO PA - [facility] 09/15/2022 15:25:10 excision of cyst completed MICHELE DEPINTO PA - [facility] 09/15/2022 15:25:58 Imaging Results None recorded. Procedure Notes None recorded. Medical Equipment None Reported. Allergies No known drug allergies Medications Name Sig Start Date Stop Date Status Note LastModified by Organization Details LastModified Time cyclobenzap rine 10 mg tablet TAKE 1 TABLET BY MOUTH EVERY DAY AT BEDTIME NEEDED FOR MUSCLE SPASMS active Not Available Not Available No t Available metformin 500 mg tablet TAKE 1 TABLET BY MOUTH TWICE A DAY FOR 90 DAYS active Not Available Not Available No t Available sildenafil 50 mg tablet PLEASE SEE ATTACHED FOR DETAILED DIRECTION S active Not Available Not Available No t Available atorvastati n 10 mg tablet TAKE 1 TABLET BY MOUTH AT BEDTIME. active Not Available Not Available No t Available benzonatate 200 mg capsule TAKE 1 CAPSULE BY MOUTH THREE TIMES A DAY NEEDED FOR 7 DAYS active Not Available Not Available No t Available FreeStyle Lancets 28 gauge USE TO CHECK FASTING BLOOD SUGAR IN AM AND RANDOM BLOOD SUGAR DURING THE DAY. active Not Available Not Available No t Available prednisone 20 mg tablet TAKE 2 TABLETS BY MOUTH EVERY DAY IN THE MORNING FOR 3 DAYS active Not Available Not Available No t Available cephalexin 500 mg capsule TAKE 1 CAPSULE BY MOUTH TWICE A DAY active Not Available Not Available No t Available erythromyci n 5 mg/gram (0.5 %) eye ointment APPLY 1 APPLICATI ON 4 TIMES A DAY INTO AFFECTED EYE FOR 7 DAYS active Not Available Not Available No t Available Polytrim 10,000 unit-1 mg/mL eye drops INSTILL 1 DROP INTO AFFECTED EYE(S) BY OPHTHALMI C ROUTE EVERY 6 HOURS FOR 7 DAYS 01/17 completed Not Available Not Available Not Available omeprazole 20 mg capsule,del ayed release TAKE 1 CAPSULE BY MOUTH EVERY DAY active Not Available Not Available No t Available diclofenac sodium 75 mg tablet,neida yed release TAKE 1 TABLET BY MOUTH EVERY OTHER DAY FOR 30 DAYS active Not Available Not Available No t Available albuterol sulfate HFA 90 mcg/actuati on aerosol inhaler INHALE 2 PUFFS EVERY 4 TO 6 HOURS NEEDED FOR 10 DAYS active Not Available Not Available No t Available fluticasone propionate 50 mcg/actuati on nasal spray,suspe nsion SPRAY 1 SPRAY BY INTRANASA L ROUTE EVERY DAY DIRECTED FOR 30 DAYS active Not Available Not Available No t Available neomycin 3.5 mg/g-polymy eren B 10,000 unit/g-dexa meth 0.1 % eye oint APPLY A SMALL AMOUNT TO EYELID MARGIN OF BOTH EYES AT BEDTIME FOR 10 DAYS active Not Available Not Available No t Available sildenafil active Not Available Not Av ailable Not Available Prilosec active Not Available Not Avai lable Not Available metformin active Not Available Not Rachael ilable Not Available FreeStyle Lite Strips USE TO CHECK FASTING BLOOD SUGAR IN AM AND RANDOM BLOOD SUGAR DURING THE DAY. active Not Available Not Available No t Available diclofenac 1 % topical gel APPLY 2 GRAMS TO THE AFFECTED AREA(S) BY TOPICAL ROUTE 4 TIMES PER DAY active pill Not Available Not Available No t Available GaviLyte-G 236 gram-22.74 gram-6.74 gram-5.86 gram oral solution PLEASE SEE ATTACHED FOR DETAILED DIRECTION S active Not Available Not Available No t Available COVID-19 At-Home Test kit FOLLOW INSTRUCTI ONS INCLUDED WITH THE PACKAGE. active Not Available Not Available No t Available Vitals Date Recorded Body height Provider Name an d Address Organization Details Last Updated DateTime 01/17/2023 187.96 cm YAMILET YOUNGEY PA - [facility] 0 01/17/2023 08:18:45 Date Recorded Body mass index (BMI) Body weight Provider Name and Address Organization Details Last Updated DateTime 01/17/2023 41.1 kg/m2 244325.56 g YAMILET SANTILLAN PA - [facility] 01/17/2023 08:18:51 Date Recorded Pain severity - 0-10 verbal numeric rating [Score] - Reported Provider Name and Address Organization Details Last Updated DateTime 01/17/2023 0 YAMILETELLEN YOUNGEY PA - [facility] 0 01/17/2023 08:18:55 Date Recorded Respiratory rate Provider Name a nd Address Organization Details Last Updated DateTime 01/17/2023 20 /min YAMILETELLEN SANTILLAN PA - [facility] 0 01/17/2023 08:20:51 Date Recorded Oxygen saturation Oxygen saturation in Arterial blood by Pulse oximetry Provider Name and Address Organization Details Last Updated DateTime 01/17/2023 98 % 98 % YAMILET YOUNGEY PA - [facility] 01/17/2023 08:20:57 Date Recorded Heart rate Provider Name an d Address Organization Details Last Updated DateTime 01/17/2023 74 /min YAMILET SANTILLAN PA - [facility] 0 01/17/2023 08:20:58 Date Recorded Body temperature Provider Name a nd Address Organization Details Last Updated DateTime 01/17/2023 98.6 [degF] YAMILET SANTILLAN PA - [facility] 01/17/2023 08:21:26 Date Recorded Body height Provider Name an d Address Organization Details Last Updated DateTime 09/15/2022 187.96 cm MICHELE DEPINTO PA - [facility] 0 09/15/2022 15:22:28 Date Recorded Body mass index (BMI) Body weight Provider Name and Address Organization Details Last Updated DateTime 09/15/2022 41.1 kg/m2 576237.56 g MICHELE DEPINTO PA - [facility] 09/15/2022 15:22:33 Date Recorded Pain severity - 0-10 verbal numeric rating [Score] - Reported Provider Name and Address Organization Details Last Updated DateTime 09/15/2022 6 MICHELE DEPINTO PA - [facility] 0 09/15/2022 15:22:35 Date Recorded Body temperature Provider Name a nd Address Organization Details Last Updated DateTime 09/15/2022 97.2 [degF] MICHELE DEPINTO PA - [facility] 09/15/2022 15:27:38 Date Recorded Respiratory rate Provider Name a nd Address Organization Details Last Updated DateTime 09/15/2022 19 /min MICHELE DEPINTO PA - [facility] 0 09/15/2022 15:27:40 Date Recorded Heart rate Provider Name an d Address Organization Details Last Updated DateTime 09/15/2022 69 /min MICHELE DEPINTO PA - [facility] 0 09/15/2022 15:27:44 Date Recorded Oxygen saturation Oxygen saturation in Arterial blood by Pulse oximetry Provider Name and Address Organization Details Last Updated DateTime 09/15/2022 98 % 98 % MICHELE DEPINTO PA - [facility] 09/15/2022 15:27:47 Date Recorded Systolic blood pressure Diastolic blood pressure Provider Name and Address Organization Details Last Updated DateTime 01/17/2023 132 mm[Hg] 88 mm[Hg] YAMILET SANTILLAN PA - [facility] 01/17/2023 08:21:01 Date Recorded Systolic blood pressure Diastolic blood pressure Provider Name and Address Organization Details Last Updated DateTime 09/15/2022 151 mm[Hg] 88 mm[Hg] MICHELE DEPINTO PA - [facility] 09/15/2022 15:27:51 Social History Question Answer Notes LastModified by Organizat ion Details LastModified Time Tobacco Smoking Status Current Some Day Smoker AVANI Baltazar - [facility] 09/15/2022 15:24:58 What Is Your Level Of Alcohol Consumption? Occasional Information not available 09/15/2022 How Many Times Per Week Do You Consume Alcohol? <1 Time Per Week Information not available 09/15/2022 How Much Tobacco Do You Smoke? 1 PPD Information not available 09/15/2022 Do You Use Any Illicit Or Recreational Drugs? No Information not available 09/15/2022 Have You Recently Traveled Abroad? No Information not available 09/15/2022 Do You Or Have You Ever Used Any Other Forms Of Tobacco Or Nicotine? No Information not available 09/15/2022 Sex: Unknown Functional Status None recorded. Mental Status None recorded. Family History Relationship Description Onset Age of this Age Resolved Age Notes LastModified by Organization Details LastModified Time Mother Multiple sclerosis Not available 2022 15:24:36 Medical History No medical history recorded. Past Encounters Encounter ID Performer Location Encounter Start Date Encounter Closed Date Diagnosis/Indication Diagnosis SNOMED-CT Code Diagnosis ICD10 Code Diagnosis Note [id number] [address] [place] [address] 06/22/2020 11:20:48 06/22/2020 12:04:15 [id number] [address] [place] [address] 04/26/2021 18:10:23 04/26/2021 20:00:01 [id number] [address] [place] [address] 10/05/2017 08:45:35 10/05/2017 09:10:52 [id number] [address] [place] [address] 06/16/2018 08:13:36 06/16/2018 08:41:58 [id number] [address] [place] [address] 06/14/2018 08:04:50 06/14/2018 08:40:24 [id number] [address] [facility] [place] [address] 10/03/2020 17:58:01 10/03/2020 19:06:40 [id number] [address] [facility] [place] [address] 02/16/2018 18:37:52 02/16/2018 20:00:02 [id number] [address] [facility] [place] [address] 09/26/2019 08:07:29 09/26/2019 08:26:12 [id number] [address] [facility] [place] [address] 09/22/2017 11:07:15 09/22/2017 11:54:30 [id number] [address] [facility] [place] [address] 10/07/2017 08:59:28 10/07/2017 10:27:14 [id number] AVANI JOYCE [address] [facility] [place] [address] 09/15/2022 10:59:06 09/15/2022 15:53:02 Acute conjunctivitis of left eye 3418114690 68738 H10.32 Hordeolum externum of lower eyelid of left eye 2316303023 35306 H00.015 [id number] Vane Alvarez MD [address] [facility] [place] [address] 01/17/2023 08:06:52 01/17/2023 08:37:10 Acute bronchitis 71992325 J20.9 Health Concerns Section Related Observation LastModified by Organization Detai ls LastModified Time None Recorded Concern Status LastModified by Organization Details LastModified Time None Recorded Advance Directives Directive None Recorded Payers Encounter Date Sequence Insurance Name Policy Number Policy Pascual Covered Member ID Pascual Member ID Guarantor Name 10/03/2020 1 [facility] Jarrett Moore [id number] Jarrett Moore 04/26/2021 1 [facility] Jarrett Moore [id number] Jarrett Moore 09/15/2022 1 [facility] Jarrett Moore [id number] Jarrett Moore 01/17/2023 1 [facility] ([facility]) Jarrett Moore [id number] Jarrett Moore Notes Date Note Type Note Provider Name and Address Organization Details Recorded Time 09/15/2022 text/html Jarrett is a 51 yo M here for evaluation of left eye redness, irritation, pain and itching x yesterday. + discharge. + stye to the left lower eye lid as well. No contact lens use. No vision changes. Has been applying warm tea bags to the eyelid. AVANI CRUMP [address] [place], [address], [facility] 09/15/2022 16:44:34 01/17/2023 text/html Sinus Complaints UCReported bypatient.Location: sinus pain;facial pain;sinus pressure Associated Symptoms:no fever; no nausea or vomiting; no sore throat; no ear fullness; no nasal itching; no eye itching; no dizziness;difficult y breathing;Post nasal drip;nasal passage blockage;cough Onset/Timing:worse in am; worse in pm Quality:minimal discomfort;worsenin g; clear Duration:frequent Severity:moderate Context:no recent upper respiratory infection; no recent sick contacts; not worse with seasonal allergen exposure;worse with environmental exposure Risk Factors:no current smoking or tobacco use; no history of nasal trauma Alleviating factors:oral steroids Aggravating factors:worse during an upper respiratory infection (a cold); worse with excess fatigue Prior Treatmentoral decongestant Long Us NP [address] [place], [address], [place] [facility] 01/17/2023 08:31:49
== END 2024-10-04 07:35 | disposition home or self-care (01) ==
LOC: HO.CT 07:34
PROVIDERS: PCP Nurse Practitioner Family; Visit Provider Physician Assistant Medical
DX: R91.1 Solitary pulmonary nodule (principal); F17.210 Nicotine dependence, cigarettes, uncomplicated
CPT/HCPCS: 71250

== ENCOUNTER → 2024-10-04 07:36 | Outpatient (BNV) | payer OTHER, SELFPAY | PROVIDERS: PCP Nurse Practitioner Family; Visit Provider Radiology Diagnostic Radiology | DX: R91.1 Solitary pulmonary nodule (principal) | CPT/HCPCS: 71250 ==

== ENCOUNTER 2024-10-15 08:01 | Outpatient (AMB) | payer OTHER, SELFPAY ==
[2024-10-15 08:02] VITALS: BP 128/78; PULSE 83; TEMP 36.6; O2SAT 97; BMI 42.6
--- NOTE | 2024-10-15 08:02 | AM.OFFWIN_ITS ---
Intake Vital Signs 3 10/15/24 08:02 Height 6 ft 2 in Weight 332 lb BMI 42.6 BP 128/78 Blood Pressure Location Rt brachial Position Sitting Pulse 83 Pulse Source Pulse Oximeter Temp 97.8 F Temp Source Oral Pulse Oximetry (%) 97 Intake Visit Reasons: EP-anxious, light head, rt side cyst Intake Note: pt is here for c/o anxiety with light headed feeling. patient states he has a right side cyst on face also. Patient Tobacco Use Status: Current everyday Tobacco user Allergies No Known Allergies [No Known Allergies*] Allergy (Verified 10/15/24 08:03) Do you need a note to return to daycare/school/sports/work: Yes HPI HPI Comments 2 History of Present Illness0 Details 54 y/o male patient who presents to the walk in clinic with chest pains, palpitations and SOB for few days now. Pt is a chronic smoker. Had CT Lung 10/04/24 that showed a 9 mm nodule left lower lobe axial image 45/4, stable. No additional nodule seen. Pt also c/o small abscess on his right cheek for few days now that is painful and draining yellow discharge. [facility] Medical History (Updated 10/15/24 @ 08:45 by Tasha Garcia NP) Facial abscess Heart palpitations Chest pain Cholelithiasis H/O splenomegaly Hepatomegaly Heart murmur Dyslipidemia Diabetes mellitus GERD (gastroesophageal reflux disease) Fatty liver Tubular adenoma of colon Splenomegaly Nicotine dependence, cigarettes, uncomplicated PONV (postoperative nausea and vomiting) Morbid obesity Erectile dysfunction Refused pneumococcal vaccination Surgical History History of colonoscopy History of ventricular septal defect repair History of umbilical hernia repair (~11/2021) History of surgery on extremity Family History Father No problems noted. Father Substance use disorder Mother Substance use disorder Maternal Uncle Substance use disorder Sister Substance use disorder Social History Housing: House Alcohol intake: current Alcohol intake frequency: holidays/special occasions only Patient Tobacco Use Status: Current everyday Tobacco user Tobacco use type: Cigarette Cigarettes Per Day: 15 Years Smoked: 25 e-Cigarette/Vaping Use: Never Used Second Hand Smoke Exposure: Yes service: No Current occupational status: employed Current occupation: [employer] Current occupational exposures/hazards: No Cognitive needs: No Hearing needs: No Vision needs: Yes Review of Systems Const All systems reviewed & are unremarkable except as noted in HPI and below Physical Exam Vital Signs: Last Vital Signs Temp 97.8 F 10/15/24 08:02 Pulse 83 10/15/24 08:02 BP 128/78 10/15/24 08:02 Pulse Ox 97 10/15/24 08:02 BMI result Body Mass Index 42.6 Const General: cooperative and no acute distress Nutritional Appearance: obese Orientation/consciousness: patient oriented x3 HEENT Head: Yes normocephalic Ears: external ears normal and TM abnormal with fluid behind the TM General nose exam: No nasal discharge present Face and sinus: Yes sinuses nontender Face images: 2 1. Small Red Abscess right cheek, with yellow crusting center and brownish/yellowish discharge. Mouth: moist mucous membranes Resp Effort & Inspection: normal respiratory effort, able to speak in complete sentences, no audible wheezes and no cough Auscultation: no crackles, no rales, no rhonchi and wheezes inspiratory wheezes and right upper Cardio Jugular venous distension: no JVD Rate: regular rate Heart sounds: S1 normal heart sound present, S2 normal heart sound present, no gallops, no murmurs and no rubs Neuro General: patient oriented x3, gait normal and moves all extremities Psych Speech and movement: Normal speech and movement present Assessment & Plan Assessment & Plan (1) Chest pain: Code(s): R07.9 - Chest pain, unspecified Qualifiers: Chest pain type: unspecified Qualified Code(s): R07.9 - Chest pain, unspecified Plan: ordered EKG - Sinus Rhythm Advised to go to ED if symptoms worse F/U with PCP. (2) Heart palpitations: Code(s): R00.2 - Palpitations Plan: ordered EKG - Sinus Rhythm Advised to go to ED if symptoms worse F/U with PCP. (3) Facial abscess: Code(s): L02.01 - Cutaneous abscess of face Plan: Ordered Keflex Plan ordered EKG - Sinus Rhythm Advised to go to ED if symptoms worse F/U with PCP. Orders: Orders 2 AMB EKG-In Office Today R00.2 - Palpitations, R07.9 - Chest pain, unspecified Medications: New 2 cephalexin 500 mg PO BID 7 days 14 caps 0RF L02.01 - Cutaneous abscess of face Coding Level of Care Code Est Pt Level 4 (39641) Diagnoses Chest pain, unspecified type R07.9 Chest pain type: unspecified Heart palpitations R00.2 Facial abscess L02.01 Time Spent (min) 20
--- OUTSIDE RECORDS SUMMARY | 2024-10-15 08:04 | XMS_ITS | Data Portability ---
Author Organization [facility] Jim[facility], [address] Address [address] [place] [address] Care Team Providers Care Operations Specialist Name Role Phone [facility] Primary Care Provider [phone] Assessment No assessment recorded. Plan of Treatment Reminders Order Date Submit Date Provider Last Modified By Organization Details Last Modified Time Details Appointments None recorded. Lab None recorded. Referral None recorded. Procedures None recorded. Surgeries None recorded. Imaging None recorded. Medication Orders Polytrim 10,000 unit-1 mg/mL eye drops 2022 023 [email or web address] [facility]/Pharmacy #0693, [address] [place], [address], 3 08:19:30 erythromyci n 5 mg/gram (0.5 %) eye ointment 2022 023 [facility] [address] [place], [address], 3 08:19:27 prednisone 20 mg tablet 2022 023 [facility] [address] [place], [address], 3 08:31:44 albuterol sulfate HFA 90 mcg/actuati on aerosol inhaler 2022 023 [facility] [address] [place], [address], 3 08:31:43 benzonatate 200 mg capsule 2022 023 [facility]/Pharmacy #0693, [address] [facility] [place], [address], 3 08:31:44 Allergy Relief (fluticason e) 50 mcg/actuati on nasal spray,suspe nsion 2022 023 [facility]/Pharmacy #0693, [address] [place], [address], 3 08:31:44 Patient TargetsNo targets recorded. Patient Instructions Encounter Date Encounter Id Patient Instructions Last Modified By Organization Details Last Modified Time 09/15/2022 [id number] franchescae: care instructions sghohestanib Not available 09/15/2022 [...] you! sghohestanib Not available 09/15/2022 15:40:09 01/17/2023 [id number] Patient instruct ed on worsening signs and [...] Address Organization Details Recorded Time Hypercholestero lemia 08724625 Active 2022 MICHELE DEPINTO null, PA - [facility] 3 15:24:10 Diabetes mellitus 41873104 Active 2022 MICHELE DEPINTO null, PA - [facility] 3 15:24:14 Heart murmur 50371830 Active 2022 MICHELE DEPINTO null, PA - [...] Details Last Updated DateTime 01/17/2023 41.1 kg/m2 576902.56 g YAMILET SANTILLAN PA - [facility] [...] Details Last Updated DateTime 09/15/2022 41.1 kg/m2 040069.56 g MICHELE DEPINTO PA - [facility] [...] SNOMED-CT Code Diagnosis ICD10 Code Diagnosis Note [id number] [address] [place] [address] 06/22/2020 11:20:48 06/22/2020 12:04:15 [id number] [address] [place] [address] 04/26/2021 18:10:23 04/26/2021 20:00:01 [id number] [address] [place] [address] 10/05/2017 08:45:35 10/05/2017 09:10:52 [id number] [address] [place] [address] 06/16/2018 08:13:36 06/16/2018 08:41:58 [id number] [address] [place] [address] 06/14/2018 08:04:50 06/14/2018 08:40:24 [id number] [address] [facility] [place] [address] 10/03/2020 17:58:01 10/03/2020 19:06:40 [id number] [address] [facility] [place] [address] 02/16/2018 18:37:52 02/16/2018 20:00:02 [id number] [address] [facility] [place] [address] 09/26/2019 08:07:29 09/26/2019 08:26:12 [id number] [address] [facility] [place] [address] 09/22/2017 11:07:15 09/22/2017 11:54:30 [id number] [address] [facility] [place] [address] 10/07/2017 08:59:28 10/07/2017 10:27:14 [id number] AVANI JOYCE [address] [facility] [place] [address] 09/15/2022 10:59:06 09/15/2022 15:53:02 Acute conjunctivitis of left eye 7793342144 52503 H10.32 Hordeolum externum of lower eyelid of left eye 7389899722 68559 H00.015 [id number] Vane Alvarez MD [address] [facility] [place] [address] 01/17/2023 08:06:52 01/17/2023 08:37:10 Acute bronchitis 27137365 J20.9 Health Concerns Section Related Observation LastModified by Organization Detai ls LastModified Time None Recorded Concern Status LastModified by Organization Details LastModified Time None Recorded Advance Directives Directive None Recorded Payers Encounter Date Sequence Insurance Name Policy Number Policy Pascual Covered Member ID Pascual Member ID Guarantor Name 10/03/2020 1 [facility] Jarrett Moore [id number] Jarrett Moore 04/26/2021 1 [facility] Jarrett Moore [id number] Jarrett Moore 09/15/2022 1 [facility] Jarrett Moore [id number] Jarrett Moore 01/17/2023 1 [facility] (PPO) Jarrett Moore [id number] Jarrett Moore Notes Date Note Type [...] eyelid. AVANI CRUMP [address] [place], [address], [employer] 09/15/2022 16:44:34 01/17/2023 text/html Sinus Complaints UCReported [...] Long Us NP [address] [place], [address], [place] [facility] 01/17/2023 08:31:49
--- OUTSIDE RECORDS SUMMARY | 2024-10-15 08:04 | XMS_ITS | Clinical Summary ---
Author Organization [facility] Facility Address [address] [place] [address] Care Team Providers Care Waste Water Worker Name Role Phone Homero Car NP Primary Care Provider [phone] Allergies No known active allergies Medications diclofenac (VOLTAREN) 75 MG EC tablet Take 75 mg by mouth 2 (two) times a day Do not crush, chew, or split. Active omeprazole (PriLOSEC) [address] capsule Take 20 mg by mouth 1 (one) time each day Do not crush or chew. Active sildenafil (VIAGRA) 100 MG tablet TAKE 1 TABLET BY MOUTH EVERY DAY NEEDED FOR SEXUAL ACTIVITY 11/13/2020 Active Chantix 0.5 MG tablet TAKE 1 TABLET BY MOUTH TWICE A DAY ON DAYS 4,5,6 OF THERAPY 12/27/2020 Active metFORMIN (GLUMETZA) 500 MG 24 hr tablet Take 500 mg by mouth 1 (one) time each day with dinner Do not crush, chew, or split. Active Active Problems Problem Noted Date Diagnosed Date Type 2 diabetes mellitus wit h diabetic autonomic (poly)neuropathy 01/18/2021 Resolved Problems Problem Noted Date Diagnosed Date Resolved Date Type 1 diabetes mellitus wit h diabetic neuropathy 01/18/2021 01/18/2021 Social History Tobacco Use Types Packs/Day Years Used Date Smoking Tobacco: Never Assessed Sex and Gender Information Value Date Recorded Sex Assigned at Not on file Legal Sex Male 11:39 AM EDT Gender Identity Not on file Sexual Orientation Not on file Last Filed Vital Signs Vital Sign Reading Time Taken Comments Blood Pressure 139/80 01/19/2021 10:09 AM EDT Pulse 69 01/19/2021 10:09 AM EDT Temperature - - Respiratory Rate - - Oxygen Saturation 96% 01/19/2021 10:09 AM EDT Inhaled Oxygen Concentration - - Weight 154 kg (339 lb 3.2 oz) 01/19/2021 10:09 A M EDT Height - - Body Mass Index - - Plan of Treatment Health Maintenance Due Date Last Done Comments Pneumococcal Vaccine: Pediat rics (0 to 5 Years) and At-Risk Patients (6 to 64 Years) (1 of 2 - PCV) 1975 Hepatitis B Vaccine (1 of 3 - 19+ 3-dose series) 09/17 Colorectal Cancer Screening: Annual FOBT 2018 Colorectal Cancer Screening: Colonoscopy 2018 Colorectal Cancer Screening: Sigmoidoscopy 2018 Diabetes: Hemoglobin A1C 01/18/2021 Diabetes: Ophthalmology Exam 01/18/2021 Diabetes: Pedal Pulse Checked 01/18/2021 Diabetes: Sensory Foot Exam 01/18/2021 Diabetes: Visual Foot Exam 01/18/2021 Influenza Vaccine (#1) 2024 Insurance BO COLBY BO COLBY Care Teams Waste Water Worker Relationship Specialty Start Date End Date Homero Car NP [address] [place] [address] PCP - General Nurse Practitioner 01/17/21
== END 2024-10-15 08:56 | disposition home or self-care (01) ==
PROVIDERS: PCP Nurse Practitioner Family; Visit Provider Nurse Practitioner Family
DX: R07.9 Chest pain, unspecified (principal); R00.2 Palpitations; L02.01 Cutaneous abscess of face

== ENCOUNTER → 2024-10-15 08:01 | Outpatient (BNVA) | payer OTHER, SELFPAY | PROVIDERS: PCP Nurse Practitioner Family | DX: R07.9 Chest pain, unspecified (principal); R00.2 Palpitations; L02.01 Cutaneous abscess of face | CPT/HCPCS: 93005 ==

== ENCOUNTER 2024-11-11 08:01 | Outpatient (REF) | payer OTHER, SELFPAY ==
--- OUTSIDE RECORDS SUMMARY | 2024-11-11 08:51 | XMS_ITS | Clinical Summary ---
Author Organization [facility] Facility Address [address] [place] [address] Care Team Providers Care Zmt Operator Name Role Phone Homero Car NP Primary Care Provider [phone] Allergies No known active allergies Medications diclofenac [...] to complete this topic Insurance BO COLBY TRAM COLBY Care Teams Zmt Operator Relationship Specialty Start Date End Date Homero Car NP [address] [place] [address] PCP - General Nurse Practitioner 01/17/21
[2024-11-11 12:54] LABS: Influenza A PCR NEGATIVE (Negative); Influenza B PCR NEGATIVE (Negative); Resp Syncy Virus RNA Qual PCR NEGATIVE (Negative); SARS COV2 PCR INHOUSE NEGATIVE (Negative)
== END 2024-11-11 08:02 | disposition home or self-care (01) ==
LOC: HO.LAB 08:01
PROVIDERS: PCP Nurse Practitioner Family; Visit Provider Nurse Practitioner Family
DX: J06.9 Acute upper respiratory infection, unspecified (principal); R05.1 Acute cough; R06.2 Wheezing
CPT/HCPCS: 0241U; 94640

== ENCOUNTER 2024-11-11 08:01 | Outpatient (AMB) | payer OTHER, SELFPAY ==
--- OUTSIDE RECORDS SUMMARY | 2024-11-11 08:08 | XMS_ITS | Clinical Summary ---
Author Organization [facility] Facility Address [address] [place] [address] Care Team Providers Care Senior Net Software Engineer Name Role Phone Homero Car NP Primary Care Provider [phone] Allergies No known active allergies Medications diclofenac [...] Health Maintenance Due Date Last Done Comments Hepatitis B Vaccine (1 of 3 - 19+ 3-dose series) 1988 Colorectal Cancer Screening: Annual FOBT 2018 Colorectal Cancer Screening: Colonoscopy 2018 Colorectal Cancer Screening: Sigmoidoscopy 2018 Diabetes: Hemoglobin A1C 01/18/2021 Diabetes: Ophthalmology Exam 01/18/2021 Diabetes: Pedal Pulse Checked 01/18/2021 Diabetes: Sensory Foot Exam 01/18/2021 Diabetes: Visual Foot Exam 01/18/2021 Influenza Vaccine (#1) 2024 Pneumococcal Vaccine: Pediat rics (0 to 5 Years) and At-Risk Patients (6 to 64 Years) Aged Out No longer eligible b ased on patient's age to complete this topic Insurance BO COLBY HARRISON COLBY Care Teams Senior Net Software Engineer Relationship Specialty Start Date End Date Homero Car NP [address] [place] [address] PCP - General Nurse Practitioner 01/17/21
--- OUTSIDE RECORDS SUMMARY | 2024-11-11 08:08 | XMS_ITS | Data Portability ---
Author Organization AV[facility] Jimenez [facility], [address] Address [address] [place] [address] Care Team Providers Care Physician Assistant Psychiatry Name Role Phone [facility] Primary Care Provider Assessment No assessment recorded. Plan of Treatment Reminders Order Date Submit Date Provider Last Modified By Organization Details Last Modified Time Details Appointments None recorded. Lab None recorded. Referral None recorded. Procedures None recorded. Surgeries None recorded. Imaging None recorded. Medication Orders prednisone 20 mg tablet 2022 023 [facility]armacy #0693, [address] [place], [address], 3 08:31:44 albuterol sulfate HFA 90 mcg/actuati on aerosol inhaler 2022 023 [facility] [address] [place], [address], 3 08:31:43 benzonatate 200 mg capsule 2022 023 [facility] [address] [place], [address], 3 08:31:44 Allergy Relief (fluticason e) 50 mcg/actuati on nasal spray,suspe nsion 2022 023 [facility]/Pharmacy #0693, [address] [place], [address], 3 08:31:44 Polytrim 10,000 unit-1 mg/mL eye drops 2022 023 [facility]/Pharmacy #0693, [address] [facility] [place], [address], 3 08:19:30 erythromyci n 5 mg/gram (0.5 %) eye ointment 2022 023 [facility] #0693, [address] [facility] [place], [address], 3 08:19:27 Patient TargetsNo targets recorded. Patient Instructions Encounter Date Encounter Id Patient Instructions Last Modified By Organization Details Last Modified Time 09/15/2022 [id number] franchescae: care instructions sghohestanib Not available 09/15/2022 15:40:10 deven and ирина: care instructions sghohestanib Not available 09/15/2022 15:40:10 [...] you! sghohestanib Not available 09/15/2022 15:40:09 01/17/2023 [id number] Patient instruct ed on worsening signs and [...] Address Organization Details Recorded Time Hypercholestero lemia 75540601 Active 2022 MICHELE DEPINTO null, PA - [facility] 3 15:24:10 Diabetes mellitus 20705317 Active 2022 MICHELE DEPINTO null, PA - [facility] 3 15:24:14 Heart murmur 33457780 Active 2022 MICHELE DEPINTO null, PA - [...] t Available Vitals Date Recorded Body height Body mass index (BMI) Body weight Pain severity - 0-10 verbal numeric rating [Score] - Reported Respiratory rate Oxygen saturation Oxygen saturation in Arterial blood by Pulse oximetry Heart rate Body temperature Systolic blood pressure Diastolic blood pressure Provider Name and Address Organization Details Last Updated DateTime 3 187.96 cm 41.1 kg/m2 427419. 56 g 0 20 /min 98 % 98 % 74 /min 98.6 [degF] 132 mm[Hg] 88 mm[Hg] YAMILET VARMA - [facility] 3 08:21:01 Date Recorded Body height Body mass index (BMI) Body weight Pain severity - 0-10 verbal numeric rating [Score] - Reported Body temperature Respiratory rate Heart rate Oxygen saturation Oxygen saturation in Arterial blood by Pulse oximetry Systolic blood pressure Diastolic blood pressure Provider Name and Address Organization Details Last Updated DateTime 3 187.96 cm 41.1 kg/m2 993761. 56 g 6 97.2 [degF] 19 /min 69 /min 98 % 98 % 151 mm[Hg] 88 mm[Hg] MICHELE GODWIN PA - [facility] 3 15:27:51 Social History Question Answer Notes LastModified by Organizat ion Details LastModified Time Tobacco Smoking Status Current Some Day Smoker MICHELE nelson PA Evi [facility] 09/15/2022 15:24:58 What Is Your [...] SNOMED-CT Code Diagnosis ICD10 Code Diagnosis Note [id number] [address] [facility] [address] 06/22/2020 11:20:48 06/22/2020 12:04:15 [id number] [address] [place], [place] [address] [place] [address] 04/26/2021 18:10:23 04/26/2021 20:00:01 [id number] [address] [place] [address] [place] [address] 10/05/2017 08:45:35 10/05/2017 09:10:52 [id number] [address] [place] [address] [place] [address] 06/16/2018 08:13:36 06/16/2018 08:41:58 [id number] [address] [facility] [address] 06/14/2018 08:04:50 06/14/2018 08:40:24 [id number] [address] [facility] [address] 10/03/2020 17:58:01 10/03/2020 19:06:40 [id number] [address] [facility] [address] 02/16/2018 18:37:52 02/16/2018 20:00:02 [id number] [address] [place] [address] 09/26/2019 08:07:29 09/26/2019 08:26:12 [id number] [address] [facility] [address] 09/22/2017 11:07:15 09/22/2017 11:54:30 [id number] [address] [place] [address] 10/07/2017 08:59:28 10/07/2017 10:27:14 [id number] AVANI JOYCE [address] [place] [address] 09/15/2022 10:59:06 09/15/2022 15:53:02 Acute conjunctivitis of left eye 9987646119 83231 H10.32 Hordeolum externum of lower eyelid of left eye 0969915549 04923 H00.015 [id number] Vane Alvarez MD [address] [place] [address] 01/17/2023 08:06:52 01/17/2023 08:37:10 Acute bronchitis 43073828 J20.9 Health Concerns Section Related Observation LastModified by Organization Detai ls LastModified Time None Recorded Concern Status LastModified by Organization Details LastModified Time None Recorded Advance Directives Directive None Recorded Payers Encounter Date Sequence Insurance Name Policy Number Policy Pascual Covered Member ID Pascual Member ID Guarantor Name 10/03/2020 1 [employer] Jarrett Moore [id number] Jarrett Moore 04/26/2021 1 [employer] Jarrett Moore [id number] Jarrett Moore 09/15/2022 1 [employer] Jarrett Moore [id number] Jarrett Moore 01/17/2023 1 [employer] (PPO) Jarrett Moore [id number] Jarrett Moore Notes Date Note Type [...] eyelid. AVANI CRUMP [address] [place], [address], [email or web address] 09/15/2022 16:44:34 01/17/2023 text/html Sinus Complaints UCReported [...] Long Us NP [address] [place], [address], [facility] 01/17/2023 08:31:49
[2024-11-11 08:10] VITALS: BP 110/74; PULSE 64; TEMP 36.6; O2SAT 98
--- NOTE | 2024-11-11 08:10 | MHC.OFFWIV ---
Intake Vital Signs 11/11/24 08:10 Weight 327 lb BP 110/74 Blood Pressure Location Rt brachial Position Sitting Pulse 64 Pulse Source Pulse Oximeter Temp 97.9 F Temp Source Oral Pulse Oximetry (%) 98 Oxygen Delivery Method Room Air Intake Visit Reasons: EP Chest congestion, cough Intake Note: Patient here for chest congestion,nasal congestion, cough and wheezing that started Friday. Patient Tobacco Use Status: Current everyday Tobacco user Allergies No Known Allergies [No Known Allergies*] Allergy (Verified 11/11/24 08:14) Do you need a note to return to daycare/school/sports/work: Yes HPI HPI Comments History of Present Illness Details 54 y/o male patient who presents to the walk in clinic with c/o URI symptoms since last Friday. Reports Chest/nasal congestion, cough and wheezing. He was in [place], roman returned home from vacation. He is a chronic smoker. [facility] Medical History (Updated 11/11/24 @ 08:26 by Tasha Garcia NP) Wheezing on auscultation Acute respiratory disease Facial abscess Heart palpitations Chest pain Cholelithiasis H/O splenomegaly Hepatomegaly Heart murmur Dyslipidemia Diabetes mellitus GERD (gastroesophageal reflux disease) Fatty liver Tubular adenoma of colon Splenomegaly Nicotine dependence, cigarettes, uncomplicated PONV (postoperative nausea and vomiting) Morbid obesity Erectile dysfunction Refused pneumococcal vaccination Surgical History History of colonoscopy History of ventricular septal defect repair History of umbilical hernia repair (~11/2021) History of surgery on extremity Family History Father No problems noted. Father Substance use disorder Mother Substance use disorder Maternal Uncle Substance use disorder Sister Substance use disorder Social History Housing: House Alcohol intake: current Alcohol intake frequency: holidays/special occasions only Patient Tobacco Use Status: Current everyday Tobacco user Tobacco use type: Cigarette Cigarettes Per Day: 15 Years Smoked: 25 e-Cigarette/Vaping Use: Never Used Second Hand Smoke Exposure: Yes service: No Current occupational status: employed Current occupation: [employer] Current occupational exposures/hazards: No Cognitive needs: No Hearing needs: No Vision needs: Yes Review of Systems Const All systems reviewed & are unremarkable except as noted in HPI and below Physical Exam Vital Signs: Last Vital Signs Temp 97.9 F 11/11/24 08:10 Pulse 64 11/11/24 08:10 BP 110/74 11/11/24 08:10 Pulse Ox 98 11/11/24 08:10 Oxygen Delivery Method Room Air 11/11/24 08:10 Const General: cooperative and no acute distress Nutritional Appearance: obese Orientation/consciousness: patient oriented x3 Resp Effort & Inspection: normal respiratory effort, able to speak in complete sentences and Actively coughing Auscultation: no crackles, no rales, rhonchi and wheezes Cardio Heart sounds: S1 normal heart sound present and S2 normal heart sound present Neuro General: patient oriented x3 Office Procedures Nebulizer Treatment Nebulizer Treatment 34177-Iodlymcmp/MDI RX initial, or Nebulizer Subsequent Treatment Office Meds ipratropium 0.5 mg-albuterol 3 mg (2.5 mg base)/3 mL nebulization soln Performing Provider: Tasha Garcia NP Performing Location: [facility] Administered by: Tasha Garcia NP on 11/11/24 08:26 Dose Route Admin Location Dispensed Lot Number Expiration Date [facility] Silver[employer] Supervisor 3 mL inhalation 3 mL 11/12/25 Assessment & Plan Assessment & Plan (1) Acute respiratory disease: Code(s): J06.9 - Acute upper respiratory infection, unspecified Plan: Advised Smoke cessation. Ordered Neb in Office Ordered Abx and steroids. Rest and hydrate well. (2) Cough: Code(s): R05.9 - Cough, unspecified Qualifiers: Cough type: acute Qualified Code(s): R05.1 - Acute cough Plan: OTC cough remedies. Ordered SARs. (3) Wheezing on auscultation: Code(s): R06.2 - Wheezing Plan: Ordered Albuterol inhaler. Orders: Orders SARS-CoV2/FLU/RSV Today J06.9 - Acute upper respiratory infection, unspecified AMB Nebulizer Treatment Today J06.9 - Acute upper respiratory infection, unspecified, R05.1 - Acute cough, R06.2 - Wheezing Medications: New doxycycline hyclate 100 mg PO BID 20 caps 0RF 10 days R05.1 - Acute cough, R06.2 - Wheezing prednisone 50 mg PO DAILY 5 tabs 0RF 5 days R05.1 - Acute cough, R06.2 - Wheezing benzonatate 200 mg (2 x 100 mg) PO TID 90 caps 0RF cough R05.1 - Acute cough albuterol sulfate 90 mcg/actuation 2 puffs inhalation Q4-6H PRN 6.7 grams 0RF shortness of breath or wheezing R06.2 - Wheezing Coding Level of Care Code Est Pt Level 4 (46810) Diagnoses Acute respiratory disease J06.9 Acute cough R05.1 Cough type: acute Wheezing on auscultation R06.2 CPT Codes Nebulizer Treatment - Nebulizer Treatment, initial or subsequent: 30454-Qtbmitxyl/MDI RX initial, or Nebulizer Subsequent Treatment ([id number]) Time Spent (min) 20
== END 2024-11-11 08:38 | disposition home or self-care (01) ==
PROVIDERS: PCP Nurse Practitioner Family; Visit Provider Nurse Practitioner Family
DX: J06.9 Acute upper respiratory infection, unspecified (principal); R06.2 Wheezing; R05.1 Acute cough

== ENCOUNTER 2024-11-18 07:25 | Outpatient (AMB) | payer OTHER, SELFPAY ==
--- OUTSIDE RECORDS SUMMARY | 2024-11-18 07:27 | XMS_ITS | Data Portability ---
Author Organization [facility], [address] Address [address] [place] [address] Care Team Providers Care Intensive Care Anaesthetist Name Role Phone [facility] Primary Care Provider Assessment No assessment recorded. Plan of Treatment Reminders Order Date Submit Date Provider Last Modified By Organization Details Last Modified Time Details Appointments None recorded. Lab None recorded. Referral None recorded. Procedures None recorded. Surgeries None recorded. Imaging None recorded. Medication Orders prednisone 20 mg tablet 2022 023 [facility]armacy #[id number], [address] [place], [address], 3 08:31:44 albuterol sulfate HFA 90 mcg/actuati on aerosol inhaler 2022 023 [id number] [address] [place], [address], 3 08:31:43 benzonatate 200 mg capsule 2022 023 [id number] [address] [place], [address], 3 08:31:44 Allergy Relief (fluticason e) 50 mcg/actuati on nasal spray,suspe nsion 2022 023 [facility]/Pharmacy #[id number], [address] [place], [address], 3 08:31:44 Polytrim 10,000 unit-1 mg/mL eye drops 2022 023 [email or web address] [facility]/Pharmacy #[id number], [address] [facility] [place], [address], 3 08:19:30 erythromyci n 5 mg/gram (0.5 %) eye ointment 2022 023 [facility] #[id number], [address] [facility] [place], [address], 3 08:19:27 Patient TargetsNo targets recorded. Patient Instructions Encounter Date Encounter Id Patient Instructions Last Modified By Organization Details Last Modified Time 09/15/2022 [id number] franchescae: care instructions [email or web address] Not available 09/15/2022 [...] you! [email or web address] Not available 09/15/2022 15:40:09 01/17/2023 [id number] Patient instruct ed on worsening signs and [...] Address Organization Details Recorded Time Hypercholestero lemia 13451446 Active 2022 MICHELE DEPINTO null, [place] - [facility] 3 15:24:10 Diabetes mellitus 36820443 Active 2022 MICHELE DEPINTO null, [place] - [facility] 3 15:24:14 Heart murmur 39743922 Active 2022 MICHELE DEPINTO null, [place] - [...] Updated DateTime 3 187.96 cm 41.1 kg/m2 770466. 56 g 0 20 /min 98 % [...] Updated DateTime 3 187.96 cm 41.1 kg/m2 117849. 56 g 6 97.2 [degF] 19 /min [...] SNOMED-CT Code Diagnosis ICD10 Code Diagnosis Note [id number] [address] [facility] [place] [place] [address] 06/22/2020 11:20:48 06/22/2020 12:04:15 [id number] [address] [place], [place] [address] [place] [address] 04/26/2021 18:10:23 04/26/2021 20:00:01 [id number] [address] [place] [address] [place] [address] 10/05/2017 08:45:35 10/05/2017 09:10:52 [id number] [address] [place] [address] [place] [address] 06/16/2018 08:13:36 06/16/2018 08:41:58 [id number] [address] [facility] [place] [address] 06/14/2018 08:04:50 06/14/2018 08:40:24 [id number] [address] [facility] [place] [address] 10/03/2020 17:58:01 10/03/2020 19:06:40 [id number] [address] [facility] [place] [address] 02/16/2018 18:37:52 02/16/2018 20:00:02 [id number] [address] [facility] [place] [place] [address] 09/26/2019 08:07:29 09/26/2019 08:26:12 [id number] [address] [facility] [place] [place] [address] 09/22/2017 11:07:15 09/22/2017 11:54:30 [id number] [address] [place] [address] 10/07/2017 08:59:28 10/07/2017 10:27:14 [id number] [facility] JOYCE [address] [place] [address] 09/15/2022 10:59:06 09/15/2022 15:53:02 Acute conjunctivitis of left eye [id number] 55355 H10.32 Hordeolum externum of lower eyelid of left eye [id number] 75507 H00.015 [id number] Vane Alvarez MD [address] [place] [address] 01/17/2023 08:06:52 01/17/2023 08:37:10 Acute bronchitis 33015241 J20.9 Health Concerns Section Related Observation LastModified by Organization Detai ls LastModified Time None Recorded Concern Status LastModified by Organization Details LastModified Time None Recorded Advance Directives Directive None Recorded Payers Encounter Date Sequence Insurance Name Policy Number Policy Pascual Covered Member ID Pascual Member ID Guarantor Name 10/03/2020 1 [employer] Jarrett Moore [id number] Jarrett Moore 04/26/2021 1 [employer] Jarrett Moore [id number] Jarrett Moore 09/15/2022 1 [employer] Jarrett Moore [id number] Jarrett Moore 01/17/2023 1 [employer] (PPO) Jarrett Moore [id number] Jarrett Moore Notes Date Note Type [...] eyelid. [facility] CRUMP [address] [place], [phone], [facility] 09/15/2022 16:44:34 01/17/2023 text/html Sinus Complaints [...] Long Us NP [address] [place], [address], [facility] 01/17/2023 08:31:49
--- OUTSIDE RECORDS SUMMARY | 2024-11-18 07:27 | XMS_ITS | Clinical Summary ---
Author Organization [facility] Facility Address [address] [place] [address] Care Team Providers Care Space Engineer Name Role Phone Homero Car NP Primary Care Provider [phone] Allergies No known active allergies Medications diclofenac [...] to complete this topic Insurance BO COLBY [place] COLBY Care Teams Space Engineer Relationship Specialty Start Date End Date Homero Car NP [address] [place] [address] PCP - General Nurse Practitioner 01/17/21
--- NOTE | 2024-11-18 07:34 | MHC.PC.OV ---
Vital Signs 11/18/24 07:37 Height 6 ft 2 in Weight 326 lb BMI 41.9 BP 120/64 Blood Pressure Location Lt brachial Position Sitting Respiration 15 Pulse 72 Pulse Source Pulse Oximeter Temp 98.0 F Temp Source Oral Pulse Oximetry (%) 96 Oxygen Delivery Method Room Air Intake Visit Reasons: PE Intake Note: Pt is here today for his PE Allergies No Known Allergies [No Known Allergies*] Allergy (Verified 11/18/24 08:13) Medication List - Last Reconciled 11/18/24 by KASANDRA Reddy- acetaminophen 1,000 mg (2 x 500 mg) PO Q6H PRN albuterol sulfate 90 mcg/actuation 2 puffs inhalation Q4-6H PRN alcohol swabs (Alcohol Prep Pads) 1 pad topical BID 30 days atorvastatin 10 mg PO BEDTIME 90 days blood sugar diagnostic (FreeStyle Lite Strips) Use to check fasting blood sugar in am and random blood sugar during the day. diclofenac sodium 75 mg PO Q OTHER DAY 90 days doxycycline hyclate 100 mg PO BID 10 days FreeStyle [place] 2 [place] (flash glucose scanning reader) Tid testing NS FreeStyle [place] 2 Sensor (flash glucose sensor) TID testing NS lancets (FreeStyle Lancets) Use to check fasting blood sugar in am and random blood sugar during the day. lisinopril 2.5 mg PO DAILY metformin 500 mg PO DAILY omeprazole 20 mg PO DAILY sildenafil 50 mg PO DAILY PRN 10 days Tobacco use date assessed: 11/18/24 Dental Screening Dental Screen Date: 11/18/24 HPI PE HPI Details History of Present Illness The patient is a 54-year-old male presenting with an annual physical exam. His Type 2 Diabetes Mellitus has shown poor control, as indicated by an elevated HbA1c level of 10.7%. This deterioration appears to be multifactorial, potentially influenced by a recent respiratory illness, a course of prednisone, dietary indiscretions, and a vacation. Obesity, particularly morbid obesity, remains a significant issue contributing to his diabetes management difficulties and overall health status. He experienced a respiratory viral infection from which he is currently recuperating, and prednisone was administered to aid recovery. The patient denies any symptoms such as chest pain, dyspnea, abdominal issues, alterations in stool habits, or psychological distress. Additionally, he denies fever or chills and maintains normal foot sensation. Preventative measures such as an eye exam are current, and a colonoscopy is planned. He elected to forgo a digital rectal examination but does not indicate any urinary symptoms presently. Health Maintenance - Up-to-date eye examination - Scheduled colonoscopy - Monofilament foot testing performed - Discussed benefits and effects of Jardiance for diabetes management Social History - Recently on vacation, resulting in dietary changes Review of Systems - Cardiovascular: Denies chest pain - Respiratory: Denies shortness of breath, experiencing improvement from recent respiratory viral illness, lungs with scattered wheezes - Gastrointestinal: Denies abdominal discomfort, blood in stool, constipation, diarrhea - Neurological/Psychiatric: Denies suicidal ideation or homicidal ideation - General: Denies fever and chills Physical Exam General: Cooperative, healthy appearing, comfortable, no acute distress and well developed, morbidly obese Orientation: Patient oriented x3 Limitations: No limitations Head: Normal to inspection Ears: Hearing grossly normal bilaterally Nose: Normal external nose present Face and sinus: Normal facial exam Eyes: Appearance normal, both eyes and all related structures Neck: Normal visual inspection and Yes full ROM Respiratory: Normal respiratory effort and able to speak in complete sentences. Lungs with some scattered wheezes Cardiovascular: Regular rate and rhythm. Normal S1 and S2 GI: Normal to inspection. Soft to palpation and nontender Skin: No rashes or lesions noted Neuro: Patient oriented x3 Extremities: Normal to inspection. Feet were intact, monofilament sensation intact Results - Labs: HbA1c level of 10.7% Plan Management for Type 2 Diabetes Mellitus includes starting Jardiance, focusing on reducing the elevated HbA1c level affected by recent illness, prednisone intake, and dietary disruptions. Attention to weight management is essential given the patient's morbid obesity, which impacts diabetes control and general health. As the patient recovers from a respiratory viral illness, continuing improvement is observed, attributed in part to recent prednisone therapy. Preventative care measures are underway with an upcoming colonoscopy and an updated eye exam. Discussion Notes I discussed with the patient the implications of starting Jardiance for managing his Type 2 Diabetes Mellitus. We reviewed the potential side effects, and he is aware of the major risks associated. I emphasized improving glycemic control through drug therapy and lifestyle changes, especially considering his obesity and dietary influences. The patient's recovery from a recent respiratory viral infection was noted, with a positive response to prednisone treatment. I will reassess his diabetic control, weight management efforts, and overall health status during the next follow-up in approximately four months. I reminded the patient to reach out if questions or concerns arise in the interim. Preventative screenings such as the upcoming colonoscopy were confirmed, and PSA testing will be considered given the refusal of a digital rectal examination. Patient Instructions - Start Jardiance as discussed to help manage blood sugar levels. - Monitor and manage any side effects from Jardiance, contact me if they occur. - Maintain a healthy diet to support weight management and diabetes control. - Continue recovering from the respiratory illness and monitor any changes. - Attend the scheduled colonoscopy appointment as part of routine screening. - Reach out with any concerns or questions before the next follow-up appointment. [facility] Medical History (Updated 11/18/24 @ 07:53 by NORMA Reddy) Wheezing on auscultation Acute respiratory disease Facial abscess Heart palpitations Chest pain Cholelithiasis H/O splenomegaly Hepatomegaly Heart murmur Dyslipidemia Diabetes mellitus GERD (gastroesophageal reflux disease) Fatty liver Tubular adenoma of colon Splenomegaly Nicotine dependence, cigarettes, uncomplicated PONV (postoperative nausea and vomiting) Morbid obesity Erectile dysfunction Refused pneumococcal vaccination Surgical History History of colonoscopy History of ventricular septal defect repair History of umbilical hernia repair (~11/2021) History of surgery on extremity Family History Father No problems noted. Father Substance use disorder Mother Substance use disorder Maternal Uncle Substance use disorder Sister Substance use disorder Social History Housing: House Alcohol intake: current Alcohol intake frequency: holidays/special occasions only Patient Tobacco Use Status: Current everyday Tobacco user Tobacco use type: Cigarette Cigarettes Per Day: 15 Years Smoked: 25 e-Cigarette/Vaping Use: Never Used Second Hand Smoke Exposure: Yes service: No Current occupational status: employed Current occupation: [employer] Current occupational exposures/hazards: No Cognitive needs: No Hearing needs: No Vision needs: Yes Questionnaire PHQ-9 Over the last 2 weeks, how often have you been bothered by any of the following problems? 1. Little interest or pleasure in doing things: more than half the days 2. Feeling down, depressed, or hopeless: not at all 3. Trouble falling or staying asleep, or sleeping too much: not at all 4. Feeling tired or having little energy: several days 5. Poor appetite or overeating: not at all 6. Feeling bad about yourself - or that you are a failure or have let yourself or your family down: not at all 7. Trouble concentrating on things, such as reading the newspaper or watching television: not at all 8. Moving or speaking so slowly that other people could have noticed. Or the opposite - being so fidgety or restless that you have been moving around a lot more than usual: not at all 9. Thoughts that you would be better off or of hurting yourself in some way: not at all Total score: 3 Depression Screening Interpretation: Negative Depression Screening Done: Yes 32093 - PHQ-9 Billing: Yes Source: Developed by Drs. Je Gonzalez, Saray Villafana, Elian Hatfield and colleagues, with an educational yamileth from [employer]. Thrive Questionnaire Date Thrive assessed: 05/03/24 I am a: Patient What is your living situation today?: I have a steady place to live Within the past 12 months, did the food you bought not last and you didn't have the money to get more?: Never true Within the past 12 months, did you worry whether your food would run out before you got money to buy more?: Never true Do you have trouble paying for medicines?: No Do you have trouble getting transportation to medical appointments?: No Do you have trouble paying your heating and electricity bill?: No Do you have trouble taking care of your child, family member or friend?: No Do you have trouble with day-to-day activities such as bathing, preparing meals, shopping, managing finances, etc.?: No Are you currently unemployed and looking for a job?: No Are you interested in more education?: No Please select the resources that you would like help with: None Currently or been in a relationship where the following occur: No concerns reported THRIVE Score: 0 AUDIT C Alcohol Use Questionnaire (AUDIT-C) 1. How often do you have a drink containing alcohol?: Monthly or less 2. How many drinks containing alcohol do you have on a typical day when you are drinking?: 3 or 4 3. How often do you have six or more drinks on one occasion?: Never Total Score: 2 Score Reviewed/Action Taken: Yes IRENE-7 AMB Questionnaire IRENE-7 Date IRENE - 7 assessed: 05/03/24 Feeling nervous, anxious, or on edge: 0 = Not at all Not being able to stop or control worryin = Not at all Worrying too much about different things: 0 = Not at all Trouble relaxin = Not at all Being so restless that it is hard to sit still: 0 = Not at all Becoming easily annoyed or irritable: 0 = Not at all Feeling afraid as if something awful might happen: 0 = Not at all Total IRENE-7 score (0-4 normal; 5-9 mild; 10-14 moderate; 15-21 severe): 0 Source: Developed by Drs. Je Gonzalez, Saray Villafana, Elian Hatfield and colleagues, with an educational yamileth from [employer]. Physical exam (Primary Care) Vital Signs: Last Vital Signs Temp 98.0 F 11/18/24 07:37 Pulse 72 11/18/24 07:37 Resp 15 11/18/24 07:37 BP 120/64 11/18/24 07:37 Pulse Ox 96 11/18/24 07:37 Oxygen Delivery Method Room Air 11/18/24 07:37 BMI result Body Mass Index 41.9 Tobacco/Smoking Status: Tobacco use Status Tobacco use date assessed 11/18/24 11/18/24 07:37 Patient Tobacco Use Status Current everyday Tobacco 11/18/24 07:37 Tobacco use type Cigarette 11/18/24 07:37 e-Cigarette/Vaping Use Never Used 11/18/24 07:37 PHQ-9: PHQ-9 Score PHQ-9: Total score 3 11/18/24 07:37 Depression Screening Interpretation: Negative Thrive Assessment: Date of Thrive Assessment Date Thrive assessed 05/03/24 11/18/24 07:37 Currently or been in a relationship where the following occur: No concerns reported Results AMB Hemoglobin A1c AMB Hemoglobin A1c 10.7 % Last Edit by Kimber Quesada CMA on 11/18/24 07:55 Coding Level of Care Code Est Pt Prev Care 40-64y(00726) Diagnoses Diabetes mellitus E11.9 Morbid obesity E66.01 Encounter for routine adult physical exam with abnormal findings Z00.01 Additional Codes PHQ-9 - 06889 - PHQ-9 Billing: Yes ([id number]) Assessment & Plan Assessment & Plan (1) Diabetes mellitus: Code(s): E11.9 - Type 2 diabetes mellitus without complications Category: Medical (2) Morbid obesity: Code(s): E66.01 - Morbid (severe) obesity due to excess calories Category: Medical (3) Encounter for routine adult physical exam with abnormal findings: Code(s): Z00.01 - Encounter for general adult medical examination with abnormal findings Category: Medical Plan . Orders: Orders Complete Blood Count Auto Diff Today E11.9 - Type 2 diabetes mellitus without complications, E66.01 - Morbid (severe) obesity due to excess calories, Z00.01 - Encounter for general adult medical examination with abnormal findings Lipid Panel Today E11.9 - Type 2 diabetes mellitus without complications, E66.01 - Morbid (severe) obesity due to excess calories, Z00.01 - Encounter for general adult medical examination with abnormal findings AMB Hemoglobin A1c Today E11.9 - Type 2 diabetes mellitus without complications Comprehensive [place]. Panel Fast Today E11.9 - Type 2 diabetes mellitus without complications, E66.01 - Morbid (severe) obesity due to excess calories, Z00.01 - Encounter for general adult medical examination with abnormal findings TSH reflex Free T4 Today E11.9 - Type 2 diabetes mellitus without complications, E66.01 - Morbid (severe) obesity due to excess calories, Z00.01 - Encounter for general adult medical examination with abnormal findings UA CC w/rflx Micro + Cult Today E11.9 - Type 2 diabetes mellitus without complications, E66.01 - Morbid (severe) obesity due to excess calories, Z00.01 - Encounter for general adult medical examination with abnormal findings Medications: New empagliflozin (Jardiance) 10 mg PO DAILY 30 days 30 tabs 3RF amoxicillin-pot clavulanate 875-125 mg 1 tab PO BID 10 days 20 tabs 0RF
[2024-11-18 07:37] VITALS: BP 120/64; PULSE 72; RESP 15; TEMP 36.7; O2SAT 96; BMI 41.9
== END 2024-11-18 08:29 | disposition home or self-care (01) ==
PROVIDERS: PCP Nurse Practitioner Family; Visit Provider Nurse Practitioner Family
DX: Z00.00 Encounter for general adult medical examination without abnormal findings (principal); E11.9 Type 2 diabetes mellitus without complications; E66.01 Morbid (severe) obesity due to excess calories; Z68.41 Body mass index [BMI] 40.0-44.9, adult

== ENCOUNTER → 2024-11-18 07:25 | Outpatient (BNVA) | payer OTHER, SELFPAY | PROVIDERS: PCP Nurse Practitioner Family; Visit Provider Nurse Practitioner Family | DX: Z00.01 Encounter for general adult medical examination with abnormal findings (principal); E11.9 Type 2 diabetes mellitus without complications; E66.01 Morbid (severe) obesity due to excess calories; Z68.41 Body mass index [BMI] 40.0-44.9, adult | CPT/HCPCS: 83036; 96127 ==

== ENCOUNTER 2024-12-10 15:01 | Outpatient (AMB) | payer OTHER, SELFPAY ==
[2024-12-10 15:23] VITALS: BP 130/80; PULSE 66; TEMP 36.6; O2SAT 99
--- NOTE | 2024-12-10 15:23 | AM.OFFWIN_ITS ---
Intake Vital Signs 12/10/24 15:23 Weight 319 lb BP 130/80 Blood Pressure Location Lt brachial Position Sitting Pulse 66 Pulse Source Pulse Oximeter Temp 97.8 F Temp Source Oral Pulse Oximetry (%) 99 Oxygen Delivery Method Room Air Intake Visit Reasons: EP ? sinus infection Intake Note: Patient here for teeth pain, head pressure and sinus pressure that started up last night. Patient Tobacco Use Status: Current everyday Tobacco user Allergies No Known Allergies [No Known Allergies*] Allergy (Verified 12/10/24 15:29) Do you need a note to return to daycare/school/sports/work: No HPI HPI Comments History of Present Illness Details History - The patient is a 54-year-old male pres enting with sinusitis flare-up. - Symptoms commenced 3 weeks ago with a sinus infection. - A 10-day antibiotic course of Augmenti n was completed on November 18, temporarily alleviating symptoms. - Recurrence occurred 10 days ago, with soreness radiating across the face and jaw soreness, especially noted on the left side. - The patient denies experiencing ear pa in, fever, headaches, or fatigue. - Augmentin was well-tolerated previousl y with no reported side effects. - Mild allergies were reported, and the patient plans to initiate an allergy medication. Physical Exam General: Cooperative, healthy appearing, comfortable and no acute distress Orientation/consciousness: Patient oriented x3 Limitations: No limitations Head: Normal to inspection Ears: Hearing grossly normal bilaterally, external ears normal and TM's normal bilaterally Nose: Normal external nose present, Normal nares present and No nasal discharge present Face and sinus: Normal facial exam and No sinuses TTP maxillary left side Mouth: Normal oral and palatal mucosa present and moist mucous membranes Throat: Yes tonsils normal, Yes uvula midline. Posterior oropharynx erythema Eyes: Appearance normal, both eyes and all related structures Neck: Normal visual inspection Respiratory: Normal respiratory effort, able to speak in complete sentences, no respiratory distress, not tachypneic, no tripod positioning and no use of accessory muscles Skin: No rashes or lesions noted Neuro: Patient oriented x3 Extremities: Normal to inspection and Yes no clubbing, cyanosis or edema [facility] Medical History (Updated 12/10/24 @ 15:45 by Kaitlynn Ramachandran PA-C) Wheezing on auscultation Acute respiratory disease Facial abscess Heart palpitations Chest pain Cholelithiasis H/O splenomegaly Hepatomegaly Heart murmur Dyslipidemia Diabetes mellitus GERD (gastroesophageal reflux disease) Fatty liver Tubular adenoma of colon Splenomegaly Nicotine dependence, cigarettes, uncomplicated PONV (postoperative nausea and vomiting) Morbid obesity Erectile dysfunction Refused pneumococcal vaccination Surgical History History of colonoscopy History of ventricular septal defect repair History of umbilical hernia repair (~11/2021) History of surgery on extremity Family History Father No problems noted. Father Substance use disorder Mother Substance use disorder Maternal Uncle Substance use disorder Sister Substance use disorder Social History Housing: House Alcohol intake: current Alcohol intake frequency: holidays/special occasions only Patient Tobacco Use Status: Current everyday Tobacco user Tobacco use type: Cigarette Cigarettes Per Day: 15 Years Smoked: 25 e-Cigarette/Vaping Use: Never Used Second Hand Smoke Exposure: Yes service: No Current occupational status: employed Current occupation: [employer] Current occupational exposures/hazards: No Cognitive needs: No Hearing needs: No Vision needs: Yes Review of Systems Const All systems reviewed & are unremarkable except as noted in HPI and below Physical Exam Vital Signs: Last Vital Signs Temp 97.8 F 12/10/24 15:23 Pulse 66 12/10/24 15:23 BP 130/80 12/10/24 15:23 Pulse Ox 99 12/10/24 15:23 Oxygen Delivery Method Room Air 12/10/24 15:23 Assessment & Plan Assessment & Plan (1) Acute bacterial sinusitis: Code(s): J01.90 - Acute sinusitis, unspecified; B96.89 - Other specified bacterial agents as the cause of diseases classified elsewhere Plan: VSS, pt well appearing and PE unremarkable. A 7-day course of Augmentin has been prescribed to manage the recurrent sinusitis symptoms, with the prior course demonstrating good tolerance. An adjunctive recommendation for using Fluticasone propionate nasal spray aims to decrease nasal congestion and inflammation by proper application. The patient is also advised on saline nasal irrigation to reduce bacterial presence. To prevent further sinusitis episodes, beginning an allergy medication is suggested, considering the patient's mild allergy history. The prescription has been sent to the patient's chosen pharmacy. Patient was informed and verbally consented to the use of an ambient scribe for clinic note documentation during this visit Medications: New amoxicillin-pot clavulanate 875-125 mg 1 tab PO Q12H 14 tabs 0RF Coding Level of Care Code Est Pt Level 3 (94069) Diagnoses Acute bacterial sinusitis J01.90; B96.89
== END 2024-12-10 16:30 | disposition home or self-care (01) ==
PROVIDERS: PCP Nurse Practitioner Family; Visit Provider Physician Assistant
DX: J01.90 Acute sinusitis, unspecified (principal); B96.89 Other specified bacterial agents as the cause of diseases classified elsewhere

== ENCOUNTER 2025-01-04 14:46 | Outpatient (AMB) | payer OTHER, SELFPAY ==
--- NOTE | 2025-01-04 14:48 | A.OFFVIS_ITS ---
Vital Signs 3 01/04/25 14:49 Height 6 ft 2 in Weight 312 lb 9.848 oz BMI 40.1 BP 124/62 Blood Pressure Location Lt brachial Position Sitting Pulse 65 Intake Visit Reasons: Colonoscopy Screening R/S X3 Intake Note: Jarrett returns to office today to discuss repeat colonoscopy. CC: Patient denies having any GI symptoms or concerns today. 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 He tolerated the procedure well. He is quite agreeable to the 2 year follow-up after explained to him the nature of sessile polyps and that we want to make sure they been completely excised. His bowels returned to normal after the procedure and he has no complaints. He he is satisfied with the service rendered. I will put him on a 2 year recall list but he should also try to remember so that he protect his future health. He is also educated to advise any 1st degree relatives to be screened by age 45 this they likely have this a genetic risk. He denies any ongoing cardiac or respiratory problems. No ID problems. His mother had polyps, no known FHX of CRC. COLONOSCOPY 06/10/22 Findings: Terminal Ileum: Not evaluated Cecum:? Normal Ascending Colon:? Two 4-8 mm sessile polyps in the distal AC removed with a cold bx and a cold snare. Transverse Colon:? Two 8 to 12 mm sessile polyps removed with a hot snare and a cold snare Descending Colon:? Moderate diverticulosis Sigmoid Colon:? Two 12-15 mm sessile polyps removed with a hot snare. A 2 cms pedunculated polyp at 30 cms - removed with a hot snare Polypectomy site was closed with a hemoclip. Moderate diverticulosis. Rectum:? Normal Ano-rectum:? Moderate internal hemorrhoids Colon preparation:? Good? Impression and Post Procedure Diagnosis: Colonoscopy Findings: Two small and five medium to large sized polyps removed Moderate diverticulosis seen in the left colon Moderate hemorrhoids on retroflexed exam. Plan: Await pathology results Patient has an appointment on 06/21/22 in the GI Clinic with? Ina Medina NP? . Repeat Colonoscopy interval based on path results - in 2 years if polyps are adenomatous and 5 years if polyps are hyperplastic. BIOPSY Received: 06/10/22 Diagnosis A.? Colon, ascending, polypectomies (2): - Inflammatory polyp. - Colonic mucosa with small lymphoid aggregate. B.? Colon, transverse, polypectomies (2): - Tubular adenoma; negative for high-grade dysplasia or carcinoma. - Colonic mucosa with small lymphoid aggregate. C.? Colon, sigmoid, polypectomies (2):? Tubular adenomata; negative for high- grade dysplasia or carcinoma. D.? Colon, 30 cm, polypectomy:? Tubular adenoma; negative for high-grade dysplasia or carcinoma. LABS: None recent TODAY'S VISIT He denies any new problems to add his medical history. He has not had much experience with anesthesia or sedation, but when he had cardiac procedures they had trouble getting him to sleep.? Of course this was performed when he was 7 years old so I am not sure how much we can put into this. He has done well with colonoscopy sedation in the past. He denies any ongoing cardiac or respiratory problems. No ID problems. His mother had polyps, no known FHX of CRC. And of course he had rather large tubular adenomas at his last scope in his a year overdue. [facility] Medical History (Updated 01/04/25 @ 15:19 by SAMMI Busby) Chest pain Pneumonia Cough RLQ abdominal pain Left hamstring muscle strain Strain of other extensor muscle, fascia and tendon at forearm level, left arm, initial encounter Tendonitis Lateral epicondylitis of elbow Acute pain of left lower extremity Screening PSA (prostate specific antigen) Acute respiratory disease Encounter for routine adult physical exam with abnormal findings Acute bacterial sinusitis Wheezing on auscultation Facial abscess Heart palpitations Cholelithiasis H/O splenomegaly Hepatomegaly Heart murmur Dyslipidemia Diabetes mellitus GERD (gastroesophageal reflux disease) Fatty liver Tubular adenoma of colon Splenomegaly Nicotine dependence, cigarettes, uncomplicated PONV (postoperative nausea and vomiting) Morbid obesity Erectile dysfunction Refused pneumococcal vaccination Surgical History History of colonoscopy History of ventricular septal defect repair History of umbilical hernia repair (~11/2021) History of surgery on extremity Family History Father No problems noted. Father Substance use disorder Mother Substance use disorder Maternal Uncle Substance use disorder Sister Substance use disorder Social History Housing: House Alcohol intake: current Alcohol intake frequency: holidays/special occasions only Patient Tobacco Use Status: Current everyday Tobacco user Tobacco use type: Cigarette Cigarettes Per Day: 15 Years Smoked: 25 e-Cigarette/Vaping Use: Never Used Second Hand Smoke Exposure: Yes service: No Current occupational status: employed Current occupation: [employer] Current occupational exposures/hazards: No Cognitive needs: No Hearing needs: No Vision needs: Yes Review of Systems Const Denies fatigue, Denies fever(s), Denies night sweats, Denies poor appetite and Denies weight loss Eyes Reports requires corrective lenses ENT Reports Normal hearing present, Denies dental pain, Denies dysphagia, Denies hearing loss, Denies mouth pain, Denies odynophagia, Denies throat swelling, Denies tongue swelling and Reports other (Dentition adequate) GI Details: Denies abdominal pain, Denies melena, Denies bloating, Denies hematochezia, Denies constipation, Denies GI cramping, Denies dysphagia, Denies excessive flatus, Denies early satiety, Denies heartburn, Denies diarrhea, Denies nausea, Denies odynophagia, Denies vomiting and Denies hematemesis Skin/Breast Denies pruritus, Denies lesions, Denies rash and Denies jaundice Neuro Reports Normal hearing present and Denies Abnormal speech present Endo Denies fatigue Aller/Immun Denies throat swelling and Denies tongue swelling Physical Exam Vital Signs: Last Vital Signs Pulse 65 01/04/25 14:49 BP 124/62 01/04/25 14:49 BMI result Body Mass Index 40.1 Const General: cooperative, no acute distress, well developed and well groomed Nutritional Appearance: well nourished and obese morbidly obese Orientation/consciousness: oriented to person, oriented to place and oriented to time Limitations: No language barrier HEENT Head: Yes normocephalic and Yes atraumatic Eyes General: appearance normal, both eyes and all related structures Pupils: Equal, round and reactive pupils present Neck Neck: Yes normal visual inspection and Yes no lymphadenopathy Thyroid: Thyroid normal Resp Effort & Inspection: normal respiratory effort and able to speak in complete sentences Auscultation: clear to auscultation bilaterally Cardio Rate: regular rate Rhythm: regular rhythm Heart sounds: Normal, physiologic split S2 sound present Peripheral pulses: radial pulses present and posterior tibial pulses present GI Inspection: No distended, Yes Abdominal panniculus present, Yes obesity, Yes scar and Yes striae Palpation (GI): Soft to palpation, nontender, no guarding, not rigid and No hepatosplenomegaly present Percussion: Yes normal to percussion Auscultation: normal bowel sounds Rectal Exam - Male: Yes deferred Abdomen image: 2 1. surgical scar Skin General skin exam: no rashes or lesions noted, turgor normal, skin not dry, no jaundice, No spider nevi and no striae Rashes: no rashes Nails: normal Neuro General: oriented to person, oriented to place and oriented to time Cranial nerves: Yes Equal, round and reactive pupils present and Yes Normal hearing present Speech: No Abnormal speech present Extrem General: Yes normal to inspection, No clubbing, No cyanosis and Yes edema (Very mild ankles) Psych Appearance: grossly normal and well kempt Mental Status: mental status grossly normal Speech and movement: Normal speech and movement present Affect: normal affect Attitude: cooperative Thought process: Normal thought process present and not confabulating Thought content: Normal thought content present Insight: Good insight present (Psych) Judgement: Good judgement present (Psych) Assessment & Plan Assessment & Plan (1) Pre-op examination: Code(s): Z01.818 - Encounter for other preprocedural examination Category: Medical (2) Tubular adenoma of colon: Comment: (4 TA's on 2021 scope - repeat 2yrs) Code(s): D12.6 - Benign neoplasm of colon, unspecified Category: Medical (3) Family history of polyps in the colon: Comment: mother Code(s): Z83.71 - Family history of colonic polyps Category: Medical (4) Morbid obesity: Code(s): E66.01 - Morbid (severe) obesity due to excess calories Category: Medical Plan He denies any new problems to add his medical history. He has not had much experience with anesthesia or sedation, but when he had cardiac procedures they had trouble getting him to sleep.? Of course this was performed when he was 7 years old so I am not sure how much we can put into this. He has done well with colonoscopy sedation in the past. He denies any ongoing cardiac or respiratory problems. No ID problems. His mother had polyps, no known FHX of CRC. And of course he had rather large tubular adenomas at his last scope in his a year overdue. Orders: Orders 2 Comprehensive Met. Panel Today D12.6 - Benign neoplasm of colon, unspecified, Z01.818 - Encounter for other preprocedural examination Complete Blood Count Auto Diff Today D12.6 - Benign neoplasm of colon, unspecified, Z01.818 - Encounter for other preprocedural examination Colonoscopy - GI Use Only Today D12.6 - Benign neoplasm of colon, unspecified, Z01.818 - Encounter for other preprocedural examination Medications: New 2 peg 3350-electrolytes 236-22.74-6.74 -5.86 gram (Golytely) until fecal effluent is clear; do not exceed a total volume of 2,000 mL 240 mL PO Q10M 4,000 mL 0RF 1 day Z12.11 - Encounter for screening for malignant neoplasm of colon bisacodyl (Dulcolax (bisacodyl)) 10 mg (2 x 5 mg) PO BEDTIME 4 tabs 0RF 2 days Coding Level of Care Code New Pt Level 3 (53764) Diagnoses Pre-op examination Z01.818 Tubular adenoma of colon D12.6 Family history of polyps in the colon Z83.71 Morbid obesity E66.01
[2025-01-04 14:49] VITALS: BP 124/62; PULSE 65; BMI 40.1
--- OUTSIDE RECORDS SUMMARY | 2025-01-04 17:39 | XMS_ITS | Clinical Summary ---
Author Organization [facility] Facility Address [address] [place] [address] Care Team Providers Care Branding Machine Operator Name Role Phone Homero Car NP Primary Care Provider [phone] Allergies No known active allergies Medications diclofenac [...] Colonoscopy 2018 Colorectal Cancer Screening: Sigmoidoscopy 2018 Pneumococcal Vaccine: 50+ Years (1 of 1 - PCV) 020 Diabetes: Hemoglobin A1C 01/18/2021 Diabetes: Ophthalmology Exam 01/18/2021 Diabetes: Pedal Pulse Checked 01/18/2021 Diabetes: Sensory Foot Exam 01/18/2021 Diabetes: Visual Foot Exam 01/18/2021 Influenza Vaccine (Season Ended) 2025 Insurance [place] [employer] [employer] Care Teams Branding Machine Operator Relationship Specialty Start Date End Date Homero Car NP [address] [place] [address] PCP - General Nurse Practitioner 01/17/21
--- OUTSIDE RECORDS SUMMARY | 2025-01-04 17:39 | XMS_ITS | Data Portability ---
Author Organization [facility], [address] Address [address] [place] [address] Care Team Providers Care Communication Skills Instructor Name Role Phone [facility] Primary Care Provider Assessment No assessment recorded. Plan of Treatment Reminders Order Date Submit Date Provider Last Modified By Organization Details Last Modified Time Details Appointments None recorded. Lab None recorded. Referral None recorded. Procedures None recorded. Surgeries None recorded. Imaging None recorded. Medication Orders prednisone 20 mg tablet 2022 023 [facility] #[id number], [address] [place], [address], 3 08:31:44 albuterol sulfate HFA 90 mcg/actuati on aerosol inhaler 2022 023 [id number] [address] [place], [address], 3 08:31:43 benzonatate 200 mg capsule 2022 023 [id number] [address] [place], [address], 3 08:31:44 Allergy Relief (fluticason e) 50 mcg/actuati on nasal spray,suspe nsion 2022 023 [facility] #[id number], [address] [place], [address], 3 08:31:44 Polytrim 10,000 unit-1 mg/mL eye drops 2022 023 [email or web address] [facility]armacy #[id number], [address] [place], [address], 3 08:19:30 erythromyci n 5 mg/gram (0.5 %) eye ointment 2022 023 BRAD [facility] #[id number], [address] [place], [address], 3 08:19:27 Patient TargetsNo targets recorded. Patient Instructions Encounter Date Encounter Id Patient Instructions Last Modified By Organization Details Last Modified Time 09/15/2022 [id number] franchescae: care instructions [email or web address] Not available 09/15/2022 [...] you! [email or web address] Not available 09/15/2022 15:40:09 01/17/2023 [id number] Patient instruct ed on worsening signs and [...] Address Organization Details Recorded Time Hypercholestero lemia 62140633 Active 2022 MICHELE DEPINTO null, [place] - [facility] 3 15:24:10 Diabetes mellitus 37740984 Active 2022 MICHELE DEPINTO null, PA - [facility] 3 15:24:14 Heart murmur 65107234 Active 2022 MICHELE DEPINTO null, PA - [...] Updated DateTime 3 187.96 cm 41.1 kg/m2 009754. 56 g 0 20 /min 98 % [...] Updated DateTime 3 187.96 cm 41.1 kg/m2 893431. 56 g 6 97.2 [degF] 19 /min [...] SNOMED-CT Code Diagnosis ICD10 Code Diagnosis Note [id number] [address] [facility] [place] [address] 06/22/2020 11:20:48 06/22/2020 12:04:15 [id number] [address] [place], [place] [address] [place] [address] 04/26/2021 18:10:23 04/26/2021 20:00:01 [id number] [address] [place] [address] [place] [address] 10/05/2017 08:45:35 10/05/2017 09:10:52 [id number] [address] [place] [address] [place] [address] 06/16/2018 08:13:36 06/16/2018 08:41:58 [id number] [address] [facility] [place] [address] 06/14/2018 08:04:50 06/14/2018 08:40:24 [id number] [address] [facility] [place] [address] 10/03/2020 17:58:01 10/03/2020 19:06:40 [id number] [address] [facility] [place] [address] 02/16/2018 18:37:52 02/16/2018 20:00:02 [id number] [address] [facility] [place] [address] 09/26/2019 08:07:29 09/26/2019 08:26:12 [id number] [address] [facility] [place] [address] 09/22/2017 11:07:15 09/22/2017 11:54:30 [id number] [address] [place] [address] 10/07/2017 08:59:28 10/07/2017 10:27:14 [id number] AVANI JOYCE [address] [place] [address] 09/15/2022 10:59:06 09/15/2022 15:53:02 Acute conjunctivitis of left eye [id number] 21779 H10.32 Hordeolum externum of lower eyelid of left eye 1511160799 76222 H00.015 [id number] Vane Alvarez MD [address] [place] [address] 01/17/2023 08:06:52 01/17/2023 08:37:10 Acute bronchitis [id number] J20.9 Health Concerns Section Related Observation LastModified by Organization Detai ls LastModified Time None Recorded Concern Status LastModified by Organization Details LastModified Time None Recorded Advance Directives Directive None Recorded Payers Encounter Date Sequence Insurance Name Policy Number Policy Pascual Covered Member ID Pascual Member ID Guarantor Name 10/03/2020 1 [employer] Jarrett Moore [id number] Jarrett Moore 04/26/2021 1 [employer] Jarrett Moore [id number] Jarrett Moore 09/15/2022 1 [employer] Jarrett Moore [id number] Jarrett Moore 01/17/2023 1 [employer] (PPO) Jrarett Moore [id number] Jarrett Moore Notes Date Note Type [...] eyelid. AVANI CRUMP [address] [place], [id number], [facility] 09/15/2022 16:44:34 01/17/2023 text/html Sinus Complaints [...] Long Us NP [address] [place], [address], [facility] 01/17/2023 08:31:49
== END 2025-01-04 15:32 | disposition home or self-care (01) ==
LOC: HO.HGI 14:47
PROVIDERS: PCP Nurse Practitioner Family; Visit Provider Nurse Practitioner
DX: Z01.818 Encounter for other preprocedural examination (principal); Z12.11 Encounter for screening for malignant neoplasm of colon; Z86.0101 Personal history of adenomatous and serrated colon polyps; Z83.719 Family history of colon polyps, unspecified
CPT/HCPCS: S0285

== ENCOUNTER 2025-01-25 10:15 | Outpatient (AMB) | payer OTHER, SELFPAY ==
--- NOTE | 2025-01-25 10:21 | MHC.OFFWIV ---
Intake Vital Signs 01/25/25 10:26 Height 6 ft 2 in Weight 312 lb BMI 40.1 BP 122/80 Blood Pressure Location Rt brachial Position Sitting Pulse 64 Pulse Source Pulse Oximeter Temp 97.9 F Temp Source Oral Pulse Oximetry (%) 98 Intake Visit Reasons: EP swollen salivary glands Patient Tobacco Use Status: Current everyday Tobacco user Allergies No Known Allergies [No Known Allergies*] Allergy (Verified 01/25/25 10:27) Do you need a note to return to daycare/school/sports/work: Yes HPI HPI Comments History of Present Illness Details History - The patient is a 54-year-old male presenting with inflammation and pain in the area of the left sided face/parotid gland. - Symptoms of glandular soreness and increased hardness began two and a half days ago, worsening with food intake. - Eating, especially a breakfast sandwich, triggers significant pain increase. - The patient denies fever, cough, congestion, or visible cheek abnormalities but notes left ear pain associated with eating. - A prior similar episode resolved with Augmentin treatment. - Current non-pharmaceutical relief from compresses is minimal, but partial spontaneous symptom improvement was observed. Physical Exam General: Cooperative, healthy appearing, comfortable and no acute distress Orientation/consciousness: Patient oriented x3 Limitations: No limitations Head: Normal to inspection Ears: Hearing grossly normal bilaterally, external ears normal and TM's normal left side Nose: Normal external nose present, Normal nares present and No nasal discharge present Face and sinus: Normal facial exam, ttp along left parotid gland area into submandibular gland Mouth: Normal oral and palatal mucosa present and moist mucous membranes, no signs of infection noted Throat: Yes tonsils normal, Yes uvula midline. Eyes: Appearance normal, both eyes and all related structures Neck: Normal visual inspection Respiratory: Normal respiratory effort, able to speak in complete sentences, no respiratory distress, not tachypneic, no tripod positioning and no use of accessory muscles Skin: No rashes or lesions noted Neuro: Patient oriented x3 Extremities: Normal to inspection and Yes no clubbing, cyanosis or edema [facility] Medical History (Updated 01/25/25 @ 10:36 by Kaitlynn Ramachandran PA-C) Chest pain Pneumonia Cough RLQ abdominal pain Left hamstring muscle strain Strain of other extensor muscle, fascia and tendon at forearm level, left arm, initial encounter Tendonitis Lateral epicondylitis of elbow Acute pain of left lower extremity Screening PSA (prostate specific antigen) Acute respiratory disease Encounter for routine adult physical exam with abnormal findings Acute bacterial sinusitis Wheezing on auscultation Facial abscess Heart palpitations Cholelithiasis H/O splenomegaly Hepatomegaly Heart murmur Dyslipidemia Diabetes mellitus GERD (gastroesophageal reflux disease) Fatty liver Tubular adenoma of colon Splenomegaly Nicotine dependence, cigarettes, uncomplicated PONV (postoperative nausea and vomiting) Morbid obesity Erectile dysfunction Refused pneumococcal vaccination Surgical History History of colonoscopy History of ventricular septal defect repair History of umbilical hernia repair (~11/2021) History of surgery on extremity Family History Father No problems noted. Father Substance use disorder Mother Substance use disorder Maternal Uncle Substance use disorder Sister Substance use disorder Social History Housing: House Alcohol intake: current Alcohol intake frequency: holidays/special occasions only Patient Tobacco Use Status: Current everyday Tobacco user Tobacco use type: Cigarette Cigarettes Per Day: 15 Years Smoked: 25 e-Cigarette/Vaping Use: Never Used Second Hand Smoke Exposure: Yes service: No Current occupational status: employed Current occupation: [employer] Current occupational exposures/hazards: No Cognitive needs: No Hearing needs: No Vision needs: Yes Physical Exam Vital Signs: Last Vital Signs Temp 97.9 F 01/25/25 10:26 Pulse 64 01/25/25 10:26 BP 122/80 01/25/25 10:26 Pulse Ox 98 01/25/25 10:26 BMI result Body Mass Index 40.1 Assessment & Plan Assessment & Plan (1) Parotid sialadenitis: Code(s): K11.20 - Sialoadenitis, unspecified Plan: I will commence treatment with Augmentin, noting its previous success in resolving the similar condition. The selected antibiotic targets the likely bacterial pathogens contributing to the sialadenitis, with expectations for symptomatic improvements within a few days. Increasing fluid intake is advised to facilitate gland drainage, and further diagnostic imaging, like an ultrasound, is considered if symptoms persist or escalate. The prescription has been processed to the patient's pharmacy, and a follow-up with his PCP or returning to the [facility] is advised should the condition deteriorate. Patient was informed and verbally consented to the use of an ambient scribe for clinic note documentation during this visit Medications: New amoxicillin-pot clavulanate 875-125 mg 1 tab PO Q12H 14 tabs 0RF Coding Level of Care Code Est Pt Level 3 (13255) Diagnoses Parotid sialadenitis K11.20
[2025-01-25 10:26] VITALS: BP 122/80; PULSE 64; TEMP 36.6; O2SAT 98; BMI 40.1
--- OUTSIDE RECORDS SUMMARY | 2025-01-25 11:20 | XMS_ITS | Data Portability ---
Author Organization AVANI Jimenez s, [address] Address [address] [place] [address] Care Team Providers Care Manager Agriculture Name Role Phone [facility] Primary Care Provider [phone] Assessment No assessment recorded. Plan of Treatment Reminders Order Date Submit Date Provider Last Modified By Organization Details Last Modified Time Details Appointments None recorded. Lab None recorded. Referral None recorded. Procedures None recorded. Surgeries None recorded. Imaging None recorded. Medication Orders prednisone 20 mg tablet 2022 023 [facility]acy #0693, [address] [place], [address], 3 08:31:44 albuterol sulfate HFA 90 mcg/actuati on aerosol inhaler 2022 023 [facility] [address] [place], [address], 3 08:31:43 benzonatate 200 mg capsule 2022 023 [facility], [address] [place], [address], 3 08:31:44 Allergy Relief (fluticason e) 50 mcg/actuati on nasal spray,suspe nsion 2022 023 [facility]armacy #0693, [address] [place], [address], 3 08:31:44 Polytrim 10,000 unit-1 mg/mL eye drops 2022 023 [email or web address] [facility]/Pharmacy #0693, [address] [facility] [place], [address], 3 08:19:30 erythromyci n 5 mg/gram (0.5 %) eye ointment 2022 023 [facility]armacy #0693, [address] [facility] [place], [address], 3 08:19:27 Patient TargetsNo targets recorded. Patient Instructions Encounter Date Encounter Id Patient Instructions Last Modified By Organization Details Last Modified Time 09/15/2022 [id number] franchescae: care instructions sghohestanib Not available 09/15/2022 [...] you! sghohestanib Not available 09/15/2022 15:40:09 01/17/2023 [id number] Patient instruct ed on worsening signs and [...] Address Organization Details Recorded Time Hypercholestero lemia 82647230 Active 2022 MICHELE DEPINTO null, PA - [facility] 3 15:24:10 Diabetes mellitus 31723935 Active 2022 MICHELE DEPINTO null, PA - [facility] 3 15:24:14 Heart murmur 54202142 Active 2022 MICHELE DEPINTO null, PA - [...] Updated DateTime 3 187.96 cm 41.1 kg/m2 847787. 56 g 0 20 /min 98 % 98 % 74 /min 98.6 [degF] 132 mm[Hg] 88 mm[Hg] YAMILET SANTILLAN PA - [facility] 3 08:21:01 Date Recorded Body height Body mass index (BMI) Body weight Pain severity - 0-10 verbal numeric rating [Score] - Reported Body temperature Respiratory rate Heart rate Oxygen saturation Oxygen saturation in Arterial blood by Pulse oximetry Systolic blood pressure Diastolic blood pressure Provider Name and Address Organization Details Last Updated DateTime 3 187.96 cm 41.1 kg/m2 866103. 56 g 6 97.2 [degF] 19 /min 69 /min 98 % 98 % 151 mm[Hg] 88 mm[Hg] MICHELE GODWIN PA [employer] [facility] 3 15:27:51 Social History Question Answer Notes LastModified by [employer] Details LastModified Time Tobacco Smoking Status Current Some Day Smoker MICHELE nelson PA - [facility] 09/15/2022 15:24:58 How Much Tobacco Do You Smoke? 1 PPD Information not available 09/15/2022 Have You Recently Traveled Abroad? No Information not available 09/15/2022 Sex: Unknown Functional Status Question Answer Note LastModified by Organizat ion Details LastModified Time How many times per week do you consume alcohol? <1 time per week Information not available 09/15/2022 Do you use any illicit or recreational drugs? No Information not available 09/15/2022 Do you or have you ever used any other forms of tobacco or nicotine? No Information not available 09/15/2022 What is your level of alcohol consumption? Occasional Information not available 09/15/2022 Mental Status None recorded. Family History Relationship Description Onset Age of this Age Resolved Age Notes LastModified by Organization Details LastModified Time Mother Multiple sclerosis Not available 2022 15:24:36 Medical History No medical history recorded. Past Encounters Encounter ID Performer Location Encounter Start Date Encounter Closed Date Diagnosis/Indication Diagnosis SNOMED-CT Code Diagnosis ICD10 Code Diagnosis Note [id number] [address] [place] [address] 06/22/2020 11:20:48 06/22/2020 12:04:15 [id number] [address] [place] [address] 04/26/2021 18:10:23 04/26/2021 20:00:01 [id number] [address] [place] [address] 10/05/2017 08:45:35 10/05/2017 09:10:52 [id number] [address] [place] [address] 06/16/2018 08:13:36 06/16/2018 08:41:58 [id number] [address] [place] [address] 06/14/2018 08:04:50 06/14/2018 08:40:24 [id number] [address] [place] [address] 10/03/2020 17:58:01 10/03/2020 19:06:40 [id number] [address] [place] [address] 02/16/2018 18:37:52 02/16/2018 20:00:02 [id number] [address] [place] [address] 09/26/2019 08:07:29 09/26/2019 08:26:12 [id number] [address] [place] [address] 09/22/2017 11:07:15 09/22/2017 11:54:30 [id number] [address] [place] [address] 10/07/2017 08:59:28 10/07/2017 10:27:14 [id number] AVANI JOYCE [address] [place] [address] 09/15/2022 10:59:06 09/15/2022 15:53:02 Acute conjunctivitis of left eye 3394539420 20607 H10.32 Hordeolum externum of lower eyelid of left eye 2636054301 82381 H00.015 [id number] [place] [address] [place] [address] 01/17/2023 08:06:52 01/17/2023 08:37:10 Acute bronchitis 48987397 J20.9 Health Concerns Section Related Observation LastModified by Organization Detai ls LastModified Time None Recorded Concern Status LastModified by Organization Details LastModified Time None Recorded Advance Directives Directive None Recorded Payers Insurance Date Sequence Insurance Name Policy Number Policy Pascual Covered Member ID Pascual Member ID Guarantor Name 01/17/2023 1 [facility] [id number] Jarrett Moore 01/17/2023 1 [facility] (PP[facility] Jarrett Moore [id number] Jarrett Moore Notes Date Note Type [...] eyelid. AVANI CRUMP [address] [place], [address], [employer] 09/15/2022 16:44:34 01/17/2023 text/html Sinus Complaints UCReported [...] Prior Treatmentoral decongestant Long Us NP [address] [place], [address], [employer] [facility] 01/17/2023 08:31:49
--- OUTSIDE RECORDS SUMMARY | 2025-01-25 11:20 | XMS_ITS | Clinical Summary ---
Author Organization [facility] Facility Address [address] [place] [address] Care Team Providers Care Continuing Education Director Name Role Phone Homero Car NP Primary Care Provider [phone] Allergies No known active allergies Medications diclofenac [...] 01/18/2021 Influenza Vaccine (Season Ended) 2025 Insurance Enid Holden Enid Holden Care Teams Continuing Education Director Relationship Specialty Start Date End Date Homero Car NP [address] [place] [address] PCP - General Nurse Practitioner 01/17/21
== END 2025-01-25 10:39 | disposition home or self-care (01) ==
PROVIDERS: PCP Nurse Practitioner Family; Visit Provider Physician Assistant
DX: K11.20 Sialoadenitis, unspecified (principal)

== ENCOUNTER → 2025-01-25 10:15 | Outpatient (BNVA) | payer OTHER, SELFPAY | PROVIDERS: PCP Nurse Practitioner Family; Visit Provider Physician Assistant ==

== ENCOUNTER 2025-01-31 06:29 | Outpatient (REF) | payer OTHER, SELFPAY ==
--- OUTSIDE RECORDS SUMMARY | 2025-01-31 06:31 | XMS_ITS | Clinical Summary ---
Author Organization [facility] Facility Address [address] [place] [address] Care Team Providers Care Ab Initio Etl Developer Name Role Phone Homero Car NP Primary Care Provider [phone] Allergies No known active allergies Medications diclofenac [...] 01/18/2021 Influenza Vaccine (Season Ended) 2025 Insurance Gans Holden Gans Holden Care Teams Ab Initio Etl Developer Relationship Specialty Start Date End Date Homero Car NP [address] [place] [address] PCP - General Nurse Practitioner 01/17/21
--- OUTSIDE RECORDS SUMMARY | 2025-01-31 06:31 | XMS_ITS | Data Portability ---
Author Organization AVANI Jimenez [facility], [address] Address [address] [place] [address] Care Team Providers Care Lottery Office Manager Name Role Phone [facility] Primary Care Provider Assessment No assessment recorded. Plan of Treatment Reminders Order Date Submit Date Provider Last Modified By Organization Details Last Modified Time Details Appointments None recorded. Lab None recorded. Referral None recorded. Procedures None recorded. Surgeries None recorded. Imaging None recorded. Medication Orders prednisone [address] [facility]acy #0693, [address] [place], [address], 3 08:31:44 albuterol sulfate HFA 90 mcg/actuati on aerosol inhaler 2022 023 [facility] [address] [place], [address], 3 08:31:43 benzonatate 200 mg capsule 2022 023 [facility] [address] [place], [address], 3 08:31:44 Allergy Relief (fluticason e) 50 mcg/actuati on nasal spray,suspe nsion [address] [facility]/Pharmacy #0693, [address] [place], [address], 3 08:31:44 Polytrim 10,000 unit-1 mg/mL eye drops 2022 023 [id number] [facility]/Pharmacy #0693, [address] [facility] [place], [address], 3 08:19:30 erythromyci n 5 mg/gram (0.5 %) eye ointment 2022 023 BRAD [facility]/Pharmacy #0693, [address] [facility] [place], [address], 3 08:19:27 Patient TargetsNo targets recorded. Patient Instructions Encounter Date Encounter Id Patient Instructions Last Modified By Organization Details Last Modified Time 09/15/2022 [id number] franchescae: care instructions sghohestanib Not available 09/15/2022 [...] you! sghohestanib Not available 09/15/2022 15:40:09 01/17/2023 [id number] Patient instruct ed on worsening signs and [...] Address Organization Details Recorded Time Hypercholestero lemia 17162194 Active 2022 MICHELE DEPINTO null, PA - [facility] 3 15:24:10 Diabetes mellitus 12359831 Active 2022 MICHELE DEPINTO null, PA - [facility] 3 15:24:14 Heart murmur 31939028 Active 2022 MICHELE DEPINTO null, PA - [...] height Body mass index (BMI) Body weight Respiratory rate Oxygen saturation Oxygen saturation in Arterial blood by Pulse oximetry Heart rate Body temperature Systolic blood pressure Diastolic blood pressure Provider Name and Address Organization Details Last Updated DateTime 3 187.96 cm 41.1 kg/m2 415157. 56 g 20 /min 98 % 98 % 74 /min 98.6 [degF] 132 mm[Hg] 88 mm[Hg] YAMILET SANTILLAN [place] - [facility] 3 08:21:01 Date Recorded Body height Body mass index (BMI) Body weight Body temperature Respiratory rate Heart rate Oxygen saturation Oxygen saturation in Arterial blood by Pulse oximetry Systolic blood pressure Diastolic blood pressure Provider Name and Address Organization Details Last Updated DateTime 3 187.96 cm 41.1 kg/m2 775247. 56 g 97.2 [degF] 19 /min 69 /min 98 % 98 % 151 mm[Hg] 88 mm[Hg] MICHELE GODWIN [employer] [facility] [employer] [facility] 3 15:27:51 Social History Question Answer Notes LastModified by [employer] Details LastModified Time Tobacco Smoking Status Current Some Day Smoker MICHELE nelson PA - [facility] 09/15/2022 15:24:58 How Much Tobacco Do You Smoke? 1 PPD Information not available 09/15/2022 Have You Recently Traveled Abroad? No Information not available 09/15/2022 Sex: Unknown Functional Status Question Answer Note LastModified by [employer] Details LastModified Time How many times per [...] SNOMED-CT Code Diagnosis ICD10 Code Diagnosis Note [id number] [address] [place] [address] 06/22/2020 11:20:48 06/22/2020 12:04:15 [id number] [address] [place] [address] 04/26/2021 18:10:23 04/26/2021 20:00:01 [id number] [address] [place] [address] 10/05/2017 08:45:35 10/05/2017 09:10:52 [id number] [address] [place] [address] 06/16/2018 08:13:36 06/16/2018 08:41:58 [id number] [address] [place] [address] 06/14/2018 08:04:50 06/14/2018 08:40:24 [id number] [address] [place] [address] 10/03/2020 17:58:01 10/03/2020 19:06:40 [id number] [address] [place] [address] 02/16/2018 18:37:52 02/16/2018 20:00:02 [id number] [address] [place] [address] 09/26/2019 08:07:29 09/26/2019 08:26:12 [id number] [address] [place] [address] 09/22/2017 11:07:15 09/22/2017 11:54:30 [id number] [address] [place] [address] 10/07/2017 08:59:28 10/07/2017 10:27:14 [id number] [facility] JOYCE [address] [place] [address] 09/15/2022 10:59:06 09/15/2022 15:53:02 Acute conjunctivitis of left eye 5353554182 50121 H10.32 Hordeolum externum of lower eyelid of left eye 1425822239 12640 H00.015 [id number] Long Us [place] [address] [place] [address] 01/17/2023 08:06:52 01/17/2023 08:37:10 Acute bronchitis 91307068 J20.9 Health Concerns Section Related Observation LastModified by Organization Detai ls LastModified Time None Recorded Concern Status LastModified by Organization Details LastModified Time None Recorded Advance Directives Directive None Recorded Payers Insurance Date Sequence Insurance Name Policy Number Policy Pascual Covered Member ID Pascual Member ID Guarantor Name 01/17/2023 1 [facility] Jarrett Moore [id number] Jarrett Moore 01/17/2023 1 [facility] (PPO) Jarrett Moore [id number] Jarrett Moore Notes Date Note Type [...] eyelid. AVANI CRUMP [address] [place], [address], PA - [facility] 09/15/2022 16:44:34 01/17/2023 text/html Sinus Complaints [...] Long Us NP [address] [place], [address], PA - [facility] 01/17/2023 08:31:49
[2025-01-31 10:10] LABS: MANUAL DIFF FLAG NO
[2025-01-31 10:34] LABS: Appearance Urine Turbid; Color Urine Yellow; Glucose Urine UA >=1000 mg/dL (Negative); Leukocyte Esterase Urine Negative (Negative); Nitrite Urine Negative (Negative); PH 5.5 (5.0-9.0); Specific Gravity - Urine >= 1.030 (1.005-1.025); UMIC TRIGGER UACC YES; Urine Blood Negative (Negative); Urine Ketones Trace mg/dL (Negative); Urine Protein Negative (Neg-Trace)
[2025-01-31 10:36] LABS: Basophils Absolute Auto 0.1 X10*3/uL (0.0-0.2); Basophils Percent Auto 0.5 % (0-2); Eosinophils Absolute Auto 0.1 X10*3/uL (0.0-0.4); Eosinophils Percent Auto 1.1 % (0-4); Hematocrit 51.6 % (42.0-52.0); Hemoglobin 17.2 g/dl (14.0-18.0); Imm Gran Abs Auto 0.04 X10*3/uL (0.00-0.03); Imm Gran Pct Auto 0.4 % (0.0-0.4); Lymphocytes Absolute Auto 1.9 X10*3/uL (1.2-4.9); Lymphocytes Percent Auto 19.5 % (20-40); Mean Corpuscular HGB Conc 33.3 g/dl (31.0-36.0); Mean Corpuscular Hemoglobin 30.6 pg (27.0-33.0); Mean Corpuscular Volume 91.8 fL (80.0-98.0); Mean Platelet Volume 11.5 fL (9.4-12.4); Monocytes Absolute Auto 0.7 X10*3/uL (0.1-1.2); Monocytes Percent Auto 7.6 % (2-11); Neutrophils Absolute Auto 6.9 x10*3/uL (2.0-8.3); Neutrophils Percent Auto 70.9 % (45-73); Platelet Count 173 X10*3/uL (160-400); Red Blood Count 5.62 X10*6/uL (4.60-5.80); Red Cell Distribution Width 12.5 % (11.0-16.0); White Blood Count 9.7 X10*3/uL (4.8-10.8)
[2025-01-31 10:38] LABS: Bacteria Urine None Seen (None Seen); Hyaline Casts Urine 0-2 /LPF (0-2); RBC Urine 0-2 /HPF (0-2); Squamous Epithelial Cell Urine 0-2 /HPF (0-2); WBC Urine 0-5 /HPF (0-5)
[2025-01-31 11:03] LABS: Alanine Aminotransferase 41 U/L (0-40); Albumin Level 4.2 g/dL (3.5-5.0); Alkaline Phosphatase 101 U/L (39-117); Anion Gap 13 (12-20); Aspartate Amino Transferase 33 U/L (5-37); Bilirubin Total 0.5 mg/dL (0.0-1.0); Blood Urea Nitrogen 16 mg/dL (9-16); Calcium 9.2 mg/dL (8.4-10.2); Carbon Dioxide 24 mmol/L (22-29); Chloride 106 mmol/L (96-108); Cholesterol 133 mg/dL (<200); Estimated Glomerular Filt Rate > 60; Glucose Fasting 127 mg/dL (60-99); HDL Cholesterol 25 mg/dL (>40); LDL Cholesterol Calculated 84 mg/dL (<100); Potassium 4.1 mmol/L (3.3-5.1); Prostate Specific Antigen Scr 0.17 ng/mL (<0.05-4.0); Sodium 139 mmol/L (135-145); TSH reflex Free T4 1.38 uIU/mL (0.32-4.0); Total Protein 7.4 g/dL (6.5-8.0); Triglycerides 122 mg/dL (<150)
[2025-01-31 11:09] LABS: Creatinine Urine 137.83 mg/dL; Microalbum/Creatinine Ratio Ur 18.8 ug/mg cr (<30)
== END 2025-01-31 06:30 | disposition home or self-care (01) ==
LOC: HO.HMGCLDS 06:29
PROVIDERS: PCP Nurse Practitioner Family; Referring Provider Nurse Practitioner; Visit Provider Nurse Practitioner Family
DX: Z00.01 Encounter for general adult medical examination with abnormal findings (principal); E11.9 Type 2 diabetes mellitus without complications; E78.5 Hyperlipidemia, unspecified; E66.01 Morbid (severe) obesity due to excess calories; Z12.5 Encounter for screening for malignant neoplasm of prostate
CPT/HCPCS: 36415; 80053; 80061; 81001; 82043; 82570; 84153; 84443; 85025

== ENCOUNTER 2025-04-07 07:37 | Outpatient (AMB) | payer OTHER, SELFPAY ==
[2025-04-07 07:45] VITALS: BP 108/64; PULSE 62; TEMP 36.7; O2SAT 98; BMI 37.9
--- NOTE | 2025-04-07 07:45 | MHC.OFFWIV ---
Intake Vital Signs 04/07/25 07:45 Height 6 ft 2 in Weight 295 lb BMI 37.9 BP 108/64 Blood Pressure Location Lt brachial Position Sitting Pulse 62 Pulse Source Pulse Oximeter Temp 98.0 F Temp Source Oral Pulse Oximetry (%) 98 Oxygen Delivery Method Room Air Intake Visit Reasons: EP Abdominal pain Patient Tobacco Use Status: Current everyday Tobacco user Microeconomics Professor Required: No Allergies No Known Allergies (No Known Allergies*) Allergy (Verified 04/07/25 07:50) Do you need a note to return to daycare/school/sports/work: Yes HPI HPI Comments History of Present Illness Details History - The patient is a 54-year-old male with a past med hx of DM2, HLD, GERD, diverticulosis and polyps presenting with abdominal pain. - The abdominal pain began approximately one week ago, characterized by persistent hunger-like pains in the lower abdomen, and has intensified over the past four days. - The pain is aggravated by specific movements, such as bending, and manifests as a shooting pain. - Denies nausea, vomiting, diarrhea, or fever. Denies urinary symptoms, he is moving bowels normally. No bloody or black stools. - The patient has a known history of diverticulosis, discovered during a prior colonoscopy. - The patient is awaiting a rescheduled colonoscopy, which has been postponed several times since August. Physical Exam General: Cooperative, healthy appearing, comfortable, no acute distress and well developed Orientation: Patient oriented x3 Limitations: No limitations Head: Normal to inspection Ears: Hearing grossly normal bilaterally Nose: Normal External nose present Face and sinus: Normal facial exam Mouth: normal, moist oral mucosa Eyes: Appearance normal, both eyes and all related structures Neck: Normal visual inspection and Yes full ROM Respiratory: Normal respiratory effort and able to speak in complete sentences. GI: obese abdomen, negative murphys, negative mcburneys, no TTP throughout abdomen Skin: no rashes or lesions noted Neuro: Patient oriented x3 Extremities: moving all extremities normally [facility] Medical History (Updated 04/07/25 @ 08:09 by Kaitlynn Ramachandran PA-C) Chest pain Pneumonia Cough RLQ abdominal pain Left hamstring muscle strain Strain of other extensor muscle, fascia and tendon at forearm level, left arm, initial encounter Tendonitis Lateral epicondylitis of elbow Acute pain of left lower extremity Screening PSA (prostate specific antigen) Acute respiratory disease Encounter for routine adult physical exam with abnormal findings Acute bacterial sinusitis Wheezing on auscultation Facial abscess Heart palpitations Cholelithiasis H/O splenomegaly Hepatomegaly Heart murmur Dyslipidemia Diabetes mellitus GERD (gastroesophageal reflux disease) Fatty liver Tubular adenoma of colon Splenomegaly Nicotine dependence, cigarettes, uncomplicated PONV (postoperative nausea and vomiting) Morbid obesity Erectile dysfunction Refused pneumococcal vaccination Surgical History History of colonoscopy History of ventricular septal defect repair History of umbilical hernia repair (~11/2021) History of surgery on extremity Family History Father No problems noted. Father Substance use disorder Mother Substance use disorder Maternal Uncle Substance use disorder Sister Substance use disorder Social History Housing: House Alcohol intake: current Alcohol intake frequency: holidays/special occasions only Patient Tobacco Use Status: Current everyday Tobacco user Tobacco use type: Cigarette Cigarettes Per Day: 15 Years Smoked: 25 e-Cigarette/Vaping Use: Never Used Second Hand Smoke Exposure: Yes service: No Current occupational status: employed Current occupation: [employer] Current occupational exposures/hazards: No Cognitive needs: No Hearing needs: No Vision needs: Yes Review of Systems Const All systems reviewed & are unremarkable except as noted in HPI and below Physical Exam Vital Signs: Last Vital Signs Temp 98.0 F 04/07/25 07:45 Pulse 62 04/07/25 07:45 BP 108/64 04/07/25 07:45 Pulse Ox 98 04/07/25 07:45 Oxygen Delivery Method Room Air 04/07/25 07:45 BMI result Body Mass Index 37.9 Assessment & Plan Assessment & Plan (1) Diverticulitis: Code(s): K57.92 - Diverticulitis of intestine, part unspecified, without perforation or abscess without bleeding Plan: Plan Patient was informed and verbally consented to the use of an ambient scribe for clinic note documentation during this visit 1. Diverticulitis - Clinical diagnosis of diverticulitis based on symptoms and history of diverticulosis. - Treatment plan includes a course of Augmentin for 7 days. - Patient advised to monitor for any worsening symptoms or new symptoms such as blood in stool or fever, and to seek emergency care if these occur. - I messaged Gastroenterology to expedite the rescheduling of the colonoscopy as he is experiencing abdominal pain. Medications: New amoxicillin-pot clavulanate 875-125 mg 1 tab PO Q12H 14 tabs 0RF Coding Level of Care Code Est Pt Level 3 (44084) Diagnoses Diverticulitis K57.92
== END 2025-04-07 08:15 | disposition home or self-care (01) ==
PROVIDERS: PCP Nurse Practitioner Family; Visit Provider Physician Assistant
DX: K57.92 Diverticulitis of intestine, part unspecified, without perforation or abscess without bleeding (principal)

== ENCOUNTER 2025-04-25 07:37 | Outpatient (REF) | payer OTHER, SELFPAY ==
[2025-04-25 11:11] LABS: Resp Syncy Virus RNA Qual PCR NEGATIVE (Negative); SARS COV2 PCR INHOUSE NEGATIVE (Negative)
== END 2025-04-25 07:38 | disposition home or self-care (01) ==
LOC: HO.LNP 07:37
PROVIDERS: PCP Nurse Practitioner Family; Visit Provider Physician Assistant Medical
DX: R09.81 Nasal congestion (principal); J06.9 Acute upper respiratory infection, unspecified; R05.9 Cough, unspecified; R51.9 Headache, unspecified; R09.89 Other specified symptoms and signs involving the circulatory and respiratory systems
CPT/HCPCS: 87637

== ENCOUNTER 2025-04-25 07:37 | Outpatient (AMB) | payer OTHER, SELFPAY ==
--- OUTSIDE RECORDS SUMMARY | 2025-04-25 07:39 | XMS_ITS | Clinical Summary ---
Author Organization [facility] Facility Address [address] [place] [address] Care Team Providers Care Director Operations Broadcast Name Role Phone Homero Car NP Primary Care Provider [phone] Allergies No known active allergies Medications diclofenac [...] Visual Foot Exam 01/18/2021 Influenza Vaccine (#1) 2025 Insurance [place] [employer] Care Teams Director Operations Broadcast Relationship Specialty Start Date End Date Homero Car NP [address] [place] [address] PCP - General Nurse Practitioner 01/17/21
--- NOTE | 2025-04-25 07:43 | AM.OFFWIN_ITS ---
Intake Vital Signs 04/25/25 07:46 Height 6 ft 2 in Weight 291 lb BMI 37.4 BP 114/70 Blood Pressure Location Lt brachial Position Sitting Pulse 68 Pulse Source Pulse Oximeter Temp 97.9 F Temp Source Oral Pulse Oximetry (%) 97 Oxygen Delivery Method Room Air Intake Visit Reasons: EP Head congestion, chest congestion Intake Note: presents with with head, sinus and chest congestion- minimal coughing Patient Tobacco Use Status: Current everyday Tobacco user Allergies No Known Allergies (No Known Allergies*) Allergy (Verified 04/25/25 07:47) Do you need a note to return to daycare/school/sports/work: No HPI HPI Comments History of Present Illness Details History - The patient is a 54-year-old male pres enting with symptoms of an acute upper respiratory infection. - Symptoms began two days ago, including an uncontrollable cough and head congestion. - The patient uses Vapocool for relief a nd has no history of asthma. - Annually experiences similar symptoms, often leading to sinus infections treated with Z-Jc or amoxicillin. - Smoking history noted, potentially exa cerbating respiratory issues. - He denies fever, chills, CP, SOB, abd pain, n/v/d. - He denies sick contacts, travel, RODRIGUEZ, e ar pain, or sore throat. Physical Exam General: Cooperative, healthy appearing, comfortable and no acute distress Orientation/consciousness: Patient oriented x3 Limitations: No limitations Head: Congested, but normal to inspection Ears: Hearing grossly normal bilaterally, external ears normal and TM's normal bilaterally Nose: Normal external nose present, normal nares present, and no nasal discharge present. Face and sinus: Sinuses nontender to palpation. Mouth: Normal oral and palatal mucosa present and moist mucous membranes noted. Throat: Tonsils normal. Uvula is midline. Posterior oropharynx with erythema and no exudates. Eyes: Appearance normal, both eyes and all related structures Neck: Normal visual inspection, full ROM. No lymphadenopathy noted. Respiratory: Clear to auscultation bilaterally. Normal respiratory effort, able to speak in complete sentences. No respiratory distress, not tachypneic, no tripod positioning and no use of accessory muscles. Cardiovascular: Regular rate and rhythm. Normal S1 and S2 Skin: No rashes or lesions noted Patient was informed and verbally consented to the use of an ambient scribe for clinic note documentation during this visit [facility] Medical History (Updated 04/07/25 @ 08:09 by Kaitlynn Ramachandran PA-C) Chest pain Pneumonia Cough RLQ abdominal pain Left hamstring muscle strain Strain of other extensor muscle, fascia and tendon at forearm level, left arm, initial encounter Tendonitis Lateral epicondylitis of elbow Acute pain of left lower extremity Screening PSA (prostate specific antigen) Acute respiratory disease Encounter for routine adult physical exam with abnormal findings Acute bacterial sinusitis Wheezing on auscultation Facial abscess Heart palpitations Cholelithiasis H/O splenomegaly Hepatomegaly Heart murmur Dyslipidemia Diabetes mellitus GERD (gastroesophageal reflux disease) Fatty liver Tubular adenoma of colon Splenomegaly Nicotine dependence, cigarettes, uncomplicated PONV (postoperative nausea and vomiting) Morbid obesity Erectile dysfunction Refused pneumococcal vaccination Surgical History History of colonoscopy History of ventricular septal defect repair History of umbilical hernia repair (~11/2021) History of surgery on extremity Family History Father No problems noted. Father Substance use disorder Mother Substance use disorder Maternal Uncle Substance use disorder Sister Substance use disorder Social History Housing: House Alcohol intake: current Alcohol intake frequency: holidays/special occasions only Patient Tobacco Use Status: Current everyday Tobacco user Tobacco use type: Cigarette Cigarettes Per Day: 15 Years Smoked: 25 e-Cigarette/Vaping Use: Never Used Second Hand Smoke Exposure: Yes service: No Current occupational status: employed Current occupation: [employer] Current occupational exposures/hazards: No Cognitive needs: No Hearing needs: No Vision needs: Yes Review of Systems Const All systems reviewed & are unremarkable except as noted in HPI and below Physical Exam Vital Signs: Last Vital Signs Temp 97.9 F 04/25/25 07:46 Pulse 68 04/25/25 07:46 BP 114/70 04/25/25 07:46 Pulse Ox 97 04/25/25 07:46 Oxygen Delivery Method Room Air 04/25/25 07:46 BMI result Body Mass Index 37.4 Assessment & Plan Assessment & Plan (1) URI with cough and congestion: Code(s): J06.9 - Acute upper respiratory infection, unspecified Plan Most likely URI vs covid vs flu vs RSV vs sinusitis Plan - Test for influenza and COVID-19 to exclude viral causes. - Prescribe Z-Jc - tylenol or motrin as needed - Use decongestants and cough medicine for symptom management. - VSS, pt well appearing - follow up with PCP Orders: Orders SARS-CoV2/FLU/RSV Today R09.89 - Other specified symptoms and signs involving the circulatory and respiratory systems Medications: New cetirizine-pseudoephedrine 5-120 mg ER 1 tab PO BID 14 tabs 0RF 7 days benzonatate 100 mg PO bid-tid PRN 21 caps 0RF Cough 7 days azithromycin For 250 mg dose pack: take 500 mg today (day 1), then 250 mg for 4 days (days 2-5) PO 6 tabs 0RF Coding Level of Care Code Est Pt Level 3 (84107) Diagnoses URI with cough and congestion J06.9
[2025-04-25 07:46] VITALS: BP 114/70; PULSE 68; TEMP 36.6; O2SAT 97; BMI 37.4
== END 2025-04-25 08:25 | disposition home or self-care (01) ==
PROVIDERS: PCP Nurse Practitioner Family; Visit Provider Physician Assistant Medical
DX: J06.9 Acute upper respiratory infection, unspecified (principal)

== ENCOUNTER 2025-04-29 07:33 | Outpatient (AMB) | payer OTHER, SELFPAY ==
--- OUTSIDE RECORDS SUMMARY | 2025-04-29 07:34 | XMS_ITS | Clinical Summary ---
Author Organization [facility] Facility Address [address] [place] [id number] Care Team Providers Care Dry Cell Sealer Name Role Phone Homero Car NP Primary Care Provider [phone] Allergies No known active allergies Medications diclofenac [...] Exam 01/18/2021 Influenza Vaccine (#1) 2025 Insurance Medora Holden Medora Holden Care Teams Dry Cell Sealer Relationship Specialty Start Date End Date Homero Car NP 1963 [place] [address] PCP - General Nurse Practitioner 01/17/21
[2025-04-29 07:50] VITALS: BP 102/66; PULSE 70; TEMP 36.8; O2SAT 95; BMI 37.6
--- NOTE | 2025-04-29 07:50 | MHC.OFFWIV ---
Intake Vital Signs 04/29/25 07:50 Height 6 ft 2 in Weight 293 lb BMI 37.6 BP 102/66 Blood Pressure Location Lt brachial Position Sitting Pulse 70 Pulse Source Pulse Oximeter Temp 98.2 F Temp Source Oral Pulse Oximetry (%) 95 Oxygen Delivery Method Room Air Intake Visit Reasons: EP Head and chest congestion still Patient Tobacco Use Status: Current everyday Tobacco user [employer] Consultant Required: No Allergies No Known Allergies (No Known Allergies*) Allergy (Verified 04/29/25 07:53) Do you need a note to return to daycare/school/sports/work: Yes HPI HPI Comments History of Present Illness Details This is a 54-year-old male with a past medical history of gastroesophageal reflux disease, hypertension, hyperlipidemia and tcf-mbywaph-lscxfymiy diabetes presenting for evaluation of chest congestion with cough that has been ongoing since Friday. Patient states his symptoms started with only sinus congestion and now he continues to cough. Patient was seen on April 25 and prescribed Tessalon and azithromycin which have not improved his symptoms. He denies having any fevers, chills, otalgia, pharyngitis, chest pain or overt shortness of breath. Of note, patient also had a viral panel which was negative on April 25. [facility] Medical History (Updated 04/29/25 @ 08:41 by Mari Lindquist PA-C) Chest pain Pneumonia Cough RLQ abdominal pain Left hamstring muscle strain Strain of other extensor muscle, fascia and tendon at forearm level, left arm, initial encounter Tendonitis Lateral epicondylitis of elbow Acute pain of left lower extremity Screening PSA (prostate specific antigen) Acute respiratory disease Encounter for routine adult physical exam with abnormal findings Acute bacterial sinusitis Wheezing on auscultation Facial abscess Heart palpitations Cholelithiasis H/O splenomegaly Hepatomegaly Heart murmur Dyslipidemia Diabetes mellitus GERD (gastroesophageal reflux disease) Fatty liver Tubular adenoma of colon Splenomegaly Nicotine dependence, cigarettes, uncomplicated PONV (postoperative nausea and vomiting) Morbid obesity Erectile dysfunction Refused pneumococcal vaccination Surgical History History of colonoscopy History of ventricular septal defect repair History of umbilical hernia repair (~11/2021) History of surgery on extremity Family History Father No problems noted. Father Substance use disorder Mother Substance use disorder Maternal Uncle Substance use disorder Sister Substance use disorder Social History Housing: House Alcohol intake: current Alcohol intake frequency: holidays/special occasions only Patient Tobacco Use Status: Current everyday Tobacco user Tobacco use type: Cigarette Cigarettes Per Day: 15 Years Smoked: 25 e-Cigarette/Vaping Use: Never Used Second Hand Smoke Exposure: Yes service: No Current occupational status: employed Current occupation: [employer] Current occupational exposures/hazards: No Cognitive needs: No Hearing needs: No Vision needs: Yes Review of Systems Const All systems reviewed & are unremarkable except as noted in HPI and below Denies chills, Denies fatigue, Denies fever(s) and Denies headache(s) Eyes Reports no additional complaints ENT Denies otalgia, Denies headache(s), Denies odynophagia and Denies sore throat Card Denies chest pain and Denies dyspnea Resp Reports chest congestion, Reports cough, Denies dyspnea and Denies wheezing GI Reports no additional complaints and Denies odynophagia Musc Reports no additional complaints Skin/Breast Reports system reviewed and no additional complaints, except as documented Neuro Denies headache(s) Psych Reports no additional complaints Endo Reports no additional complaints and Denies fatigue Mal/Lymph Reports no additional complaints Aller/Immun Denies wheezing Physical Exam Vital Signs: Last Vital Signs Temp 98.2 F 04/29/25 07:50 Pulse 70 04/29/25 07:50 BP 102/66 04/29/25 07:50 Pulse Ox 95 04/29/25 07:50 Oxygen Delivery Method Room Air 04/29/25 07:50 BMI result Body Mass Index 37.6 Const General: cooperative, healthy appearing, comfortable and no acute distress; No lethargic Nutritional Appearance: overweight Orientation/consciousness: patient oriented x3 and No lethargic Limitations: no limitations HEENT Head: Yes normal to inspection and Yes normocephalic Ears: hearing grossly normal bilaterally, external ears normal, TM's normal bilaterally and EAC's normal General nose exam: Normal external nose present Face and sinus: Yes normal facial exam Mouth: Normal oral and palatal mucosa present and oropharynx normal Throat: Yes posterior oropharynx normal Eyes General: appearance normal, both eyes and all related structures Neck Lymphatic: no lymphadenopathy noted Resp Effort & Inspection: normal respiratory effort, able to speak in complete sentences, no audible wheezes, respiratory effort not decreased, not labored and no nasal flaring Auscultation: wheezes lower bilaterally Cardio Rate: regular rate Rhythm: regular rhythm Skin General skin exam: no rashes or lesions noted Neuro General: patient oriented x3 Psych Appearance: grossly normal Mental Status: mental status grossly normal Insight: Good insight present (Psych) Judgement: Good judgement present (Psych) Results Reviewed Results Reviewed: CXR without acute consolidation. Assessment & Plan Assessment & Plan (1) Acute upper respiratory infection: Comment: Patient will complete previously prescribed antibiotic therapy and take Mucinex with increased clear fluids daily. Code(s): J06.9 - Acute upper respiratory infection, unspecified Plan: Add Mucinex with increasedclear fluids daily. Complete antibiotic therapy as previously prescribed. Orders: Orders XR chest 2V Today J06.9 - Acute upper respiratory infection, unspecified Coding Level of Care Code Est Pt Level 3 (86590) Diagnoses Acute upper respiratory infection J06.9
== END 2025-04-29 08:46 | disposition home or self-care (01) ==
PROVIDERS: PCP Nurse Practitioner Family; Visit Provider Physician Assistant
DX: J06.9 Acute upper respiratory infection, unspecified (principal)

== ENCOUNTER 2025-04-29 07:33 | Outpatient (REF) | payer OTHER, SELFPAY ==
--- NOTE | ~2025-04-29 | XR_ITS ---
EXAMINATION: XR CHEST 2 VIEWS HISTORY: J06.9 - Acute upper respiratory infection, unspecified COMPARISON: Comparison is made with the prior examination dated 07/12/2024. FINDINGS: PA and lateral views of the chest are submitted. The lungs are expanded and clear. There is no pleural effusion, pneumothorax, or pulmonary vascular congestion. The heart is normal in size. There is mild degenerative disc disease of the spine. XR/XR chest 2V IMPRESSION: No acute cardiopulmonary abnormality. Electronically signed by: Je Denis MD 04/29/2025 08:44 AM EDT
== END 2025-04-29 07:34 | disposition home or self-care (01) ==
LOC: HO.HMGCX 07:33
PROVIDERS: PCP Nurse Practitioner Family; Referring Provider Nurse Practitioner Family; Visit Provider Nurse Practitioner Family
DX: J06.9 Acute upper respiratory infection, unspecified (principal); R09.89 Other specified symptoms and signs involving the circulatory and respiratory systems; F17.210 Nicotine dependence, cigarettes, uncomplicated
CPT/HCPCS: 71046

== ENCOUNTER → 2025-04-29 08:31 | Outpatient (BNV) | payer OTHER, SELFPAY | PROVIDERS: PCP Nurse Practitioner Family; Referring Provider Nurse Practitioner Family; Visit Provider Radiology Diagnostic Radiology | DX: J06.9 Acute upper respiratory infection, unspecified (principal) | CPT/HCPCS: 71046 ==

== ENCOUNTER 2025-07-18 07:30 | Outpatient (AMB) | payer OTHER, SELFPAY ==
[2025-07-18 07:32] VITALS: BP 120/82; PULSE 67; TEMP 36.6; O2SAT 95; BMI 37.2
--- NOTE | 2025-07-18 07:32 | AM.OFFWIN_ITS ---
Intake Vital Signs 07/18/25 07:32 Height 6 ft 2 in Weight 290 lb BMI 37.2 BP 120/82 Blood Pressure Location Rt brachial Position Sitting Pulse 67 Pulse Source Pulse Oximeter Temp 97.8 F Temp Source Oral Pulse Oximetry (%) 95 Oxygen Delivery Method Room Air Intake Visit Reasons: EP-lt arm ache & finger numb Intake Note: Patient presents with c/o left arm aching with intermittent numbness in fingers x couple months & progressively getting worse. Patient Tobacco Use Status: Current everyday Tobacco user Allergies No Known Allergies (No Known Allergies*) Allergy (Verified 07/18/25 07:35) Do you need a note to return to daycare/school/sports/work: No HPI HPI Comments History of Present Illness Details 54 y/o Male patient presents to the walk -in clinic with complaints of posterior neck pain radiating to the left shoulder and forearm for the past 2?3 weeks. Pain is intermittent and exacerbated by certain movements and positions. Reports associated numbness and tingling of the fingers. Denies shortness of breath, chest pain, wheezing, palpitations, nausea, vomiting, headaches, or dizziness. Denies any recent injury or trauma. [facility] Medical History (Updated 07/18/25 @ 07:55 by Tasha Garcia NP) Cervicalgia Left shoulder pain Chest pain Pneumonia Cough RLQ abdominal pain Left hamstring muscle strain Strain of other extensor muscle, fascia and tendon at forearm level, left arm, initial encounter Tendonitis Lateral epicondylitis of elbow Acute pain of left lower extremity Screening PSA (prostate specific antigen) Acute respiratory disease Encounter for routine adult physical exam with abnormal findings Acute bacterial sinusitis Wheezing on auscultation Facial abscess Heart palpitations Cholelithiasis H/O splenomegaly Hepatomegaly Heart murmur Dyslipidemia Diabetes mellitus GERD (gastroesophageal reflux disease) Fatty liver Tubular adenoma of colon Splenomegaly Nicotine dependence, cigarettes, uncomplicated PONV (postoperative nausea and vomiting) Morbid obesity Erectile dysfunction Refused pneumococcal vaccination Surgical History History of colonoscopy History of ventricular septal defect repair History of umbilical hernia repair (~11/2021) History of surgery on extremity Family History Father No problems noted. Father Substance use disorder Mother Substance use disorder Maternal Uncle Substance use disorder Sister Substance use disorder Social History Housing: House Alcohol intake: current Alcohol intake frequency: holidays/special occasions only Patient Tobacco Use Status: Current everyday Tobacco user Tobacco use type: Cigarette Cigarettes Per Day: 15 Years Smoked: 25 e-Cigarette/Vaping Use: Never Used Second Hand Smoke Exposure: Yes service: No Current occupational status: employed Current occupation: [employer] Current occupational exposures/hazards: No Cognitive needs: No Hearing needs: No Vision needs: Yes Review of Systems Const All systems reviewed & are unremarkable except as noted in HPI and below Physical Exam Vital Signs: Last Vital Signs Temp 97.8 F 07/18/25 07:32 Pulse 67 07/18/25 07:32 BP 120/82 07/18/25 07:32 Pulse Ox 95 07/18/25 07:32 Oxygen Delivery Method Room Air 07/18/25 07:32 BMI result Body Mass Index 37.2 Const General: no acute distress Nutritional Appearance: obese morbidly obese Orientation/consciousness: patient oriented x3 Resp Effort & Inspection: normal respiratory effort Cardio Heart sounds: S1 normal heart sound present and S2 normal heart sound present Back/Spine/Pelvis Cervical Spine: cervical ROM normal Neuro General: patient oriented x3, gait normal and moves all extremities Extrem Left upper extremity: shoulder/upper arm Details: inspection abnormal and normal ROM; no swelling and no crepitus, elbow/forearm Details: normal to inspection, normal ROM and distal pulses intact; no tenderness, no swelling, no crepitus and no deformity and hand Details: normal capillary refill and normal ROM of fingers Psych Speech and movement: Normal speech and movement present Assessment & Plan Assessment & Plan (1) Left shoulder pain: Code(s): M25.512 - Pain in left shoulder Qualifiers: Chronicity: acute Qualified Code(s): M25.512 - Pain in left shoulder Plan: Ordered ECG to r/o WA or any Cardiac (SINUS RHYTHM) Ordered Xray Left Shoulder to r/o Fx or OA. NSAIDs or muscle relaxant as indicated for pain management. Recommend warm compresses, gentle neck stretches, and activity modification. Consider referral to physical therapy if no improvement. (2) Cervicalgia: Code(s): M54.2 - Cervicalgia Plan: Ordered ECG to r/o WA or any Cardiac Ordered Xray Left Shoulder to r/o Fx or OA. NSAIDs or muscle relaxant as indicated for pain management. Recommend warm compresses, gentle neck stretches, and activity modification. Consider referral to physical therapy if no improvement. Orders: Orders XR shoulder LT min 2V Today M25.512 - Pain in left shoulder XR cervical spine 3V Today M25.512 - Pain in left shoulder AMB EKG-In Office Today R07.89 - Other chest pain Coding Level of Care Code Est Pt Level 4 (22729) Diagnoses Acute pain of left shoulder M25.512 Chronicity: acute Cervicalgia M54.2 Time Spent (min) 20
--- OUTSIDE RECORDS SUMMARY | 2025-07-18 07:33 | XMS_ITS | Clinical Summary ---
Author Organization [facility] Facility Address [address] [place] [address] Care Team Providers Care Director Of Industrial Relations Name Role Phone Homero Car NP Primary Care Provider [phone] Allergies No known active allergies Medications diclofenac [...] Exam 01/18/2021 Influenza Vaccine (#1) 2025 Insurance [employer] Holden [employer] Care Teams Director Of Industrial Relations Relationship Specialty Start Date End Date Homero Car NP 1963 [place] [address] PCP - General Nurse Practitioner 01/17/21
--- OUTSIDE RECORDS SUMMARY | 2025-07-18 07:33 | XMS_ITS | Data Portability ---
Author Organization [facility], [address] Address [address] [place] [address] Care Team Providers Care Pediatric Clinical Nurse Specialist Name Role Phone [facility] Primary Care Provider [phone] Assessment No assessment recorded. Plan of Treatment Reminders Order Date Submit Date Provider Last Modified By Organization Details Last Modified Time Details Appointments None recorded. Lab None recorded. Referral None recorded. Procedures None recorded. Surgeries None recorded. Imaging None recorded. Medication Orders prednisone 20 mg tablet 2022 023 [facility] #0693, [address] [place], [address], 3 08:31:44 albuterol sulfate HFA 90 mcg/actuati on aerosol inhaler 2022 023 [facility] [address] [place], [address], 3 08:31:43 benzonatate 200 mg capsule 2022 023 [facility] [address] [place], [address], 3 08:31:44 Allergy Relief (fluticason e) 50 mcg/actuati on nasal spray,suspe nsion 2022 023 [facility] #0693, [address] [place], [address], 3 08:31:44 Polytrim 10,000 unit-1 mg/mL eye drops 2022 023 [email or web address] [facility] #0693, [address] [facility] [place], [address], 08:19:30 erythromyci n 5 mg/gram (0.5 %) eye ointment 2022 023 [facility] #0693, [address] [place], [address], 08:19:27 Patient TargetsNo targets recorded. Patient Instructions Encounter Date Encounter Id Patient Instructions Last Modified By Organization Details Last Modified Time 09/15/2022 [id number] fredyurbanoe: care instructions sghohestanib Not available 09/15/2022 15:40:10 [...] you! sghohestanib Not available 09/15/2022 15:40:09 01/17/2023 [id number] Patient instruct ed on worsening signs and [...] Address Organization Details Recorded Time Hypercholestero lemia 19819483 Active 2022 MICHELE DEPINTO null, PA - [facility] 3 15:24:10 Diabetes mellitus 97404928 Active 2022 MICHELE DEPINTO null, PA - [facility] 3 15:24:14 Heart murmur 39478963 Active 2022 MICHELE DEPINTO null, PA - [facility] 3 15:26:08 Problem Notes None recorded. Procedures Surgical History Date Name Laterality Status Provider Name and Address Organization Details Recorded Time hernia repair completed MICHELE NEYINTO PA - [facility] 09/15/2022 15:25:10 excision [...] n 5 mg/gram (0.5 %) eye ointment Apply 1 applicati on 4 times a day by ophthalmi c route for 7 days. 01/17 completed Not Available Not Available Not Available Polytrim 10,000 unit-1 mg/mL eye drops [...] in Arterial blood by Pulse oximetry Systolic And Diastolic Provider Name and Address Organization Details Last Updated DateTime 3 187.96 cm 41.1 kg/m2 810793. 56 g 6 97.2 [degF] 19 /min 69 /min 98 % 98 % 151/88 mm[Hg] MICHELE GODWIN PA - [facility] 3 15:27:51 Date Recorded Body height Body mass index (BMI) Body weight Pain severity - 0-10 verbal numeric rating [Score] - Reported Respiratory rate Oxygen saturation Oxygen saturation in Arterial blood by Pulse oximetry Heart rate Body temperature Systolic And Diastolic Provider Name and Address Organization Details Last Updated DateTime 3 187.96 cm 41.1 kg/m2 240468. 56 g 0 20 /min 98 % 98 % 74 /min 98.6 [degF] 132/88 mm[Hg] YAMILET SANTILLAN PA - [facility] 3 08:21:01 Social History Question Answer Notes LastModified by [...] Diagnosis SNOMED-CT Code Diagnosis ICD10 Code Diagnosis IMO Codes Diagnosis Note [id number] [address] [place] [address] 06/22/2020 11:20:48 06/22/2020 12:04:15 [id number] [address] [place] [address] 04/26/2021 18:10:23 04/26/2021 20:00:01 [id number] [address] [place] [address] 10/05/2017 08:45:35 10/05/2017 09:10:52 [id number] [address] [place] [address] 06/16/2018 08:13:36 06/16/2018 08:41:58 [id number] [address] [place] [address] 06/14/2018 08:04:50 06/14/2018 08:40:24 [id number] [address] [place] [address] 10/03/2020 17:58:01 10/03/2020 19:06:40 [id number] [address] [place] [address] 02/16/2018 18:37:52 02/16/2018 20:00:02 [id number] [address] [place] [address] 09/26/2019 08:07:29 09/26/2019 08:26:12 [id number] [address] [place] [address] 09/22/2017 11:07:15 09/22/2017 11:54:30 [id number] [address] [place] [address] 10/07/2017 08:59:28 10/07/2017 10:27:14 [id number] AVANI JOYCE [address] [place] [address] 09/15/2022 10:59:06 09/15/2022 15:53:02 Acute conjunctivitis of left eye 9839606440 56615 H10.32 Hordeolum externum of lower eyelid of left eye 4244174230 62724 H00.015 [id number] [place] [address] [place] [address] 01/17/2023 08:06:52 01/17/2023 08:37:10 Acute bronchitis 87164601 J20.9 Health Concerns Section Related Observation LastModified by Organization Detai ls LastModified Time None Recorded Concern Status LastModified by Organization Details LastModified Time None Recorded Advance Directives Directive None Recorded Payers Insurance Date Sequence Insurance Name Policy Number Policy Pascual Covered Member ID Pascual Member ID Guarantor Name 01/17/2023 1 VINNY Moore [id number] Jarrett Moore 01/17/2023 1 VINNY (PPO) Jarrett Moore [id number] Jarrett Moore Notes Date Note Type Note Provider Name and Address Organization Details Recorded Time 3 text/html Jarrett is a 51 yo M here for evaluation of left eye redness, irritation, pain and itching x yesterday. + discharge. + stye to the left lower eye lid as well. No contact lens use. No vision changes. Has been applying warm tea bags to the eyelid. AVANI VARMA JD [address] [place], [address], [place] - [facility] 09/15/2022 16:44:34 3 text/html Sinus Complaints UCReported by PatientHPIFor location, patient reportssinus pain,facial pain, andsinus pressure. For associated symptoms, patient reportsdifficulty breathing,post nasal drip,nasal passage blockage __, andcoughbut reportsno fever,no nausea or vomiting,no sore throat,no ear fullness,no nasal itching,no eye itching, andno dizziness. For quality, patient reportsworseningbut reportsminimal discomfortandclear. For context, patient reportsworse with environmental exposurebut reportsno recent upper respiratory infection,no recent sick contacts, andnot worse with seasonal allergen exposure. For onset/timing, patient reportsworse in amandworse in pm. For duration, patient reportsfrequent. For severity, patient reportsmoderate. For risk factors, patient reportsno current smoking or tobacco useandno history of nasal trauma. For alleviating factors, patient reportsoral steroids. For aggravating factors, patient reportsworse during an upper respiratory infection (a cold)andworse with excess fatigue. For prior treatment, patient reportsoral decongestant. Shortness of BreathReported by Patient CongestionReported by Patient Long Us NP [address] [place], [address], [place] - [facility] 01/17/2023 08:31:49
== END 2025-07-18 08:30 | disposition home or self-care (01) ==
PROVIDERS: PCP Nurse Practitioner Family; Visit Provider Nurse Practitioner Family
DX: M25.512 Pain in left shoulder (principal); M54.2 Cervicalgia

== ENCOUNTER 2025-07-18 07:30 | Outpatient (REF) | payer OTHER, SELFPAY ==
--- NOTE | ~2025-07-18 | XR_ITS ---
EXAMINATION: XR SHOULDER 2 OR MORE VIEWS LEFT HISTORY: M25.512 - Pain in left shoulder COMPARISON: There are no prior studies available for comparison. FINDINGS: Three views of the left shoulder are submitted. Osseous mineralization is normal. There is no fracture or dislocation. The glenohumeral joint space is maintained. There is moderate osteoarthritis of the AC joint with joint space narrowing. The soft tissues are unremarkable. XR/XR shoulder LT min 2V IMPRESSION: Moderate osteoarthritis of the AC joint. Electronically signed by: Je Denis MD 07/18/2025 08:52 AM [facility]
--- NOTE | ~2025-07-18 | XR_ITS ---
EXAMINATION: XR CERVICAL SPINE CLINICAL INFORMATION: M25.512 - Pain in left shoulder COMPARISON: None available. TECHNIQUE: 3 views of the cervical spine were obtained. FINDINGS: Bone mineralization is decreased. There is a round radiopaque density projected over the C2 vertebral body on the lateral view, presumably overlying the patient. Associated limitation in evaluation. Cervical spine is visualized from C1-C6 level. In the visualized spine, no evidence of acute fracture or spondylolisthesis. Vertebral body heights are maintained. Small chronic ossification along the anterior aspect of the C2 inferior endplate. Disc spaces are relatively maintained. Mild facet degeneration in the lower lumbar spine. No suspicious findings in lung apices.. XR/XR cervical spine 3V IMPRESSION: Visualized from C1-C6 level. No acute osseous findings. Round radiodense opacity projected over the C2, presumably overlying the patient. Electronically signed by: Jovan Jimenez MD 07/18/2025 08:54 AM [facility]
== END 2025-07-18 07:31 | disposition home or self-care (01) ==
LOC: HO.HMGCX 07:30
PROVIDERS: PCP Nurse Practitioner Family; Visit Provider Nurse Practitioner Family
DX: M25.512 Pain in left shoulder (principal); M54.2 Cervicalgia; R07.89 Other chest pain
CPT/HCPCS: 72040; 73030

== ENCOUNTER → 2025-07-18 08:33 | Outpatient (BNV) | payer OTHER, SELFPAY | PROVIDERS: PCP Nurse Practitioner Family; Visit Provider Radiology Diagnostic Radiology | DX: M25.512 Pain in left shoulder (principal); M19.012 Primary osteoarthritis, left shoulder | CPT/HCPCS: 72040; 73030 ==

== ENCOUNTER 2025-08-31 11:58 | Outpatient (AMB) | payer OTHER, SELFPAY ==
[2025-08-31 12:03] VITALS: BP 126/70; PULSE 62; TEMP 36.4; O2SAT 97; BMI 37.9
--- NOTE | 2025-08-31 12:03 | AM.OFFWIN_ITS ---
Intake Vital Signs 08/31/25 12:03 Height 6 ft 2 in Weight 295 lb BMI 37.9 BP 126/70 Blood Pressure Location Lt brachial Position Sitting Pulse 62 Pulse Source Pulse Oximeter Temp 97.5 F Temp Source Oral Pulse Oximetry (%) 97 Oxygen Delivery Method Room Air Intake Visit Reasons: EP jaw pain on right side of face radiates to head Intake Note: pt presents with right sided jaw pain radiating up into top of ear for 3 days Patient Tobacco Use Status: Current everyday Tobacco user Allergies No Known Allergies (No Known Allergies*) Allergy (Verified 08/31/25 12:03) Do you need a note to return to daycare/school/sports/work: Yes HPI HPI Comments History of Present Illness Details 3 days R sided jaw Progressively more painful Similar in past with sinus congestion No tooth sensitivity Settles down and pain worsens in intensity recently. Worse after eating Pain 5/10 aching pain No individual ear pain No L sided ear pain No congestion, sinus pain, fever, chills or cold like symptoms Has tried tylenol/Ibuprofen. Ibuprofen helps more Cold packs help No hearing issues No CP or SOB PFSH Medical History (Updated 08/31/25 @ 15:36 by Akila Green PA-C) Cervicalgia Left shoulder pain Chest pain Cough RLQ abdominal pain Left hamstring muscle strain Strain of other extensor muscle, fascia and tendon at forearm level, left arm, initial encounter Tendonitis Lateral epicondylitis of elbow Acute pain of left lower extremity Screening PSA (prostate specific antigen) Acute respiratory disease Acute bacterial sinusitis Facial abscess Heart palpitations Cholelithiasis H/O splenomegaly Hepatomegaly Heart murmur Dyslipidemia Diabetes mellitus GERD (gastroesophageal reflux disease) Fatty liver Tubular adenoma of colon Splenomegaly Nicotine dependence, cigarettes, uncomplicated PONV (postoperative nausea and vomiting) Morbid obesity Erectile dysfunction Refused pneumococcal vaccination Surgical History History of colonoscopy History of ventricular septal defect repair History of umbilical hernia repair (~11/2021) History of surgery on extremity Family History Father No problems noted. Father Substance use disorder Mother Substance use disorder Maternal Uncle Substance use disorder Sister Substance use disorder Social History Housing: House Alcohol intake: current Alcohol intake frequency: holidays/special occasions only Patient Tobacco Use Status: Current everyday Tobacco user Tobacco use type: Cigarette Cigarettes Per Day: 15 Years Smoked: 25 e-Cigarette/Vaping Use: Never Used Second Hand Smoke Exposure: Yes service: No Current occupational status: employed Current occupation: [employer] Current occupational exposures/hazards: No Cognitive needs: No Hearing needs: No Vision needs: Yes Review of Systems Const Denies body aches, Denies chills, Denies fatigue, Denies fever(s) and Denies headache(s) Eyes Denies change in vision ENT Denies dizziness, Reports otalgia (dental pain radiation into R ear), Denies headache(s), Denies mouth lesions, Reports mouth pain, Denies nasal congestion, Denies sinus pain, Denies sinus pressure, Denies sore throat, Denies throat swelling, Denies tongue swelling and Reports other (dental pain R side gum) Card Denies chest pain and Denies dyspnea Resp Denies dyspnea Skin/Breast Denies rash and Denies skin swelling Neuro Denies dizziness and Denies headache(s) Endo Denies fatigue Aller/Immun Denies throat swelling and Denies tongue swelling Physical Exam Exam Exam: General: Non-toxic, NAD. Speaking full sentences. Skin: Warm dry throughout. No vesicular lesions or rashes to scalp, face or neck. No R mastoid erythema or edema Eye: EOMI HENT: Airway patent. Uvula midline. No pharyngeal erythema or edema. No TALENT MANAGEMENT MANAGER. + missing dentition to R lower gum without ginigival edema or abscess visualized or palpated to upper or lower gums No sublingual edema, induration, tenderness to mass to palpation No tongue edema Bilateral canals clear. TM non-erythematous, non-bulging. No TM perforation or hemotympanum noted. No mastoid ttp bilaterally. Neck: No submandibular edema, induration or fluctuance. No TMJ ttp or crepitus. Respiratory: CTA bilaterally. No wheezes, rales or rhonchi Cardiac: RRR. No murmur. No carotid bruits R side. MSK: Full ROM extremities. Neurology: Alert. No aphasia or facial droop. Gait without abnormality Psych: Good mood and affect Vital Signs: Last Vital Signs Temp 97.5 F 08/31/25 12:03 Pulse 62 08/31/25 12:03 BP 126/70 08/31/25 12:03 Pulse Ox 97 08/31/25 12:03 Oxygen Delivery Method Room Air 08/31/25 12:03 BMI result Body Mass Index 37.9 Assessment & Plan Assessment & Plan (1) Jaw pain: Code(s): R68.84 - Jaw pain Plan: Patient seen and evaluated No oral abscess or concern ludwigs on examination No cardiac symptoms and no burits noted on exam No sign of shingles but explained to pt to monitor for rash and call if this occurs No TMJ ttp or crepitus No OM or OE or mastoiditis on exam MLD at this time is jaw pain secondary to poor dentition and ginigval infection Amoxicilin, head elevation, ibuprofen F/U with PCP ER s/s discussed Pt gave verbal understanding and had no additional questions or concerns at time of discharge Medications: New amoxicillin 875 mg PO BID 14 tabs 0RF Coding Level of Care Code Est Pt Level 3 (83812) Diagnoses Jaw pain R68.84
== END 2025-08-31 13:32 | disposition home or self-care (01) ==
PROVIDERS: PCP Nurse Practitioner Family; Visit Provider Physician Assistant
DX: R68.84 Jaw pain (principal)